=== PATIENT | male | born 1950 | race Caucasian/White ===

== ENCOUNTER 2017-10-17 09:57 | Emergency (ER) | payer MEDICARE ==
[~2017-10-17] VITALS: Ht 188 cm; Wt 98.0 kg
[~2017-10-17 09:57] MED LIST: BENA5TAB6 PO; CLON-514 PO; FLO0.4C PO; PROP10TA10 PO
[2017-10-17 10:34] LABS: BASOPHILS % (AUTO) 0.3 % (0-1); EOSINOPHILS # (AUTO) 0.1 X10'3 (0-0.9); HEMATOCRIT 48.8 % (42.0-52.0); HEMOGLOBIN 16.7 g/dl (14.0-17.9); LYMPHOCYTES % (AUTO) 29.7 % (21-51); MEAN CORPUSCULAR HEMOGLOBIN 28.6 PG (27.0-31.0); MEAN CORPUSCULAR HGB CONC 34.2 % (33.0-36.5); MEAN CORPUSCULAR VOLUME 83.6 FL (78-98); MEAN PLATELET VOLUME 7.5 FL (7.4-10.4); MONOCYTES # (AUTO) 0.7 X10'3 (0-0.9); MONOCYTES % (AUTO) 9.6 % (2-12); NEUTROPHILS % (AUTO) 59.4 % (42-75); PLATELET COUNT 325 X10'3 (140-440); RED BLOOD COUNT 5.83 X10'6 (4.70-6.10); WHITE BLOOD COUNT 6.8 X10'3 (4.5-11.0)
[2017-10-17 10:45] LABS: PARTIAL THROMBOPLASTIN TIME 29 SECONDS (22-32); PROTHROMBIN TIME 10.5 SECONDS (9.0-12.0)
[2017-10-17] MEDS ORDERED: ketorolac trometh inj. 60 MG/2 ML VIAL IM ONE (10:50)
[2017-10-17] MEDS ORDERED: ketorolac tromethamine 15mg/ml inj. IM ONE (10:50)
[2017-10-17 10:51] LABS: ALANINE AMINOTRANSFERASE 38 U/L (12-78); ALBUMIN 3.8 G/DL (3.4-5.0); ALBUMIN/GLOBULIN RATIO 0.9 (1.1-1.5); ALKALINE PHOSPHATASE 103 IU/L (46-116); ANION GAP 6 (8-16); ASPARTATE AMINO TRANSFERASE 19 U/L (10-37); BILIRUBIN,TOTAL 0.5 MG/DL (0.1-1.0); BLOOD UREA NITROGEN 16 MG/DL (7-18); CALCIUM 9.5 MG/DL (8.5-10.1); CHLORIDE 101 MMOL/L (99-107); GLUCOSE 136 MG/DL (70-104); SODIUM 136 MMOL/L (135-145); TOTAL CARBON DIOXIDE 28.6 MMOL/L (24-32); TOTAL PROTEIN 8.1 G/DL (6.4-8.2); eGFR 75 ML/MIN
[2017-10-17 11:09] VITALS: BP 159/98
[2017-10-17] MEDS ORDERED: TRAM50TA2 PO (11:38)
== END 2017-10-17 11:42 | disposition home or self-care (01) ==
LOC: ER 09:57
DX: S29.019A Strain of muscle and tendon of unspecified wall of thorax, initial encounter (principal); G89.29 Other chronic pain; I10 Essential (primary) hypertension; Z98.890 Other specified postprocedural states; Z91.09 Other allergy status, other than to drugs and biological substances; Z79.899 Other long term (current) drug therapy; X58.XXXA Exposure to other specified factors, initial encounter; Y93.89 Activity, other specified; Y92.89 Other specified places as the place of occurrence of the external cause; Y99.8 Other external cause status
CPT/HCPCS: 36415; 71045; 80053; 84484; 85025; 85610; 85730; 93005; 96372; 99285; J1885

== ENCOUNTER 2020-09-14 04:19 | Emergency (ER) | payer MEDICARE, OTHER ==
[~2020-09-14] VITALS: Ht 188 cm; Wt 97.7 kg
[~2020-09-14 04:19] MED LIST changes: -CLON-514 PO; +CLON1TAB96 PO
[2020-09-14] MEDS ORDERED: mag hydrox/Alum hydrox/simeth 30ml oral suspension PO ONE (04:30)
[2020-09-14] MEDS ORDERED: LIDOcaine Viscous 15ml cup MM PRN (04:30)
[2020-09-14] MEDS ORDERED: sucralfate 1gm/10ml UD suspension PO ONE (04:39)
--- NOTE | 2020-09-14 04:52 | NUR ---
pt refusing full cardiac workup and only wants the gi cocktail. edmd flora made aware and gi cocktail ordered
--- NOTE | 2020-09-14 05:13 | NUR ---
pt reports no relief with the GI cocktail. pt continues to refuse the cardiac workup. la hines made aware.
[2020-09-14] MEDS ORDERED: ondansetron 4mg rapidly disintigrating tab PO ONE (05:20)
--- NOTE | 2020-09-14 05:40 | NUR ---
PT IS HOSTILE WITH STAFF, DEMANING [facility] "TO MAKE ME VOMIT." ATTEMPTED TO INFORM PT THAT WE DONT ADMINISTER THAT MEDICATION HERE AND PT REPORTS NO RELIEF OF NAUSEA OR HEARTBURN AND RAISING VOICE AT STAFF. EDMD MILNER MADE AWARE OF PT REQUEST AND THAT PT WAS BECOMING HOSTILE AND IRRITABLE WITH STAFF.
[2020-09-14] MEDS ORDERED: morphine 4 MG/ML inj SYRINge IV ONE (06:40)
[2020-09-14] MEDS ORDERED: metoclopramide 5 mg/ml inj IV ONE (06:40)
[2020-09-14] MEDS ORDERED: diphenhydrAMINE 50 mg/ml inj IV ONE (06:40)
[2020-09-14] MEDS ORDERED: iohexol 300mg/ml 100ml inj. ONE (07:04)
[2020-09-14] MEDS ORDERED: oxyCODONE/APAP 5-325mg tablet PO ONE (07:15)
[2020-09-14 07:46] LABS: BASOPHILS # (AUTO) 0.1 X10'3 (0-0.2); BASOPHILS % (AUTO) 0.4 % (0-1); EOSINOPHILS % (AUTO) 0.1 % (0-6); HEMATOCRIT 48.4 % (42.0-52.0); HEMOGLOBIN 16.6 g/dl (14.0-17.9); LYMPHOCYTES # (AUTO) 0.8 X10'3 (1.1-4.8); LYMPHOCYTES % (AUTO) 6.4 % (21-51); MEAN CORPUSCULAR HEMOGLOBIN 29.3 PG (27.0-31.0); MEAN CORPUSCULAR HGB CONC 34.3 g/dL (33.0-36.5); MEAN CORPUSCULAR VOLUME 85.3 FL (78-98); MEAN PLATELET VOLUME 8.3 FL (7.4-10.4); MONOCYTES % (AUTO) 7.9 % (2-12); NEUTROPHILS # (AUTO) 11.1 X10'3 (1.8-7.7); NEUTROPHILS % (AUTO) 85.2 % (42-75); PLATELET COUNT 317 X10'3 (140-440); RED BLOOD COUNT 5.67 X10'6 (4.70-6.10); RED CELL DISTRIBUTION WIDTH 14.6 % (11.5-14.5); WHITE BLOOD COUNT 13.1 X10'3 (4.5-11.0)
[2020-09-14 07:58] LABS: ALANINE AMINOTRANSFERASE 33 U/L (12-78); ALBUMIN/GLOBULIN RATIO 0.9 (1.1-1.5); ALKALINE PHOSPHATASE 83 IU/L (46-116); ANION GAP 11 (8-16); ASPARTATE AMINO TRANSFERASE 19 U/L (10-37); BILIRUBIN,TOTAL 0.5 MG/DL (0.1-1.0); BLOOD UREA NITROGEN 23 MG/DL (7-18); BUN/CREATININE RATIO 19.8 (5.4-32.0); CALCIUM 9.5 MG/DL (8.5-10.1); CHLORIDE 101 MMOL/L (99-107); CREATININE 1.16 MG/DL (0.60-1.10); GLUCOSE 165 MG/DL (70-104); POTASSIUM 3.6 MMOL/L (3.5-5.1); SODIUM 141 MMOL/L (135-145); TOTAL CARBON DIOXIDE 29.2 MMOL/L (24-32); TOTAL PROTEIN 8.7 G/DL (6.4-8.2); eGFR 62 ML/MIN
[2020-09-14 08:02] LABS: LIPASE 159 U/L (73-393); TROPONIN I < 0.04 NG/ML (0.0-0.05)
--- NOTE | 2020-09-14 08:17 | NUR ---
Reports pain down to 7/10 from /10.
--- NOTE | 2020-09-14 08:20 | NUR ---
patient to ct.
[2020-09-14] MEDS ORDERED: FAMO40TA73 PO ×3 (09:33→10:30)
[2020-09-14] MEDS ORDERED: famotidine/PF 10 mg/ml inj IV ONE (10:05)
[2020-09-14 10:57] VITALS: BP 138/77
== END 2020-09-14 10:58 | disposition home or self-care (01) ==
LOC: ER 04:21
DX: R10.13 Epigastric pain (principal); N28.89 Other specified disorders of kidney and ureter; R11.2 Nausea with vomiting, unspecified; E11.9 Type 2 diabetes mellitus without complications; I10 Essential (primary) hypertension; G89.29 Other chronic pain; J44.9 Chronic obstructive pulmonary disease, unspecified; Z98.890 Other specified postprocedural states; Z90.49 Acquired absence of other specified parts of digestive tract; Z91.048 Other nonmedicinal substance allergy status; Z79.899 Other long term (current) drug therapy
CPT/HCPCS: 36415; 74177; 80053; 83690; 84484; 85025; 93005; 96374; 96375; 99285; J1200; J2765; J3490; Q9967

== ENCOUNTER 2020-10-26 05:45 | Inpatient (IN) | payer OTHER ==
[2020-10-19 16:01] LABS: BASOPHILS % (AUTO) 0.5 % (0-1); EOSINOPHILS % (AUTO) 0.6 % (0-6); LYMPHOCYTES # (AUTO) 1.7 X10'3 (1.1-4.8); LYMPHOCYTES % (AUTO) 32.9 % (21-51); MEAN CORPUSCULAR HEMOGLOBIN 28.5 PG (27.0-31.0); MEAN CORPUSCULAR HGB CONC 34.5 g/dL (33.0-36.5); MEAN CORPUSCULAR VOLUME 82.8 FL (78-98); MEAN PLATELET VOLUME 8.1 FL (7.4-10.4); MONOCYTES # (AUTO) 0.7 X10'3 (0-0.9); MONOCYTES % (AUTO) 13.5 % (2-12); NEUTROPHILS # (AUTO) 2.7 X10'3 (1.8-7.7); NEUTROPHILS % (AUTO) 52.5 % (42-75); PRE OP HEMATOCRIT 50.3 % (42.0-52.0); PRE OP HEMOGLOBIN 17.3 g/dL (14.0-17.9); PRE OP PLATELET COUNT 289 X10'3 (140-440); RED BLOOD COUNT 6.07 X10'6 (4.70-6.10); RED CELL DISTRIBUTION WIDTH 14.3 % (11.5-14.5)
[2020-10-19 16:06] LABS: PRE OP INR 1.1 INR; PRE OP PROTIME 11.1 SECONDS (9.0-12.0)
[2020-10-19 16:09] LABS: ALBUMIN 4.2 G/DL (3.4-5.0); ALBUMIN/GLOBULIN RATIO 0.9 (1.1-1.5); ALKALINE PHOSPHATASE 98 IU/L (46-116); BLOOD UREA NITROGEN 13 MG/DL (7-18); BUN/CREATININE RATIO 12.5 (5.4-32.0); CALCIUM 9.9 MG/DL (8.5-10.1); CHLORIDE 104 MMOL/L (99-107); CREATININE 1.04 MG/DL (0.60-1.10); PRE OP ALT 34 U/L (30-65); PRE OP ANION GAP 7 (8-16); PRE OP AST 22 U/L (10-37); PRE OP BILIRUB, TOTAL 0.5 MG/DL (0.0-1.0); PRE OP GLUCOSE 116 MG/DL (70-104); PRE OP POTASSIUM 4.1 MMOL/L (3.4-5.1); PRE OP SODIUM 142 MMOL/L (135-145); TOTAL PROTEIN 8.9 G/DL (6.4-8.2); eGFR 71 ML/MIN
[2020-10-26] VITALS (28 sets, daily range): BP systolic 107–142; BP diastolic 47–72
[~2020-10-26] VITALS: Ht 185.4 cm; Wt 97.3 kg
[~2020-10-26 05:45] MED LIST changes: +AMLO2.5T5 PO; +BENA20TA10 PO; -BENA5TAB6 PO; +CETI10TA18 PO; +DOCUMENT DATE & TIME OF BETA-BLOCKER PO ONE; +ESOM20CA PO; +METO-384 PO; -PROP10TA10 PO; +cefazolin/dext.iso 2gm/100ml IV ONE; +famotidine 20mg tablet PO ONE; +ringers solution, lacted 1,000 ML IV SCH
[2020-10-26] MEDS ORDERED: BUPIVAcaine 0.5% W/EPI /PF 30ml vial ONE ×2 (07:04→11:40)
[2020-10-26] MEDS ORDERED: sevoflurane 250ml liquid IH ONE (07:22)
[2020-10-26] MEDS ORDERED: rocuronium 10mg/ml inj IV ONE ×3 (07:22→08:14)
[2020-10-26] MEDS ORDERED: naloxone 0.4 mg/ml inj ONE (07:22)
[2020-10-26] MEDS ORDERED: dexamethasone sod phosphate 10mg/ml inj ONE (07:22)
[2020-10-26] MEDS ORDERED: morphine 4 MG/ML inj SYRINge IV PRN (07:25)
[2020-10-26] MEDS ORDERED: ondansetron/PF 4mg/2ml inj IV PRN (07:25)
[2020-10-26] MEDS ORDERED: meperidine/PF 25mg/ml syringe IV PRN ×2 (07:25)
[2020-10-26] MEDS ORDERED: proCHLORperazine 10 MG/2 ml inj IV PRN (07:25)
[2020-10-26] MEDS ORDERED: ringers solution, lacted 1,000 ML IV SCH (07:25)
[2020-10-26] MEDS ORDERED: morphine 2 MG/ML inj. syringe IV PRN (07:25)
[2020-10-26] MEDS ORDERED: midazolam 1 mg/ML 2ml injection ONE (07:27)
[2020-10-26] MEDS ORDERED: fentaNYL /PF 50mcg/ml 5ml ampule ONE ×2 (07:29→08:00)
[2020-10-26] MEDS ORDERED: propofol inj 20 ML IV ONE (07:29)
[2020-10-26] MEDS ORDERED: LIDOcaine 2% (20mg/ml) 5ml vial ONE (07:29)
[2020-10-26] MEDS ORDERED: ondansetron/PF 4mg/2ml inj ONE (08:02)
[2020-10-26] MEDS ORDERED: albumin (Human) 5% 250ml 250 ML IV ONE (09:48)
[2020-10-26] MEDS ORDERED: acetaminophen 1,000mg/100ml IV 100 ML IV ONE (11:35)
--- NOTE | 2020-10-26 11:58 | NUR ---
Received from OR via BED, accompanied by Anesthesiologist DR ZHAO and report given by Anesthesiologist. PT VERY DROWSY, NO S/S OF DISTRESS/DISCOMFORT. ABDOMEN W/2 LAP SITES W/BANDAIDS CDI, VERTICLE LEFT LATERAL INCISION W/ISLAND DRSG COVERING CDI, NOLASCO CATHETER TO GRAVITY DRAINAGE W/YELLOWISH/PINK URINE IN DRAINAGE BAG. TONJA TEMPLE AND SCD'S ON. Addendum: 10/26/20 at 1236 by Kera Clarke RN Amended: Links added.
[2020-10-26] MEDS ORDERED: zolpidem 5mg tablet PO PRN (12:10)
[2020-10-26] MEDS ORDERED: CADD PCA waste documentation MC PRN (12:10)
[2020-10-26] MEDS ORDERED: naloxone 0.4 mg/ml inj IV PRN (12:10)
[2020-10-26] MEDS ORDERED: clonazePAM 1mg tablet PO PRN (12:10)
[2020-10-26] MEDS: meperidine/PF 25mg/ml syringe IV PRN ×2 (12:37→12:46)
[2020-10-26] MEDS: HYDROmorph./NS 0.2 mg/ml CADD 100 ML IV SCH ×6 (13:54→23:00)
--- NOTE | 2020-10-26 14:54 | NUR ---
received report from HARITHA Cote. awaiting patient arrival.
--- NOTE | 2020-10-26 15:08 | NUR ---
Report called to receiving nurse. Transferred via BED, 1 BAG OF Belongings SENT W/PT TO ROOM 360B, BLL, CALL LIGHT GIVEN, SIDE RALILS UP X 2, NRUSES AID AT BEDSIDE TO RECEIVE PT AND WILL NOTIFY RECEIVING RN OF PTS ARRIVAL, PTS PAIN UNDER CONTROL. Special Issues communicated to receiving nurse. YES. Addendum: 10/26/20 at 1525 by Kera Clarke RN Amended: Links added.
--- NOTE | 2020-10-26 15:15 | NUR ---
Patient arrived to floor. VSS.
[2020-10-26] MEDS: potassium cl 20mEq in 1/2 NS 1,000 ML IV SCH ×2 (15:25→18:50)
--- NOTE | 2020-10-26 18:43 | NUR ---
Problems reprioritized. Patient report given, questions answered & plan of care reviewed with Prudence and DarlingT, RNs.
[2020-10-27] VITALS (19 sets, daily range): BP systolic 108–184; BP diastolic 52–101
[2020-10-27] MEDS: HYDROmorph./NS 0.2 mg/ml CADD 100 ML IV SCH ×5 (01:00→09:00)
[2020-10-27] MEDS: potassium cl 20mEq in 1/2 NS 1,000 ML IV SCH ×2 (04:39→14:18)
[2020-10-27 05:58] LABS: BASOPHILS % (AUTO) 0.2 % (0-1); EOSINOPHILS % (AUTO) 0 % (0-6); HEMATOCRIT 41.1 % (42.0-52.0); HEMOGLOBIN 13.9 g/dl (14.0-17.9); LYMPHOCYTES # (AUTO) 1.3 X10'3 (1.1-4.8); LYMPHOCYTES % (AUTO) 9.8 % (21-51); MEAN CORPUSCULAR HEMOGLOBIN 28.8 PG (27.0-31.0); MEAN CORPUSCULAR HGB CONC 33.8 g/dL (33.0-36.5); MEAN CORPUSCULAR VOLUME 85.1 FL (78-98); MEAN PLATELET VOLUME 8.7 FL (7.4-10.4); MONOCYTES # (AUTO) 1.9 X10'3 (0-0.9); MONOCYTES % (AUTO) 13.8 % (2-12); NEUTROPHILS # (AUTO) 10.5 X10'3 (1.8-7.7); NEUTROPHILS % (AUTO) 76.2 % (42-75); PLATELET COUNT 250 X10'3 (140-440); RED BLOOD COUNT 4.83 X10'6 (4.70-6.10); RED CELL DISTRIBUTION WIDTH 14.4 % (11.5-14.5); WHITE BLOOD COUNT 13.7 X10'3 (4.5-11.0)
[2020-10-27 06:25] LABS: ALBUMIN 3.1 G/DL (3.4-5.0); ANION GAP 7 (8-16); BLOOD UREA NITROGEN 19 MG/DL (7-18); BUN/CREATININE RATIO 12.4 (5.4-32.0); CALCIUM 8.5 MG/DL (8.5-10.1); CHLORIDE 104 MMOL/L (99-107); CREATININE 1.53 MG/DL (0.60-1.10); GLUCOSE 139 MG/DL (70-104); POTASSIUM 4.4 MMOL/L (3.5-5.1); SODIUM 140 MMOL/L (135-145); TOTAL CARBON DIOXIDE 29.2 MMOL/L (24-32); eGFR 45 ML/MIN
--- NOTE | 2020-10-27 06:44 | NUR ---
Problems reprioritized. Patient report given, questions answered & plan of care reviewed with Nafisa MG.
--- NOTE | 2020-10-27 06:44 | NUR ---
Problems reprioritized. Patient report given, questions answered & plan of care reviewed with AUSTIN MG.
[2020-10-27] MEDS: lisinopril 20mg tablet PO SCH (09:06)
[2020-10-27] MEDS: tamsulosin 0.4mg capsule PO SCH (09:07)
[2020-10-27] MEDS: pantoprazole 40mg Tablet.DR PO SCH (09:07)
[2020-10-27] MEDS: metoprolol succinate 25mg (24-HOUR) SR. Tablet PO SCH (09:07)
[2020-10-27] MEDS: amLODIPine 2.5mg tablet PO SCH (09:08)
[2020-10-27] MEDS: docusate sod 250mg capsule PO SCH (09:08)
[2020-10-27] MEDS: HYDROmorphone 1 mg/ml syringe IV PRN (12:41)
[2020-10-27 14:56] LABS: BASOPHILS % (AUTO) 0.2 % (0-1); EOSINOPHILS % (AUTO) 0 % (0-6); HEMATOCRIT 43.6 % (42.0-52.0); HEMOGLOBIN 14.8 g/dl (14.0-17.9); LYMPHOCYTES # (AUTO) 1.9 X10'3 (1.1-4.8); LYMPHOCYTES % (AUTO) 16.3 % (21-51); MEAN CORPUSCULAR HEMOGLOBIN 28.7 PG (27.0-31.0); MEAN CORPUSCULAR HGB CONC 33.9 g/dL (33.0-36.5); MEAN CORPUSCULAR VOLUME 84.6 FL (78-98); MEAN PLATELET VOLUME 8.1 FL (7.4-10.4); MONOCYTES # (AUTO) 1.8 X10'3 (0-0.9); MONOCYTES % (AUTO) 16.1 % (2-12); NEUTROPHILS # (AUTO) 7.7 X10'3 (1.8-7.7); NEUTROPHILS % (AUTO) 67.4 % (42-75); PLATELET COUNT 246 X10'3 (140-440); RED BLOOD COUNT 5.15 X10'6 (4.70-6.10); RED CELL DISTRIBUTION WIDTH 14.3 % (11.5-14.5); WHITE BLOOD COUNT 11.4 X10'3 (4.5-11.0)
--- NOTE | 2020-10-27 15:45 | NUR ---
Dr. Lopes called with Lab results. Procalcitonin ordered for AM tomorrow as ordered by Dr. Lopes. Continue Q4H VS even if sleeping. Notify Dr. Lopes if patient starts running a temp greater than 101 F. Continue to monitor.
[2020-10-27] MEDS ORDERED: labetalol 20mg/4ml (5mg/ml) syringe IV PRN (18:25)
[2020-10-27] MEDS ORDERED: morphine 2 MG/ML inj. syringe IV PRN (18:25)
[2020-10-27] MEDS ORDERED: morphine 4 MG/ML inj SYRINge IV PRN (18:25)
[2020-10-27] MEDS ORDERED: hydrALAZINE 20mg/ml inj. IV PRN (18:25)
[2020-10-27] MEDS ORDERED: fentaNYL/PF 50MCG/1 ML 2ML syringe IV PRN ×2 (18:25)
[2020-10-27] MEDS ORDERED: midazolam 1 mg/ML 2ml injection ONE (19:00)
[2020-10-27] MEDS ORDERED: fentaNYL/PF 50MCG/1 ML 2ML syringe ONE ×2 (19:00→19:54)
[2020-10-27] MEDS ORDERED: rocuronium 10mg/ml inj IV ONE (19:01)
[2020-10-27] MEDS ORDERED: sevoflurane 250ml liquid IH ONE (19:08)
[2020-10-27] MEDS ORDERED: LIDOcaine 1% (10mg/ml) 2ml vial ONE (19:09)
[2020-10-27] MEDS ORDERED: albumin (Human) 5% 250ml 250 ML IV ONE ×2 (19:41→19:53)
[2020-10-27] MEDS ORDERED: labetalol 20mg/4ml (5mg/ml) syringe IV ONE (19:57)
[2020-10-27] MEDS ORDERED: BUPIVAcaine 0.5% inj/PF 30 ML ONE (20:06)
[2020-10-27] MEDS ORDERED: ringers solution, lacted 1,000 ML IV SCH (20:10)
[2020-10-27] MEDS ORDERED: ondansetron/PF 4mg/2ml inj IV PRN ×2 (20:10→20:20)
--- NOTE | 2020-10-27 20:30 | NUR ---
received report bedside s/p abd surgery pt ventilated, sedated with fentanyl and versed. VSS, fluids running per md orders. MD plans to extubate in am. PT stable. will continue to monitor.
--- NOTE | 2020-10-27 20:34 | NUR ---
Report given to Rebecca MG, pt moved to ICU Status Post Surgery
--- NOTE | 2020-10-27 20:35 | NUR ---
ADMITTED TO PACU FROM OR ACCOMPANIED BY ANESTHESIA. INTIAL PHYSICAL ASSESSMENT DONE AND RECORDED. REPORT RECEIVED FROM ANESTHESIA. PT RECOVERED IN ICU WILL REMAIN ON VENT OVERNIGHT
[2020-10-27 20:52] LABS: ABG BASE EXCESS -0.4 mmol/L (-2.0-2.0); ABG HCO3 22.4 mmol/L (22.0-26.0); ABG PCO2 (T) 31.6 mmHg (35.0-48.0); ABG PO2 (T) 150.9 mmHg (75.0-100.0); FCOHb 0.6 % (0.0-3.9); FMetHb 0.4 % (0.0-1.5); PEEP 5 cm H2O; RESPIRATORY RATE 14 b/min; TIDAL VOLUME 700 mL; TOTAL HEMOGLOBIN 13.6 G/dl (14.0-18.0)
--- NOTE | 2020-10-27 22:00 | NUR ---
PACU DISCHARGE CRITERIA MET, HAND OVER TO ICU NURSE. REMAINS ON IV SEDATION OF VERSED AND FENTANYL..ON VENTILATOR NEXT LABS AT 0300
[2020-10-27] MEDS ORDERED: acetaminophen 1,000mg/100ml IV 100 ML IV ONE (22:15)
[2020-10-27] MEDS ORDERED: metoprolol tartrate 1mg/ml inj IV ONE (22:15)
[2020-10-27] MEDS: piperacillin/tazo 3.375gm/50ml 50 ML IV SCH (22:57)
[2020-10-27] MEDS: midazolam 100mg in NS 100ml 100 ML IV SCH (23:10)
[2020-10-28] VITALS (24 sets, daily range): BP systolic 82–141; BP diastolic 40–73
[2020-10-28] MEDS: potassium cl 20mEq in 1/2 NS 1,000 ML IV SCH ×3 (00:40→15:29)
[2020-10-28] MEDS ORDERED: ringers solution, lacted 1,000 ML IV ONE ×3 (00:40→16:10)
[2020-10-28 03:41] LABS: ABG BASE EXCESS 0.2 mmol/L (-2.0-2.0); ABG HCO3 23.5 mmol/L (22.0-26.0); ABG OXYGEN SATURATION 97.6 % (94-97); ABG PCO2 (T) 35.8 mmHg (35.0-48.0); ABG PO2 (T) 97.8 mmHg (75.0-100.0); FCOHb 0.3 % (0.0-3.9); FMetHb 0.3 % (0.0-1.5); PATIENT TEMPERATURE 38.1; PEEP 5 cm H2O; RESPIRATORY RATE 14 b/min; TIDAL VOLUME 500 mL; TOTAL HEMOGLOBIN 14.1 G/dl (14.0-18.0)
[2020-10-28 03:43] LABS: BASOPHILS % (AUTO) 0.2 % (0-1); EOSINOPHILS % (AUTO) 0.1 % (0-6); HEMATOCRIT 39.5 % (42.0-52.0); HEMOGLOBIN 13.4 g/dl (14.0-17.9); LYMPHOCYTES # (AUTO) 1.3 X10'3 (1.1-4.8); MEAN CORPUSCULAR HEMOGLOBIN 28.6 PG (27.0-31.0); MEAN CORPUSCULAR VOLUME 84.1 FL (78-98); MEAN PLATELET VOLUME 8.6 FL (7.4-10.4); MONOCYTES # (AUTO) 2.2 X10'3 (0-0.9); MONOCYTES % (AUTO) 17.4 % (2-12); NEUTROPHILS # (AUTO) 9.1 X10'3 (1.8-7.7); NEUTROPHILS % (AUTO) 72.3 % (42-75); PLATELET COUNT 248 X10'3 (140-440); RED CELL DISTRIBUTION WIDTH 14.5 % (11.5-14.5); WHITE BLOOD COUNT 12.5 X10'3 (4.5-11.0)
[2020-10-28] MEDS: piperacillin/tazo 3.375gm/50ml 50 ML IV SCH ×4 (03:59→20:24)
[2020-10-28 04:21] LABS: PLATELET ESTIMATE NORMAL; TOTAL CELLS COUNTED 100
[2020-10-28 04:31] LABS: ALBUMIN 2.8 G/DL (3.4-5.0); ANION GAP 10 (8-16); BLOOD UREA NITROGEN 19 MG/DL (7-18); BUN/CREATININE RATIO 12.4 (5.4-32.0); CALCIUM 7.3 MG/DL (8.5-10.1); CHLORIDE 104 MMOL/L (99-107); CREATININE 1.53 MG/DL (0.60-1.10); GLUCOSE 145 MG/DL (70-104); SODIUM 137 MMOL/L (135-145); eGFR 45 ML/MIN
[2020-10-28 04:34] LABS: POTASSIUM 3.9 MMOL/L (3.5-5.1)
--- NOTE | 2020-10-28 06:40 | NUR ---
Problems reprioritized. Patient report given, questions answered & plan of care reviewed with Gunjan MG.
--- NOTE | 2020-10-28 06:48 | NUR ---
Patient in room ICU 2041. I have received report from HARITHA Fernandez and had the opportunity to ask questions and assume patient care.
[2020-10-28] MEDS: dexmedetomidin/NS 400mcg/100ml 100 ML IV SCH ×2 (07:40→23:29)
[2020-10-28] MEDS: metoprolol succinate 25mg (24-HOUR) SR. Tablet PO SCH (07:42)
[2020-10-28] MEDS: lisinopril 20mg tablet PO SCH (07:42)
[2020-10-28] MEDS: amLODIPine 2.5mg tablet PO SCH (07:43)
[2020-10-28] MEDS ORDERED: docusate sod 250mg capsule PO PRN (08:00)
[2020-10-28] MEDS: tamsulosin 0.4mg capsule PO SCH (08:00)
[2020-10-28] MEDS: docusate sod 250mg capsule PO SCH (08:00)
[2020-10-28] MEDS: pantoprazole 40mg Tablet.DR PO SCH (08:00)
[2020-10-28] MEDS ORDERED: acetaminophen 325mg tablet PO PRN (08:15)
[2020-10-28] MEDS: acetaminophen 325mg tablet PO PRN (08:30)
[2020-10-28] MEDS: FENTANYL-0.9 % NACL/PF 100 ML IV PRN (09:27)
[2020-10-28] MEDS ORDERED: normal saline 500ml IV soln 500 ML IV ONE ×2 (09:55→11:10)
[2020-10-28 10:19] LABS: HEMATOCRIT 37.6 % (42.0-52.0); HEMOGLOBIN 12.6 g/dl (14.0-17.9); MEAN CORPUSCULAR HEMOGLOBIN 28.3 PG (27.0-31.0); MEAN CORPUSCULAR HGB CONC 33.5 g/dL (33.0-36.5); MEAN CORPUSCULAR VOLUME 84.6 FL (78-98); MEAN PLATELET VOLUME 7.9 FL (7.4-10.4); PLATELET COUNT 228 X10'3 (140-440); RED BLOOD COUNT 4.44 X10'6 (4.70-6.10); RED CELL DISTRIBUTION WIDTH 14.2 % (11.5-14.5)
--- NOTE | 2020-10-28 10:51 | NUR ---
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 Pt noted to have complained of abd pain and distention. Pt underwent exploratory laparotomy 10/27 and subsequently intubated. Per RN, pt may be extubated today, however pt remains somewhat hypotensive. Discussed w/ RN the possible need for nutrition support if Pt remains intubated. LBM 10/26. Limited nutrition interventions at this time given pt's status. Will continue to monitor if pt remains intubated or can advance to PO diet. Rec: 1. IF pt extubated, advance diet as tolerated 2. IF pt remains intubated, may recommend Vital HP at 85ml/hr 3. Bowel care per rx 4. Weekly wts Addendum: 10/28/20 at [address] Amended: Links added.
[2020-10-28 12:58] LABS: ABG BASE EXCESS -1.1 mmol/L (-2.0-2.0); ABG HCO3 23.5 mmol/L (22.0-26.0); ABG OXYGEN SATURATION 96.1 % (94-97); ABG PO2 (T) 88.2 mmHg (75.0-100.0); FCOHb 0.4 % (0.0-3.9); FMetHb 0.4 % (0.0-1.5); FO2Hb 95.3 % (94-97); PATIENT TEMPERATURE 38.5; PEEP 5 cm H2O; RESPIRATORY RATE 14 b/min; TIDAL VOLUME 500 mL; TOTAL HEMOGLOBIN 13.7 G/dl (14.0-18.0)
[2020-10-28 13:21] LABS: HEMATOCRIT 38.6 % (42.0-52.0); HEMOGLOBIN 12.9 g/dl (14.0-17.9); MEAN CORPUSCULAR HEMOGLOBIN 28.3 PG (27.0-31.0); MEAN CORPUSCULAR HGB CONC 33.6 g/dL (33.0-36.5); MEAN CORPUSCULAR VOLUME 84.2 FL (78-98); MEAN PLATELET VOLUME 7.8 FL (7.4-10.4); PLATELET COUNT 228 X10'3 (140-440); RED BLOOD COUNT 4.58 X10'6 (4.70-6.10); RED CELL DISTRIBUTION WIDTH 14.7 % (11.5-14.5); WHITE BLOOD COUNT 11.2 X10'3 (4.5-11.0)
[2020-10-28 13:23] LABS: CLARITY,URINE CLOUDY (Clear); COLOR,URINE YELLOW (Yellow); GLUCOSE, URINE NEGATIVE (Neg); KETONES,URINE NEGATIVE (Neg); LEUKOCYTE ESTERASE ,URINE TRACE (Neg); NITRITES, URINE NEGATIVE (Neg); OCCULT BLOOD,URINE LARGE (Neg); PH,URINE 5.5 (4.8-8.0); PROTEIN,URINE 100 mg/dl (Neg)
[2020-10-28 13:26] LABS: UA COLLECTION TYPE FOLEY CATH
[2020-10-28 13:33] LABS: WBC,URINE 0-4 /HPF (0-4)
[2020-10-28 13:34] LABS: RBC,URINE 50-100 /HPF (0-2)
[2020-10-28 13:35] LABS: AMORPHOUS URATES 2+; BACTERIA,URINE NONE SEEN /HPF (Neg)
[2020-10-28 13:36] LABS: CELLULAR CAST 0-4 /LPF (NEGATIVE); SQUAMOUS EPITHELIAL CELL,UR NONE SEEN /LPF (FEW)
[2020-10-28] MEDS ORDERED: vancomycin/NS 1 GM ADD-VANTAGE 250 ML IV SCH (15:00)
[2020-10-28] MEDS: ketorolac tromethamine 15mg/ml inj. IV SCH (15:26)
[2020-10-28] MEDS: vancomycin/NS 1 GM ADD-VANTAGE 250 ML IV SCH (16:38)
[2020-10-28] MEDS: ringers solution, lacted 1,000 ML IV SCH (17:28)
--- NOTE | 2020-10-28 18:11 | NUR ---
Problems reprioritized. Patient report given, questions answered & plan of care reviewed with kathy palmer RN.
[2020-10-28] MEDS: midazolam 100mg in NS 100ml 100 ML IV SCH (19:13)
[2020-10-28] MEDS: lactobacillus rhamnosus 10,000 MMU CELLS/CAPSULE PO SCH (20:25)
--- NOTE | 2020-10-28 22:55 | NUR ---
report given to rec rn plan of care reviewed
--- NOTE | 2020-10-28 23:00 | NUR ---
Patient in room ICU 2041. I have received report from ALLISON RN and had the opportunity to ask questions and assume patient care.
[2020-10-29] VITALS (24 sets, daily range): BP systolic 78–159; BP diastolic 42–103
[2020-10-29] MEDS: ketorolac tromethamine 15mg/ml inj. IV SCH (00:17)
[2020-10-29] MEDS: acetaminophen 325mg tablet PO PRN ×2 (01:01→18:27)
[2020-10-29] MEDS: FENTANYL-0.9 % NACL/PF 100 ML IV PRN (01:02)
[2020-10-29] MEDS: ringers solution, lacted 1,000 ML IV SCH ×4 (01:03→20:20)
[2020-10-29] MEDS: piperacillin/tazo 3.375gm/50ml 50 ML IV SCH ×4 (02:41→20:19)
[2020-10-29 03:16] LABS: ABG BASE EXCESS -0.1 mmol/L (-2.0-2.0); ABG HCO3 23.6 mmol/L (22.0-26.0); ABG OXYGEN SATURATION 97.7 % (94-97); ABG PCO2 (T) 35.5 mmHg (35.0-48.0); ABG PO2 (T) 93.3 mmHg (75.0-100.0); FCOHb 0.2 % (0.0-3.9); FMetHb 0.1 % (0.0-1.5); FO2Hb 97.4 % (94-97); PATIENT TEMPERATURE 37.1; PEEP 5 cm H2O; RESPIRATORY RATE 14 b/min; TIDAL VOLUME 500 mL; TOTAL HEMOGLOBIN 12.7 G/dl (14.0-18.0)
[2020-10-29 03:29] LABS: BASOPHILS % (AUTO) 0.1 % (0-1); EOSINOPHILS # (AUTO) 0.1 X10'3 (0-0.9); EOSINOPHILS % (AUTO) 0.8 % (0-6); HEMATOCRIT 34.2 % (42.0-52.0); HEMOGLOBIN 11.6 g/dl (14.0-17.9); LYMPHOCYTES # (AUTO) 0.9 X10'3 (1.1-4.8); LYMPHOCYTES % (AUTO) 11.6 % (21-51); MEAN CORPUSCULAR HEMOGLOBIN 28.7 PG (27.0-31.0); MEAN CORPUSCULAR HGB CONC 33.8 g/dL (33.0-36.5); MEAN PLATELET VOLUME 8.2 FL (7.4-10.4); MONOCYTES # (AUTO) 1.3 X10'3 (0-0.9); MONOCYTES % (AUTO) 16.5 % (2-12); NEUTROPHILS # (AUTO) 5.8 X10'3 (1.8-7.7); PLATELET COUNT 208 X10'3 (140-440); RED BLOOD COUNT 4.03 X10'6 (4.70-6.10); RED CELL DISTRIBUTION WIDTH 14.6 % (11.5-14.5); WHITE BLOOD COUNT 8.2 X10'3 (4.5-11.0)
[2020-10-29 04:00] LABS: ALBUMIN 1.9 G/DL (3.4-5.0); ANION GAP 8 (8-16); BLOOD UREA NITROGEN 17 MG/DL (7-18); BUN/CREATININE RATIO 11.9 (5.4-32.0); CALCIUM 7.1 MG/DL (8.5-10.1); CHLORIDE 106 MMOL/L (99-107); CREATININE 1.43 MG/DL (0.60-1.10); GLUCOSE 102 MG/DL (70-104); MAGNESIUM 1.3 MG/DL (1.5-2.4); PHOSPHORUS 1.6 MG/DL (2.3-4.5); POTASSIUM 3.5 MMOL/L (3.5-5.1); SODIUM 138 MMOL/L (135-145); eGFR 49 ML/MIN
[2020-10-29] MEDS ORDERED: albumin (Human) 5% 250ml 250 ML IV STA (04:53)
[2020-10-29] MEDS ORDERED: albumin (Human) 5% 250ml 500 ML IV ONE (04:59)
[2020-10-29] MEDS ORDERED: DEXMEDETOMIDINE 400mcg/4ml inj 400 MCG in normal saline 100ml IV soln 96 ML IV SCH (05:00)
[2020-10-29] MEDS ORDERED: albumin (Human) 5% 250ml 250 ML IV ONE ×2 (05:15)
[2020-10-29] MEDS: dexmedetomidin/NS 400mcg/100ml 100 ML IV SCH ×2 (05:17→07:28)
--- NOTE | 2020-10-29 06:06 | NUR ---
Problems reprioritized. Patient report given, questions answered & plan of care reviewed with Pearl MG.
[2020-10-29] MEDS: pantoprazole 40mg Tablet.DR PO SCH (07:22)
[2020-10-29] MEDS: docusate sod 250mg capsule PO SCH (07:22)
[2020-10-29] MEDS: lactobacillus rhamnosus 10,000 MMU CELLS/CAPSULE PO SCH ×2 (07:22→20:19)
[2020-10-29] MEDS: tamsulosin 0.4mg capsule PO SCH (07:22)
[2020-10-29] MEDS: amLODIPine 2.5mg tablet PO SCH (07:23)
[2020-10-29] MEDS: metoprolol succinate 25mg (24-HOUR) SR. Tablet PO SCH (07:23)
[2020-10-29] MEDS ORDERED: docusate sodium 100mg/10ml UD cup PO ONE (07:35)
[2020-10-29] MEDS: dexmedetomidine inj. 400 MCG in normal saline 100ml IV soln 96 ML IV SCH ×2 (10:05→20:19)
[2020-10-29] MEDS: pantoprazole 40 MG vial IV SCH (11:15)
[2020-10-29] MEDS ORDERED: potassium Cl 40MEQ/1/2NS 520ml 520 ML IV PRN (11:20)
[2020-10-29] MEDS ORDERED: magnesium 4gm in 100ml NS 100 ML IV PRN (11:20)
[2020-10-29] MEDS ORDERED: magnesium Cl slow-release 64mg tablet PO PRN (11:20)
[2020-10-29] MEDS ORDERED: sodium phosphate inj. 30 MMOL in dextrose 5%-water 250 ML IV PRN (11:20)
[2020-10-29] MEDS ORDERED: magnesium 2GM in 50ml NS 50 ML IV PRN (11:20)
[2020-10-29] MEDS ORDERED: Neutra Phos packet PO PRN (11:20)
[2020-10-29] MEDS ORDERED: magnesium hydroxide 30ml (MOM) UD suspension PO ONE (11:20)
[2020-10-29] MEDS ORDERED: potassium Cl 20 mEq SR tablet PO PRN ×2 (11:20)
[2020-10-29] MEDS ORDERED: sodium phosphate inj. 15 MMOL in dextrose 5%-water 250 ML IV PRN (11:20)
[2020-10-29] MEDS: vancomycin/NS 1 GM ADD-VANTAGE 250 ML IV SCH (16:56)
--- NOTE | 2020-10-29 18:19 | NUR ---
Problems reprioritized. Patient report given, questions answered & plan of care reviewed with HARITHA Lowery.
--- NOTE | 2020-10-29 18:20 | NUR ---
Patient in room ICU 2041. I have received report from HARITHA Brown and had the opportunity to ask questions and assume patient care. Patient is intubated w/Fentanyl running and Precedex off for possible extubated @[address] Deng.
--- NOTE | 2020-10-29 18:45 | NUR ---
Dr. Deng at bedside, patient if febrile 38.6 (I just gave Tylenol and applied ice packs). Per MD we will not intubate tonight, he will order blood cultures and ok to restart Precedex.
[2020-10-29] MEDS: metoprolol tartrate 25mg tablet PO SCH (20:00)
[2020-10-29] MEDS: K and/or MAG REPLACEMENT MC SCH (20:00)
[2020-10-29] MEDS: docusate sodium 100mg/10ml UD cup PO SCH (20:20)
[2020-10-30] VITALS (24 sets, daily range): BP systolic 108–155; BP diastolic 53–82
[2020-10-30] MEDS: piperacillin/tazo 3.375gm/50ml 50 ML IV SCH ×4 (02:40→20:34)
[2020-10-30 02:57] LABS: BASOPHILS % (AUTO) 0.4 % (0-1); EOSINOPHILS # (AUTO) 0.1 X10'3 (0-0.9); EOSINOPHILS % (AUTO) 1.8 % (0-6); HEMATOCRIT 35.9 % (42.0-52.0); HEMOGLOBIN 12.1 g/dl (14.0-17.9); LYMPHOCYTES % (AUTO) 12.8 % (21-51); MEAN CORPUSCULAR HEMOGLOBIN 28.5 PG (27.0-31.0); MEAN CORPUSCULAR HGB CONC 33.6 g/dL (33.0-36.5); MEAN CORPUSCULAR VOLUME 84.8 FL (78-98); MEAN PLATELET VOLUME 8.5 FL (7.4-10.4); MONOCYTES # (AUTO) 1.1 X10'3 (0-0.9); MONOCYTES % (AUTO) 14.2 % (2-12); NEUTROPHILS # (AUTO) 5.3 X10'3 (1.8-7.7); NEUTROPHILS % (AUTO) 70.8 % (42-75); PLATELET COUNT 228 X10'3 (140-440); RED BLOOD COUNT 4.24 X10'6 (4.70-6.10); RED CELL DISTRIBUTION WIDTH 14.3 % (11.5-14.5); WHITE BLOOD COUNT 7.5 X10'3 (4.5-11.0)
[2020-10-30 03:13] LABS: ALANINE AMINOTRANSFERASE 19 U/L (12-78); ALBUMIN/GLOBULIN RATIO 0.6 (1.1-1.5); ALKALINE PHOSPHATASE 62 IU/L (46-116); ANION GAP 6 (8-16); ASPARTATE AMINO TRANSFERASE 20 U/L (10-37); BLOOD UREA NITROGEN 12 MG/DL (7-18); BUN/CREATININE RATIO 9.2 (5.4-32.0); CALCIUM 7.1 MG/DL (8.5-10.1); CHLORIDE 108 MMOL/L (99-107); CREATININE 1.31 MG/DL (0.60-1.10); GLUCOSE 121 MG/DL (70-104); MAGNESIUM 2.2 MG/DL (1.5-2.4); PHOSPHORUS 1.8 MG/DL (2.3-4.5); POTASSIUM 3.2 MMOL/L (3.5-5.1); SODIUM 140 MMOL/L (135-145); TOTAL CARBON DIOXIDE 25.6 MMOL/L (24-32); TOTAL PROTEIN 5.3 G/DL (6.4-8.2); eGFR 54 ML/MIN
[2020-10-30 03:26] LABS: ABG BASE EXCESS 1.5 mmol/L (-2.0-2.0); ABG HCO3 25.1 mmol/L (22.0-26.0); ABG OXYGEN SATURATION 96.7 % (94-97); ABG PCO2 (T) 34.8 mmHg (35.0-48.0); ABG PO2 (T) 76.3 mmHg (75.0-100.0); ALLEN'S TEST POSITIVE; FCOHb 0.1 % (0.0-3.9); FMetHb 0.1 % (0.0-1.5); FO2Hb 96.5 % (94-97); PEEP 5 cm H2O; RESPIRATORY RATE 14 b/min; TIDAL VOLUME 500 mL; TOTAL HEMOGLOBIN 12.5 G/dl (14.0-18.0)
[2020-10-30] MEDS ORDERED: potassium phosphate inj 30 MMOL in normal saline 500ml IV soln 500 ML IV ONE (05:05)
[2020-10-30] MEDS: tamsulosin 0.4mg capsule PO SCH (08:00)
[2020-10-30] MEDS: amLODIPine 2.5mg tablet PO SCH (08:29)
[2020-10-30] MEDS: metoprolol tartrate 25mg tablet PO SCH (08:29)
[2020-10-30] MEDS: pantoprazole 40 MG vial IV SCH (08:30)
[2020-10-30] MEDS: lactobacillus rhamnosus 10,000 MMU CELLS/CAPSULE PO SCH (08:30)
[2020-10-30] MEDS: docusate sodium 100mg/10ml UD cup PO SCH (08:30)
[2020-10-30] MEDS: heparin, porcine 5000 units/ml vial SQ SCH ×3 (08:31→23:57)
[2020-10-30] MEDS ORDERED: docusate sodium 100mg/10ml UD cup NG PRN (08:55)
[2020-10-30] MEDS ORDERED: potassium Cl 20 mEq SR tablet NG PRN ×2 (08:57→08:58)
[2020-10-30] MEDS ORDERED: Neutra Phos packet NG PRN (08:58)
[2020-10-30] MEDS: FENTANYL-0.9 % NACL/PF 100 ML IV PRN (09:55)
[2020-10-30] MEDS: ringers solution, lacted 1,000 ML IV SCH ×2 (10:00→17:15)
[2020-10-30] MEDS: acetaminophen 325mg/10.15ml oral unit dose solution NG PRN (12:15)
--- NOTE | 2020-10-30 13:52 | NUR ---
TF Consult: Pt remains intubated w/ TF to start today per MD. LBM 10/26 receiving routine colace w/ PRN MoM given once 10/29. TF recs below; will monitor for TF tolerance and adjustment needs this admit. Rec: 1. TF per MD using Vital High Protein at 90ml/hr; to provide 2160ml volume, 2160 kcals, 1814ml free water, and 189g protein 2. additional water flush 150ml Q4H 3. routine bowel care; 4 days constipation 4. Weekly wts Addendum: 10/30/20 at [address] Amended: Links added.
[2020-10-30] MEDS: vancomycin/NS 1 GM ADD-VANTAGE 250 ML IV SCH (16:50)
--- NOTE | 2020-10-30 18:14 | NUR ---
Pt's abdomen firm again, painful. Informed Dr. Deng who came to bedside to asses pt. Received orders to resume sedation to maintain comfort and that he would contact surgery.
--- NOTE | 2020-10-30 18:15 | NUR ---
Problems reprioritized. Patient report given, questions answered & plan of care reviewed with HARITHA Lowery.
[2020-10-30] MEDS: dexmedetomidine inj. 400 MCG in normal saline 100ml IV soln 96 ML IV SCH ×2 (18:27→23:55)
[2020-10-30] MEDS: K and/or MAG REPLACEMENT MC SCH (20:00)
[2020-10-30] MEDS: metoprolol tartrate 25mg tablet NG SCH (20:34)
[2020-10-30] MEDS: docusate sodium 100mg/10ml UD cup NG SCH (20:35)
[2020-10-30] MEDS: lactobacillus rhamnosus 10,000 MMU CELLS/CAPSULE NG SCH (20:35)
[2020-10-31] VITALS (24 sets, daily range): BP systolic 112–176; BP diastolic 53–81
[2020-10-31] MEDS: ringers solution, lacted 1,000 ML IV SCH (01:23)
[2020-10-31] MEDS: piperacillin/tazo 3.375gm/50ml 50 ML IV SCH ×4 (02:09→19:44)
[2020-10-31 03:47] LABS: ABG BASE EXCESS 0.6 mmol/L (-2.0-2.0); ABG HCO3 24.5 mmol/L (22.0-26.0); ABG OXYGEN SATURATION 93.6 % (94-97); ABG PCO2 (T) 35.2 mmHg (35.0-48.0); ABG PO2 (T) 61.5 mmHg (75.0-100.0); ALLEN'S TEST POSITIVE; FMetHb 0.1 % (0.0-1.5); FO2Hb 93.5 % (94-97); PATIENT TEMPERATURE 36.2; PEEP 5 cm H2O; RESPIRATORY RATE 14 b/min; TIDAL VOLUME 500 mL; TOTAL HEMOGLOBIN 12.5 G/dl (14.0-18.0)
[2020-10-31] MEDS: FENTANYL-0.9 % NACL/PF 100 ML IV PRN (03:50)
[2020-10-31] MEDS: dexmedetomidine inj. 400 MCG in normal saline 100ml IV soln 96 ML IV SCH (05:02)
--- NOTE | 2020-10-31 06:10 | NUR ---
Problems reprioritized. Patient report given, questions answered & plan of care reviewed with HARITHA Carpenter.
--- NOTE | 2020-10-31 06:30 | NUR ---
Patient in room ICU 2041. I have received report from Beverley MG and had the opportunity to ask questions and assume patient care.
[2020-10-31] MEDS: K and/or MAG REPLACEMENT MC SCH ×2 (08:00→19:45)
[2020-10-31] MEDS: pantoprazole 40 MG vial IV SCH (08:43)
[2020-10-31] MEDS: heparin, porcine 5000 units/ml vial SQ SCH ×3 (08:43→23:20)
[2020-10-31] MEDS: docusate sodium 100mg/10ml UD cup NG SCH ×2 (08:43→19:44)
[2020-10-31] MEDS: metoprolol tartrate 25mg tablet NG SCH ×2 (08:44→19:45)
[2020-10-31] MEDS: lactobacillus rhamnosus 10,000 MMU CELLS/CAPSULE NG SCH ×2 (08:44→19:44)
[2020-10-31] MEDS: tamsulosin 0.4mg capsule PO SCH (08:44)
[2020-10-31] MEDS: amLODIPine 2.5mg tablet NG SCH (08:44)
[2020-10-31 09:12] LABS: BASOPHILS % (AUTO) 0.2 % (0-1); EOSINOPHILS # (AUTO) 0.2 X10'3 (0-0.9); EOSINOPHILS % (AUTO) 2.1 % (0-6); HEMATOCRIT 35.1 % (42.0-52.0); HEMOGLOBIN 12.1 g/dl (14.0-17.9); LYMPHOCYTES # (AUTO) 0.9 X10'3 (1.1-4.8); LYMPHOCYTES % (AUTO) 12.9 % (21-51); MEAN CORPUSCULAR HEMOGLOBIN 28.8 PG (27.0-31.0); MEAN CORPUSCULAR HGB CONC 34.3 g/dL (33.0-36.5); MEAN PLATELET VOLUME 8.4 FL (7.4-10.4); MONOCYTES # (AUTO) 1.2 X10'3 (0-0.9); MONOCYTES % (AUTO) 16.3 % (2-12); NEUTROPHILS % (AUTO) 68.5 % (42-75); PLATELET COUNT 260 X10'3 (140-440); RED BLOOD COUNT 4.18 X10'6 (4.70-6.10); RED CELL DISTRIBUTION WIDTH 14.3 % (11.5-14.5); WHITE BLOOD COUNT 7.3 X10'3 (4.5-11.0)
[2020-10-31 09:23] LABS: ALANINE AMINOTRANSFERASE 20 U/L (12-78); ALBUMIN/GLOBULIN RATIO 0.6 (1.1-1.5); ALKALINE PHOSPHATASE 74 IU/L (46-116); ANION GAP 10 (8-16); ASPARTATE AMINO TRANSFERASE 19 U/L (10-37); BILIRUBIN,TOTAL 0.9 MG/DL (0.1-1.0); BLOOD UREA NITROGEN 15 MG/DL (7-18); BUN/CREATININE RATIO 11.5 (5.4-32.0); CALCIUM 7.5 MG/DL (8.5-10.1); CHLORIDE 107 MMOL/L (99-107); GLUCOSE 104 MG/DL (70-104); PHOSPHORUS 2.2 MG/DL (2.3-4.5); POTASSIUM 3.6 MMOL/L (3.5-5.1); SODIUM 143 MMOL/L (135-145); TOTAL CARBON DIOXIDE 25.8 MMOL/L (24-32); TOTAL PROTEIN 5.5 G/DL (6.4-8.2); eGFR 55 ML/MIN
[2020-10-31 10:12] LABS: NUCLEATED RED BLOOD CELLS 21 /100WBC (0-0); PLATELET ESTIMATE NORMAL; TOTAL CELLS COUNTED 100
--- NOTE | 2020-10-31 11:59 | NUR ---
F/u 10/31: Pt TF never started since pt developed abdomen distention w/ bilious NG suction per RN. No NG output volume documented in EMR. No BM since admit 5 days likely impacting EN initiation and abdomen distention. TF recs remain below in case to start. Rec: 1. TF per MD using Vital High Protein at 90ml/hr; to provide 2160ml volume, 2160 kcals, 1814ml free water, and 189g protein 2. additional water flush 150ml Q4H 3. routine bowel care; 4 days constipation 4. Weekly wts Addendum: 10/31/20 at [address] Amended: Links added.
[2020-10-31] MEDS: HYDROcodone/acetaminophen 10/325mg tab PO PRN (13:26)
[2020-10-31] MEDS ORDERED: VANCOMYCIN LEVEL IV ONE (15:30)
[2020-10-31] MEDS: vancomycin/NS 1 GM ADD-VANTAGE 250 ML IV SCH (15:53)
--- NOTE | 2020-10-31 17:43 | NUR ---
Patient extubated @ 1225. Tolerated being extubated well without dyspnea. Medicated with [place] for pain relief. Abd firm with hypoactive bowel sounds. NG tube remains in place draining dark green to turquoise colored fluid. UO adequate.
--- NOTE | 2020-10-31 18:20 | NUR ---
Problems reprioritized. Patient report given, questions answered & plan of care reviewed with Devi MG.
--- NOTE | 2020-10-31 19:50 | NUR ---
Pt was able to swallow water by mouth without any difficulty, distress, or coughing. NG tube will still remain in place to suction due to abd distension.
[2020-10-31] MEDS: zolpidem 5mg tablet NG PRN (21:26)
[2020-10-31] MEDS: benzocaine/menthol oral lozeng 1 EACH BOX MM PRN (21:26)
[2020-10-31] MEDS: acetaminophen 325mg/10.15ml oral unit dose solution NG PRN (23:20)
--- NOTE | 2020-10-31 23:28 | NUR ---
Pt pulled out his NG tube. When nurse asked him why, pt responded stating, "I took it out because it only made a 2% difference with my oxygen and to me it wasn't worth it." Pt is observed to be confused. Pt currently denies any N/V. Will continue to monitor.
[2020-11-01] VITALS (20 sets, daily range): BP systolic 138–182; BP diastolic 58–86
[2020-11-01] MEDS: benzocaine/menthol oral lozeng 1 EACH BOX MM PRN (01:00)
[2020-11-01] MEDS: piperacillin/tazo 3.375gm/50ml 50 ML IV SCH ×4 (01:00→19:52)
[2020-11-01] MEDS: vancomycin/NS 1 GM ADD-VANTAGE 250 ML IV SCH ×2 (03:56→16:23)
--- NOTE | 2020-11-01 04:15 | NUR ---
Moderate to large bloody drainage observed at large abd surgical stapled site that was ROLL CARRIER. Pt denied any compliant and was asymptomatic. Gauze and island dressing was applied to absorb continuous drainage. Linen change also completed. Close monitoring continued.
--- NOTE | 2020-11-01 06:30 | NUR ---
Problems reprioritized. Patient report given, questions answered & plan of care reviewed with HARITHA Sandra.
[2020-11-01 06:45] LABS: PHOSPHORUS 2.8 MG/DL (2.3-4.5); POTASSIUM 3.8 MMOL/L (3.5-5.1)
[2020-11-01 07:06] LABS: BASOPHILS % (AUTO) 0.2 % (0-1); EOSINOPHILS % (AUTO) 0.2 % (0-6); HEMATOCRIT 35.3 % (42.0-52.0); LYMPHOCYTES # (AUTO) 0.7 X10'3 (1.1-4.8); LYMPHOCYTES % (AUTO) 7.8 % (21-51); MEAN CORPUSCULAR HEMOGLOBIN 28.6 PG (27.0-31.0); MEAN CORPUSCULAR VOLUME 84.2 FL (78-98); MEAN PLATELET VOLUME 8.3 FL (7.4-10.4); MONOCYTES # (AUTO) 1.2 X10'3 (0-0.9); NEUTROPHILS % (AUTO) 78.8 % (42-75); PLATELET COUNT 337 X10'3 (140-440); RED CELL DISTRIBUTION WIDTH 14.3 % (11.5-14.5); WHITE BLOOD COUNT 8.9 X10'3 (4.5-11.0)
[2020-11-01] MEDS: docusate sodium 100mg/10ml UD cup NG SCH ×2 (07:33→19:54)
[2020-11-01] MEDS: pantoprazole 40 MG vial IV SCH (07:33)
[2020-11-01] MEDS: heparin, porcine 5000 units/ml vial SQ SCH ×3 (07:33→23:03)
[2020-11-01] MEDS: lactobacillus rhamnosus 10,000 MMU CELLS/CAPSULE NG SCH ×2 (07:33→19:54)
[2020-11-01] MEDS: amLODIPine 2.5mg tablet NG SCH (07:34)
[2020-11-01] MEDS: tamsulosin 0.4mg capsule PO SCH (07:35)
[2020-11-01] MEDS: metoprolol tartrate 25mg tablet NG SCH ×2 (07:35→19:54)
[2020-11-01] MEDS: K and/or MAG REPLACEMENT MC SCH ×2 (08:00→20:00)
[2020-11-01] MEDS ORDERED: bisacodyl 10mg suppository rectal RC PRN (08:20)
[2020-11-01 09:17] LABS: ALANINE AMINOTRANSFERASE 32 U/L (12-78); ALBUMIN 2.1 G/DL (3.4-5.0); ALBUMIN/GLOBULIN RATIO 0.5 (1.1-1.5); ALKALINE PHOSPHATASE 95 IU/L (46-116); ANION GAP 12 (8-16); ASPARTATE AMINO TRANSFERASE 35 U/L (10-37); BILIRUBIN,TOTAL 1.3 MG/DL (0.1-1.0); BLOOD UREA NITROGEN 15 MG/DL (7-18); BUN/CREATININE RATIO 10.7 (5.4-32.0); CALCIUM 8.1 MG/DL (8.5-10.1); CHLORIDE 105 MMOL/L (99-107); GLUCOSE 115 MG/DL (70-104); SODIUM 142 MMOL/L (135-145); TOTAL CARBON DIOXIDE 24.9 MMOL/L (24-32); TOTAL PROTEIN 6.1 G/DL (6.4-8.2); eGFR 50 ML/MIN
[2020-11-01] MEDS: lactulose 20gm/30ml cup PO SCH ×2 (16:21→19:54)
[2020-11-01] MEDS: HYDROmorphone 1 mg/ml syringe IV PRN (16:57)
--- NOTE | 2020-11-01 18:30 | NUR ---
Patient in room ICU 2041. I have received report from Boaz MG and had the opportunity to ask questions and assume patient care.
--- NOTE | 2020-11-01 22:00 | NUR ---
Pt pulled out NG tube this shift. NG replaced and connected to KURTZ suction
[2020-11-01] MEDS: dexmedetomidine inj. 400 MCG in normal saline 100ml IV soln 96 ML IV SCH (22:21)
[2020-11-01] MEDS: clonazePAM 1mg tablet NG PRN (23:03)
[2020-11-02] VITALS (18 sets, daily range): BP systolic 140–166; BP diastolic 61–80
--- NOTE | 2020-11-02 00:40 | NUR ---
I was given in report this evening that pt has a blister on his right anterior upper thigh, picture taken and placed in chart. Wound care consult in for wound team to assess.
[2020-11-02] MEDS: piperacillin/tazo 3.375gm/50ml 50 ML IV SCH ×2 (01:43→09:20)
--- NOTE | 2020-11-02 02:00 | NUR ---
pt refused a complete full bed bath this shift. He stated he did not want to roll from side to side, and didn't want his bottom sheet changed. Bed bath completed to the front and sides of pt with linen change minus a draw sheet and bottom sheet. Pt also refused 0200 blood sugar stated if he was asleep he did not want to be woken up that he hasn't slept much in the last three days. Pt has not met for the hypo/hyperglycemia protocol and pt states he is only pre diabetic.
[2020-11-02] MEDS ORDERED: VANCOMYCIN LEVEL IV ONE (03:30)
[2020-11-02 03:42] LABS: BASOPHILS % (AUTO) 0.5 % (0-1); EOSINOPHILS # (AUTO) 0.1 X10'3 (0-0.9); EOSINOPHILS % (AUTO) 0.6 % (0-6); HEMATOCRIT 35.5 % (42.0-52.0); LYMPHOCYTES % (AUTO) 12.7 % (21-51); MEAN CORPUSCULAR HGB CONC 33.7 g/dL (33.0-36.5); MEAN CORPUSCULAR VOLUME 83.1 FL (78-98); MEAN PLATELET VOLUME 7.9 FL (7.4-10.4); MONOCYTES # (AUTO) 1.1 X10'3 (0-0.9); MONOCYTES % (AUTO) 13.6 % (2-12); NEUTROPHILS # (AUTO) 5.8 X10'3 (1.8-7.7); NEUTROPHILS % (AUTO) 72.6 % (42-75); PLATELET COUNT 383 X10'3 (140-440); RED BLOOD COUNT 4.27 X10'6 (4.70-6.10); RED CELL DISTRIBUTION WIDTH 14.8 % (11.5-14.5)
[2020-11-02 03:58] LABS: ALANINE AMINOTRANSFERASE 54 U/L (12-78); ALBUMIN 2.2 G/DL (3.4-5.0); ALBUMIN/GLOBULIN RATIO 0.6 (1.1-1.5); ALKALINE PHOSPHATASE 105 IU/L (46-116); ANION GAP 11 (8-16); ASPARTATE AMINO TRANSFERASE 60 U/L (10-37); BILIRUBIN,TOTAL 1.3 MG/DL (0.1-1.0); BLOOD UREA NITROGEN 15 MG/DL (7-18); BUN/CREATININE RATIO 11.5 (5.4-32.0); CALCIUM 8.3 MG/DL (8.5-10.1); CHLORIDE 105 MMOL/L (99-107); GLUCOSE 115 MG/DL (70-104); PHOSPHORUS 2.4 MG/DL (2.3-4.5); POTASSIUM 3.5 MMOL/L (3.5-5.1); SODIUM 144 MMOL/L (135-145); TOTAL CARBON DIOXIDE 28.1 MMOL/L (24-32); TOTAL PROTEIN 6.1 G/DL (6.4-8.2); VANCOMYCIN,TROUGH 16.2 UG/ML (6.0-14.0); eGFR 55 ML/MIN
--- NOTE | 2020-11-02 05:00 | NUR ---
Unable to administer Vanco Abx at 0400 d/t not compatible with other ABx already running Zosyn. Pt only has one line. Multiple attempts were made to place another IV unsuccessfully. CR in rounds and not able to try at this time. Will try pass onto day RN that a second IV is needed to administer ABX d/t compatibility. Addendum: 11/02/20 at 0607 by Rebecca Melo RN d/t incompatibility
[2020-11-02] MEDS: vancomycin/NS 1 GM ADD-VANTAGE 250 ML IV SCH (07:04)
--- NOTE | 2020-11-02 07:05 | NUR ---
Spoke to pharmacist this am regarding vanco 0400 dose delay and elevated vanco trough of 16.2. Pharm instructed hang 0400 now and they will retime this evening dose
[2020-11-02] MEDS: tamsulosin 0.4mg capsule PO SCH (07:59)
[2020-11-02] MEDS: lactobacillus rhamnosus 10,000 MMU CELLS/CAPSULE NG SCH ×2 (07:59→19:15)
[2020-11-02] MEDS: metoprolol tartrate 25mg tablet NG SCH ×2 (07:59→19:15)
[2020-11-02] MEDS: lactulose 20gm/30ml cup PO SCH ×2 (07:59→19:15)
[2020-11-02] MEDS: pantoprazole 40 MG vial IV SCH (08:00)
[2020-11-02] MEDS ORDERED: calcium carbonate 500mg chew tablet PO PRN (08:00)
[2020-11-02] MEDS: K and/or MAG REPLACEMENT MC SCH ×2 (08:00→20:00)
[2020-11-02] MEDS: amLODIPine 2.5mg tablet NG SCH (08:00)
[2020-11-02] MEDS: docusate sodium 100mg/10ml UD cup NG SCH ×2 (08:00→19:15)
[2020-11-02] MEDS: heparin, porcine 5000 units/ml vial SQ SCH ×2 (08:00→16:05)
--- NOTE | 2020-11-02 09:58 | NUR ---
pt says he has been passing gas since 0800. NGt clamped since 0800 for am meds. Unclamp now. NGT to low intermittent suction. Removed NC when family came at 0900 ( pt asked me to wake him when they arrived.) he is fully awake and no need of 02- sat 95% RA ( noc shift reported some sleep apnea with desat to low 80's).
--- NOTE | 2020-11-02 10:40 | NUR ---
Rounds this am. adressed pt needs. Physical therapy paged regarding activity plan to walk pt today.
[2020-11-02] MEDS: metoclopramide 5 mg/ml inj IV SCH ×2 (11:43→16:04)
--- NOTE | 2020-11-02 11:56 | NUR ---
F/u 11/05: Pt extubated 10/31 AM remained NPO w/ NG in place for meds and suction as needed. Advanced to regular diet yesterday however had episodes of N/V w/ PO intolerance last night per RN. DX SBO vs Ileus per KUB report last night. LBM 10/26 receiving routine colace, lactulose BID started yesterday, and reglan to start today in addition to clear liquids diet since passing gas per spectacle truer. RD d/w MD regarding PPN given no nutrition day 7 and no central access. Pt to remain on clears and assess PO tolerance per MD. PPN recs below in case PO intolerance; IF pt to remain NPO without bowel function return would benefit from TPN to meet nutrition needs post-op. Given 7 days no nutrition in addition to bilateral feet 2+ edema pt meets non-severe malnutrition criteria; MD notified. Will continue to monitor. Rec: 1. continue clear liquids diet per MD 2. advance diet as medically indicated to low-residue 3. Consider PPN given 7 days no nutrition; IF 7-10days NPO/kcal restrictive diet without return of GI function consider TPN to meet nutrition needs post-op 4. IF PPN; 2:1 Clinimix E 4.25/10 at 115ml/hr w/ separate 250ml 20% intralipids to run for 12 hours each day at 20.83ml/hr. In total; would provide 2760ml volume, 117g AA, 276g DEX (1.90mg/kg/min), and 1906 total kcals 5. routine bowel care per MD; 7 days constipation w/ Ileus vs SBO per KUB note; passing gas per MD this AM 6. IF PN; TG/PALB Q /; daily wts 7. Weekly wts Addendum: 11/02/20 at [address] Amended: Links added.
--- NOTE | 2020-11-02 12:00 | NUR ---
Up to chair, NGT clamped, pt had a walk with PT before sitting. doing well, HR strarted 98 and moved up to 120. dropped to 115 at rests. sat 95% RA
[2020-11-02] MEDS: HYDROmorphone 1 mg/ml syringe IV PRN (12:21)
[2020-11-02] MEDS: ondansetron/PF 4mg/2ml inj IV PRN (12:27)
--- NOTE | 2020-11-02 12:35 | NUR ---
c/o pain to abd, treated with dilaudid slow IVP, c/o N and treated with Zofran. 149/71, 98, 95% 16, 37.4
--- NOTE | 2020-11-02 13:30 | NUR ---
Return to bed from chair. Overall feeling "not good" he says, vss, no chills, used IS reaching only 900ml's, c/o N - unclamped G tube and drained bile. He had 325ml total out since clamping ( 400ml-175 ml from intake).
--- NOTE | 2020-11-02 15:55 | NUR ---
updated MD Osullivan of attempt to set up clamp ngt , pt N and poor po intake as well as steadily dropping urine output.BS still hypoactive. pt passing gas. N abated after zofran. Orders for IV bolus of NS
[2020-11-02] MEDS ORDERED: normal saline 1000ml 1,000 ML IV ONE (16:00)
--- NOTE | 2020-11-02 16:28 | NUR ---
MD Alamo rounded on pt just now updated on dressing just changed and wound beneath cdi, well aprox, no redness. well as events of the day so far and outputs, and activity. no new orders at this time
[2020-11-02] MEDS: ringers solution, lacted 1,000 ML IV SCH (17:48)
--- NOTE | 2020-11-02 17:57 | NUR ---
Spoke to Dr Ybarra about improved urine output post NS bolus, orders received.
--- NOTE | 2020-11-02 18:18 | NUR ---
Problems reprioritized. Patient report given, questions answered & plan of care reviewed with Rebecca perkins.
--- NOTE | 2020-11-02 18:30 | NUR ---
Patient in room ICU 2041. I have received report from Steve MG and had the opportunity to ask questions and assume patient care.
[2020-11-02] MEDS: acetaminophen 325mg/10.15ml oral unit dose solution NG PRN (20:50)
[2020-11-03] VITALS (14 sets, daily range): BP systolic 143–184; BP diastolic 63–78
[2020-11-03] MEDS: heparin, porcine 5000 units/ml vial SQ SCH ×4 (00:24→23:48)
[2020-11-03] MEDS: metoclopramide 5 mg/ml inj IV SCH ×4 (00:24→23:48)
[2020-11-03] MEDS: clonazePAM 1mg tablet NG PRN (00:31)
--- NOTE | 2020-11-03 02:27 | NUR ---
pt reused 0200 blood sugar check. He stated to me at 1999 blood sugar check that if he was asleep at 0200 he did not want woke up to check his blood sugar. He has not met for hypo/hyperglycemia protocol. Is pre diabetic. Addendum: 11/03/20 at 0229 by Rebecca Melo RN Amended: Links added.
[2020-11-03 06:20] LABS: BASOPHILS % (AUTO) 0.3 % (0-1); EOSINOPHILS # (AUTO) 0.1 X10'3 (0-0.9); EOSINOPHILS % (AUTO) 0.8 % (0-6); HEMATOCRIT 36.6 % (42.0-52.0); HEMOGLOBIN 12.5 g/dl (14.0-17.9); LYMPHOCYTES # (AUTO) 1.3 X10'3 (1.1-4.8); LYMPHOCYTES % (AUTO) 15.1 % (21-51); MEAN CORPUSCULAR HEMOGLOBIN 28.8 PG (27.0-31.0); MEAN CORPUSCULAR HGB CONC 34.2 g/dL (33.0-36.5); MEAN CORPUSCULAR VOLUME 84.3 FL (78-98); MONOCYTES # (AUTO) 1.4 X10'3 (0-0.9); MONOCYTES % (AUTO) 15.7 % (2-12); NEUTROPHILS # (AUTO) 5.9 X10'3 (1.8-7.7); NEUTROPHILS % (AUTO) 68.1 % (42-75); PLATELET COUNT 418 X10'3 (140-440); RED BLOOD COUNT 4.34 X10'6 (4.70-6.10); RED CELL DISTRIBUTION WIDTH 14.9 % (11.5-14.5); WHITE BLOOD COUNT 8.6 X10'3 (4.5-11.0)
[2020-11-03 06:33] LABS: ALANINE AMINOTRANSFERASE 73 U/L (12-78); ALBUMIN 2.3 G/DL (3.4-5.0); ALKALINE PHOSPHATASE 95 IU/L (46-116); ANION GAP 8 (8-16); ASPARTATE AMINO TRANSFERASE 75 U/L (10-37); BILIRUBIN,TOTAL 1.1 MG/DL (0.1-1.0); BLOOD UREA NITROGEN 14 MG/DL (7-18); BUN/CREATININE RATIO 11.5 (5.4-32.0); CALCIUM 8.4 MG/DL (8.5-10.1); CHLORIDE 106 MMOL/L (99-107); CREATININE 1.22 MG/DL (0.60-1.10); GLUCOSE 101 MG/DL (70-104); PHOSPHORUS 2.4 MG/DL (2.3-4.5); SODIUM 143 MMOL/L (135-145); TOTAL CARBON DIOXIDE 28.9 MMOL/L (24-32); eGFR 59 ML/MIN
--- NOTE | 2020-11-03 06:40 | NUR ---
Problems reprioritized. Patient report given, questions answered & plan of care reviewed with Chinyere Orona RN.
[2020-11-03 06:47] LABS: ALBUMIN/GLOBULIN RATIO 0.6 (1.1-1.5); TOTAL PROTEIN 6.3 G/DL (6.4-8.2)
[2020-11-03 06:48] LABS: POTASSIUM 3.6 MMOL/L (3.5-5.1)
--- NOTE | 2020-11-03 06:48 | NUR ---
Patient in room ICU 2041. I have received report from Rebecca MG and had the opportunity to ask questions and assume patient care.
[2020-11-03] MEDS: K and/or MAG REPLACEMENT MC SCH ×2 (08:00→20:00)
[2020-11-03] MEDS: pantoprazole 40 MG vial IV SCH (08:35)
[2020-11-03] MEDS: lactulose 20gm/30ml cup PO SCH ×2 (08:35→20:00)
[2020-11-03] MEDS: docusate sodium 100mg/10ml UD cup NG SCH ×2 (08:35→22:15)
[2020-11-03] MEDS: lactobacillus rhamnosus 10,000 MMU CELLS/CAPSULE NG SCH ×2 (08:36→22:15)
[2020-11-03] MEDS: tamsulosin 0.4mg capsule PO SCH (08:36)
[2020-11-03] MEDS: amLODIPine 2.5mg tablet NG SCH (08:36)
[2020-11-03] MEDS: metoprolol tartrate 25mg tablet NG SCH ×2 (08:36→22:15)
[2020-11-03] MEDS: ondansetron/PF 4mg/2ml inj IV PRN (09:19)
--- NOTE | 2020-11-03 10:27 | NUR ---
Problems reprioritized. Patient report given, questions answered & plan of care reviewed with Randolph MG in Med surg.
--- NOTE | 2020-11-03 11:00 | NUR ---
Patient OK to transfer to Med surg per MD orders. Report called into NurseRandolph, before move. All residents personal items collected and sent with patient. Pt transfered with 2LNC, and NG to rt tj. Paperwork and binder sent with patient. Patient was transferred onto bed then transfer up to med surg.
--- NOTE | 2020-11-03 15:02 | NUR ---
I didn't insert the NG tube, there was just no order from ICU and they put it in after I called them back and pointed that out. Addendum: 11/03/20 at 1504 by Jose E Brown RN Amended: Links added.
[2020-11-03] MEDS: ringers solution, lacted 1,000 ML IV SCH (15:19)
--- NOTE | 2020-11-03 18:10 | NUR ---
Patient in room [facility] 357. I have received report from Randolph MG and had the opportunity to ask questions and assume patient care.
[2020-11-03] MEDS: zolpidem 5mg tablet NG PRN (22:19)
[2020-11-04] VITALS: BP 150/74
--- NOTE | 2020-11-04 06:50 | NUR ---
Problems reprioritized. Patient report given, questions answered & plan of care reviewed with Will RN.
[2020-11-04 06:58] LABS: BASOPHILS % (AUTO) 0.4 % (0-1); EOSINOPHILS % (AUTO) 0.5 % (0-6); HEMATOCRIT 33.1 % (42.0-52.0); HEMOGLOBIN 11.3 g/dl (14.0-17.9); LYMPHOCYTES # (AUTO) 1.1 X10'3 (1.1-4.8); LYMPHOCYTES % (AUTO) 15.7 % (21-51); MEAN CORPUSCULAR HEMOGLOBIN 28.6 PG (27.0-31.0); MEAN CORPUSCULAR VOLUME 83.9 FL (78-98); MEAN PLATELET VOLUME 7.9 FL (7.4-10.4); MONOCYTES # (AUTO) 0.9 X10'3 (0-0.9); MONOCYTES % (AUTO) 13.1 % (2-12); NEUTROPHILS # (AUTO) 4.9 X10'3 (1.8-7.7); NEUTROPHILS % (AUTO) 70.3 % (42-75); PLATELET COUNT 425 X10'3 (140-440); RED BLOOD COUNT 3.94 X10'6 (4.70-6.10); RED CELL DISTRIBUTION WIDTH 14.2 % (11.5-14.5); WHITE BLOOD COUNT 6.9 X10'3 (4.5-11.0)
[2020-11-04 07:02] LABS: ALANINE AMINOTRANSFERASE 75 U/L (12-78); ALBUMIN 2.2 G/DL (3.4-5.0); ALBUMIN/GLOBULIN RATIO 0.6 (1.1-1.5); ALKALINE PHOSPHATASE 102 IU/L (46-116); ANION GAP 8 (8-16); ASPARTATE AMINO TRANSFERASE 62 U/L (10-37); BILIRUBIN,TOTAL 1.1 MG/DL (0.1-1.0); BLOOD UREA NITROGEN 16 MG/DL (7-18); CALCIUM 8.1 MG/DL (8.5-10.1); CHLORIDE 105 MMOL/L (99-107); CREATININE 1.23 MG/DL (0.60-1.10); GLUCOSE 102 MG/DL (70-104); POTASSIUM 3.1 MMOL/L (3.5-5.1); SODIUM 143 MMOL/L (135-145); TOTAL CARBON DIOXIDE 30.3 MMOL/L (24-32); TOTAL PROTEIN 5.8 G/DL (6.4-8.2); eGFR 58 ML/MIN
--- NOTE | 2020-11-04 07:08 | NUR ---
Patient in room [facility] 357A. I have received report from Amita MG and had the opportunity to ask questions and assume patient care.
[2020-11-04] MEDS: lactulose 20gm/30ml cup PO SCH ×2 (08:00→20:00)
[2020-11-04] MEDS: K and/or MAG REPLACEMENT MC SCH ×3 (08:00→22:20)
[2020-11-04] MEDS: docusate sodium 100mg/10ml UD cup NG SCH (08:00)
[2020-11-04 08:30] VITALS: BP 172/74
[2020-11-04] MEDS: lactobacillus rhamnosus 10,000 MMU CELLS/CAPSULE NG SCH (09:17)
[2020-11-04] MEDS: tamsulosin 0.4mg capsule PO SCH (09:18)
[2020-11-04] MEDS: metoprolol tartrate 25mg tablet NG SCH (09:18)
[2020-11-04] MEDS: amLODIPine 2.5mg tablet NG SCH (09:19)
[2020-11-04] MEDS: pantoprazole 40 MG vial IV SCH (09:20)
[2020-11-04] MEDS: heparin, porcine 5000 units/ml vial SQ SCH ×2 (09:21→16:00)
[2020-11-04] MEDS: metoclopramide 5 mg/ml inj IV SCH ×2 (09:21→17:02)
[2020-11-04 10:08] LABS: TOTAL CELLS COUNTED 100
[2020-11-04 10:10] LABS: PLATELET ESTIMATE NORMAL
[2020-11-04] MEDS ORDERED: magnesium 4gm in 100ml NS 100 ML IV PRN (10:30)
[2020-11-04] MEDS ORDERED: potassium Cl 20 mEq SR tablet PO PRN (10:30)
[2020-11-04] MEDS ORDERED: magnesium Cl slow-release 64mg tablet PO PRN (10:30)
[2020-11-04] MEDS ORDERED: magnesium 2GM in 50ml NS 50 ML IV PRN (10:30)
[2020-11-04] MEDS ORDERED: potassium Cl 40MEQ/1/2NS 520ml 520 ML IV PRN (10:30)
[2020-11-04] MEDS: acetaminophen 325mg/10.15ml oral unit dose solution NG PRN (10:50)
[2020-11-04] MEDS: ringers solution, lacted 1,000 ML IV SCH (10:53)
[2020-11-04 13:11] VITALS: BP 157/74
--- NOTE | 2020-11-04 18:40 | NUR ---
Patient in room [facility] 357. I have received report from Will MG and had the opportunity to ask questions and assume patient care.
[2020-11-04 19:00] VITALS: BP 155/63
[2020-11-04] MEDS ORDERED: acetaminophen 325mg/10.15ml oral unit dose solution PO PRN (20:03)
[2020-11-04] MEDS ORDERED: clonazePAM 1mg tablet PO PRN (20:03)
[2020-11-04] MEDS ORDERED: metoprolol tartrate 25mg tablet PO SCH (20:04)
[2020-11-04] MEDS ORDERED: Neutra Phos packet PO PRN (20:06)
[2020-11-04] MEDS ORDERED: acetaminophen 325mg tablet PO PRN (20:07)
[2020-11-04] MEDS: docusate sod 100mg capsule PO SCH (20:25)
[2020-11-04] MEDS: ondansetron/PF 4mg/2ml inj IV PRN (21:14)
[2020-11-04] MEDS: metoprolol tartrate 25mg tablet PO SCH (21:20)
[2020-11-04] MEDS: potassium Cl 20 mEq SR tablet PO PRN (22:42)
[2020-11-05] VITALS: BP 130/59
[2020-11-05] MEDS: heparin, porcine 5000 units/ml vial SQ SCH ×4 (00:31→23:42)
[2020-11-05] MEDS: metoclopramide 5 mg/ml inj IV SCH ×3 (00:31→17:03)
[2020-11-05] MEDS: ondansetron/PF 4mg/2ml inj IV PRN (02:58)
[2020-11-05] MEDS: ringers solution, lacted 1,000 ML IV SCH ×2 (04:35→23:44)
[2020-11-05] MEDS: HYDROcodone/acetaminophen 10/325mg tab PO PRN ×2 (04:35→21:43)
--- NOTE | 2020-11-05 04:44 | NUR ---
promotional table spacer promotional table spacer Page Sent promotional table spacer PAGER ID: [phone] MESSAGE: Mireya Beti has nausea unresolved by Dalila. Please may I have order for Compazine? Charlie Levi [phone] (102 character message out of a maximum of 240) Close [X] Send Another Page Thank you for visiting [facility] promotional table spacer promotional table spacer
[2020-11-05] MEDS ORDERED: proCHLORperazine 10mg tablet PO ONE (04:45)
[2020-11-05 06:24] LABS: BASOPHILS % (AUTO) 0.3 % (0-1); EOSINOPHILS # (AUTO) 0.1 X10'3 (0-0.9); EOSINOPHILS % (AUTO) 0.8 % (0-6); LYMPHOCYTES # (AUTO) 1.2 X10'3 (1.1-4.8); MEAN CORPUSCULAR HGB CONC 34.3 g/dL (33.0-36.5); MEAN CORPUSCULAR VOLUME 84.5 FL (78-98); MEAN PLATELET VOLUME 7.6 FL (7.4-10.4); MONOCYTES % (AUTO) 14.4 % (2-12); NEUTROPHILS # (AUTO) 4.8 X10'3 (1.8-7.7); NEUTROPHILS % (AUTO) 67.5 % (42-75); PLATELET COUNT 415 X10'3 (140-440); RED BLOOD COUNT 3.78 X10'6 (4.70-6.10); RED CELL DISTRIBUTION WIDTH 14.7 % (11.5-14.5)
[2020-11-05 06:46] LABS: ALANINE AMINOTRANSFERASE 87 U/L (12-78); ALBUMIN 2.1 G/DL (3.4-5.0); ALBUMIN/GLOBULIN RATIO 0.6 (1.1-1.5); ALKALINE PHOSPHATASE 105 IU/L (46-116); ANION GAP 7 (8-16); ASPARTATE AMINO TRANSFERASE 71 U/L (10-37); BLOOD UREA NITROGEN 16 MG/DL (7-18); BUN/CREATININE RATIO 13.8 (5.4-32.0); CALCIUM 7.7 MG/DL (8.5-10.1); CHLORIDE 106 MMOL/L (99-107); CREATININE 1.16 MG/DL (0.60-1.10); GLUCOSE 103 MG/DL (70-104); MAGNESIUM 1.9 MG/DL (1.5-2.4); POTASSIUM 3.4 MMOL/L (3.5-5.1); SODIUM 141 MMOL/L (135-145); TOTAL CARBON DIOXIDE 27.7 MMOL/L (24-32); TOTAL PROTEIN 5.6 G/DL (6.4-8.2); eGFR 62 ML/MIN
--- NOTE | 2020-11-05 06:53 | NUR ---
Patient in room [facility] 357. I have received report from Amita MG and had the opportunity to ask questions and assume patient care.
--- NOTE | 2020-11-05 06:55 | NUR ---
Problems reprioritized. Patient report given, questions answered & plan of care reviewed with Will RN.
[2020-11-05 07:15] LABS: PLATELET ESTIMATE NORMAL; TOTAL CELLS COUNTED 100
[2020-11-05 08:00] VITALS: BP 132/54
[2020-11-05] MEDS: lactulose 20gm/30ml cup PO SCH (08:00)
[2020-11-05] MEDS: K and/or MAG REPLACEMENT MC SCH ×4 (08:00→21:44)
[2020-11-05] MEDS: docusate sod 100mg capsule PO SCH ×2 (09:32→20:00)
[2020-11-05] MEDS: lactobacillus rhamnosus 10,000 MMU CELLS/CAPSULE PO SCH ×2 (09:32→21:34)
[2020-11-05] MEDS: tamsulosin 0.4mg capsule PO SCH (09:32)
[2020-11-05] MEDS: metoprolol tartrate 25mg tablet PO SCH ×2 (09:33→21:35)
[2020-11-05] MEDS: lansoprazole 15mg solutab PO SCH (09:34)
--- NOTE | 2020-11-05 14:22 | NUR ---
F/u 11/05: Pt advanced to Full liquid diet today and was able to consume about 75% of lunch. Pt has had inadequate nutrition for the last ~10days; going between NPO and Clear liquids. NGT was removed 11/04. Pt reports his appetite is low to moderate and he would like to have solid foods. Pt also agrees to trying ONS. Pt states he is nauseated but no vomiting. Discussed w/ RN about advancing to CCHO diet if MD agreeable. LBM 11/04 w/ multiple BM's d/t resolution of constipation. KUB today showed improvement in SBO/Ileus Will continue to monitor PO trends following diet advancement. Rec: 1. Advance to CCHO diet per MD 2. Ensure Enlive TID to provide 1050kcals and 60g protein if consumed 100% 3. Bowel care per rx 4. Weekly wts Addendum: 11/05/20 at [address] Amended: Links added.
[2020-11-05] MEDS: potassium Cl 20 mEq SR tablet PO PRN (17:02)
[2020-11-05] MEDS ORDERED: lactose-reduced food (Ensure Enlive) - 237ml bottle PO SCH (18:00)
--- NOTE | 2020-11-05 18:53 | NUR ---
Problems reprioritized. Patient report given, questions answered & plan of care reviewed with Denzel MG.
[2020-11-05 19:00] VITALS: BP 160/64
[2020-11-06] MEDS: HYDROcodone/acetaminophen 10/325mg tab PO PRN ×3 (02:53→21:44)
--- NOTE | 2020-11-06 06:06 | NUR ---
Problems reprioritized. Patient report given, questions answered & plan of care reviewed with ABHINAV. Addendum: 11/06/20 at 0607 by Tarik Clark RN Amended: Links added.
[2020-11-06 06:22] LABS: BASOPHILS % (AUTO) 0.5 % (0-1); EOSINOPHILS # (AUTO) 0.1 X10'3 (0-0.9); EOSINOPHILS % (AUTO) 1.3 % (0-6); HEMATOCRIT 32.2 % (42.0-52.0); HEMOGLOBIN 11.3 g/dl (14.0-17.9); LYMPHOCYTES # (AUTO) 1.3 X10'3 (1.1-4.8); LYMPHOCYTES % (AUTO) 19.5 % (21-51); MEAN CORPUSCULAR HEMOGLOBIN 29.1 PG (27.0-31.0); MEAN CORPUSCULAR HGB CONC 35.1 g/dL (33.0-36.5); MEAN CORPUSCULAR VOLUME 82.8 FL (78-98); MEAN PLATELET VOLUME 7.9 FL (7.4-10.4); MONOCYTES # (AUTO) 0.9 X10'3 (0-0.9); MONOCYTES % (AUTO) 13.5 % (2-12); NEUTROPHILS # (AUTO) 4.5 X10'3 (1.8-7.7); NEUTROPHILS % (AUTO) 65.2 % (42-75); PLATELET COUNT 430 X10'3 (140-440); RED BLOOD COUNT 3.89 X10'6 (4.70-6.10); RED CELL DISTRIBUTION WIDTH 14.6 % (11.5-14.5); WHITE BLOOD COUNT 6.9 X10'3 (4.5-11.0)
[2020-11-06 06:42] LABS: ALANINE AMINOTRANSFERASE 91 U/L (12-78); ALBUMIN 2.2 G/DL (3.4-5.0); ALBUMIN/GLOBULIN RATIO 0.6 (1.1-1.5); ALKALINE PHOSPHATASE 100 IU/L (46-116); ANION GAP 9 (8-16); ASPARTATE AMINO TRANSFERASE 57 U/L (10-37); BILIRUBIN,TOTAL 0.8 MG/DL (0.1-1.0); BLOOD UREA NITROGEN 14 MG/DL (7-18); BUN/CREATININE RATIO 11.1 (5.4-32.0); CALCIUM 7.6 MG/DL (8.5-10.1); CHLORIDE 106 MMOL/L (99-107); CREATININE 1.26 MG/DL (0.60-1.10); GLUCOSE 117 MG/DL (70-104); MAGNESIUM 1.9 MG/DL (1.5-2.4); POTASSIUM 3.5 MMOL/L (3.5-5.1); SODIUM 143 MMOL/L (135-145); TOTAL CARBON DIOXIDE 28.4 MMOL/L (24-32); TOTAL PROTEIN 5.9 G/DL (6.4-8.2); eGFR 57 ML/MIN
--- NOTE | 2020-11-06 06:49 | NUR ---
Patient in room [facility] 357. I have received report from Denzel MG and had the opportunity to ask questions and assume patient care.
[2020-11-06 07:00] VITALS: BP 161/68
[2020-11-06 07:31] LABS: PLATELET ESTIMATE NORMAL; TOTAL CELLS COUNTED 100
[2020-11-06] MEDS: K and/or MAG REPLACEMENT MC SCH ×2 (08:00→20:00)
[2020-11-06] MEDS: tamsulosin 0.4mg capsule PO SCH (08:51)
[2020-11-06] MEDS: lactobacillus rhamnosus 10,000 MMU CELLS/CAPSULE PO SCH ×2 (08:51→21:36)
[2020-11-06] MEDS: lansoprazole 15mg solutab PO SCH (08:51)
[2020-11-06] MEDS: docusate sod 100mg capsule PO SCH ×2 (08:52→21:35)
[2020-11-06] MEDS: metoprolol tartrate 25mg tablet PO SCH ×2 (08:52→21:36)
[2020-11-06] MEDS: heparin, porcine 5000 units/ml vial SQ SCH ×3 (08:53→23:48)
--- NOTE | 2020-11-06 09:27 | NUR ---
Patient and his family expressed disappointment with PT not seen by patient yesterday. They wanted to talk to the charge nurse. Charge nurse Angella spoke to the son and at bedside. PT was paged by Kayode, Filter Screen Cleaner requesting for PT to see this patient today.
--- NOTE | 2020-11-06 09:41 | NUR ---
Paged PT Surgical Jacob RN RE: Charlie Bang. Can we please see this patient today as he was not seen yesterday. Patient and family already complaining about this and unhappy.
[2020-11-06 11:00] VITALS: BP 130/73
--- NOTE | 2020-11-06 12:10 | NUR ---
Paged Dr. Velázquez PAGER ID: [phone] MESSAGE: Surgical Jacob RN ext [phone]. RE: Charlie Bang. Patient has leg swelling. He said he is feeling "congested" denies short of breath. Do you want us to check his proBNP?
[2020-11-06 18:30] VITALS: BP 164/68
--- NOTE | 2020-11-06 18:53 | NUR ---
Problems reprioritized. Patient report given, questions answered & plan of care reviewed with Horace MG.
[2020-11-07] VITALS: BP 160/68
--- NOTE | 2020-11-07 03:56 | NUR ---
unable to assess Addendum: 11/07/20 at 0356 by Horace Mallory RN Amended: Links added.
[2020-11-07 06:32] LABS: BASOPHILS % (AUTO) 0.4 % (0-1); EOSINOPHILS # (AUTO) 0.1 X10'3 (0-0.9); EOSINOPHILS % (AUTO) 1.6 % (0-6); HEMATOCRIT 35.1 % (42.0-52.0); HEMOGLOBIN 12.3 g/dl (14.0-17.9); LYMPHOCYTES # (AUTO) 1.2 X10'3 (1.1-4.8); LYMPHOCYTES % (AUTO) 19.7 % (21-51); MEAN CORPUSCULAR HGB CONC 34.9 g/dL (33.0-36.5); MEAN CORPUSCULAR VOLUME 83.2 FL (78-98); MEAN PLATELET VOLUME 7.9 FL (7.4-10.4); MONOCYTES # (AUTO) 0.9 X10'3 (0-0.9); MONOCYTES % (AUTO) 14.5 % (2-12); NEUTROPHILS # (AUTO) 3.9 X10'3 (1.8-7.7); NEUTROPHILS % (AUTO) 63.8 % (42-75); PLATELET COUNT 434 X10'3 (140-440); RED BLOOD COUNT 4.23 X10'6 (4.70-6.10); RED CELL DISTRIBUTION WIDTH 14.7 % (11.5-14.5); WHITE BLOOD COUNT 6.1 X10'3 (4.5-11.0)
[2020-11-07 06:45] LABS: ALANINE AMINOTRANSFERASE 77 U/L (12-78); ALBUMIN 2.3 G/DL (3.4-5.0); ALBUMIN/GLOBULIN RATIO 0.6 (1.1-1.5); ALKALINE PHOSPHATASE 110 IU/L (46-116); ANION GAP 6 (8-16); ASPARTATE AMINO TRANSFERASE 40 U/L (10-37); BILIRUBIN,TOTAL 0.8 MG/DL (0.1-1.0); BLOOD UREA NITROGEN 10 MG/DL (7-18); BUN/CREATININE RATIO 8.5 (5.4-32.0); CALCIUM 8.1 MG/DL (8.5-10.1); CHLORIDE 106 MMOL/L (99-107); CREATININE 1.18 MG/DL (0.60-1.10); GLUCOSE 116 MG/DL (70-104); MAGNESIUM 1.6 MG/DL (1.5-2.4); POTASSIUM 3.4 MMOL/L (3.5-5.1); SODIUM 142 MMOL/L (135-145); TOTAL CARBON DIOXIDE 29.7 MMOL/L (24-32); TOTAL PROTEIN 6.2 G/DL (6.4-8.2); eGFR 61 ML/MIN
[2020-11-07 07:00] VITALS: BP 166/72
--- NOTE | 2020-11-07 07:41 | NUR ---
Problems reprioritized. Patient report given, questions answered & plan of care reviewed with Jacob MG.
[2020-11-07] MEDS: K and/or MAG REPLACEMENT MC SCH ×2 (08:00→20:00)
[2020-11-07] MEDS: tamsulosin 0.4mg capsule PO SCH (08:52)
[2020-11-07] MEDS: lactobacillus rhamnosus 10,000 MMU CELLS/CAPSULE PO SCH ×2 (08:52→20:56)
[2020-11-07] MEDS: metoprolol tartrate 25mg tablet PO SCH ×2 (08:52→20:56)
[2020-11-07] MEDS: docusate sod 100mg capsule PO SCH ×2 (08:52→20:56)
[2020-11-07] MEDS: lansoprazole 15mg solutab PO SCH (08:52)
[2020-11-07] MEDS: heparin, porcine 5000 units/ml vial SQ SCH ×2 (08:53→16:38)
[2020-11-07 11:00] VITALS: BP 166/75
--- NOTE | 2020-11-07 11:24 | NUR ---
Patient walked from room to the hallway 300 feet using a rehab walker, gait belt was applied, and a chair followed while he was ambulated. He was assisted by 2 nursing staff
--- NOTE | 2020-11-07 12:58 | NUR ---
Paged Dr. Velázquez PAGER ID: [phone] MESSAGE: Surgical Jacob MG ext [phone]. RE: Charlie Bang. Patient feet and both legs were swollen. Do you ant him to be on Lasix?
--- NOTE | 2020-11-07 18:35 | NUR ---
Patient in room [facility] 357. I have received report from Jacob MG and had the opportunity to ask questions and assume patient care.
--- NOTE | 2020-11-07 18:46 | NUR ---
Problems reprioritized. Patient report given, questions answered & plan of care reviewed with Val MG.
[2020-11-07 19:00] VITALS: BP 170/72
[2020-11-07] MEDS: zolpidem 5mg tablet PO PRN (20:59)
[2020-11-07] MEDS: HYDROcodone/acetaminophen 10/325mg tab PO PRN (21:00)
[2020-11-07 21:05] VITALS: BP 171/77
--- NOTE | 2020-11-08 | NUR ---
Pt stated he didn't "want a shot", he wanted to sleep. Heparin non-administered.
[2020-11-08] MEDS: HYDROcodone/acetaminophen 10/325mg tab PO PRN ×2 (06:09→22:52)
--- NOTE | 2020-11-08 06:56 | NUR ---
Problems reprioritized. Patient report given, questions answered & plan of care reviewed with Norah MG.
[2020-11-08 07:00] VITALS: BP 163/82
--- NOTE | 2020-11-08 07:00 | NUR ---
Patient in room [facility] 357. I have received report from Val MG and had the opportunity to ask questions and assume patient care.
--- NOTE | 2020-11-08 07:00 | NUR ---
Pt refused accucheck, states he doesn't need it. MD aware. Will continue to monitor.
[2020-11-08] MEDS: docusate sod 100mg capsule PO SCH ×2 (08:00→19:25)
[2020-11-08] MEDS: K and/or MAG REPLACEMENT MC SCH ×2 (08:00→19:24)
[2020-11-08 08:07] LABS: BASOPHILS % (AUTO) 0.6 % (0-1); EOSINOPHILS # (AUTO) 0.1 X10'3 (0-0.9); EOSINOPHILS % (AUTO) 1.3 % (0-6); HEMATOCRIT 36.9 % (42.0-52.0); HEMOGLOBIN 12.5 g/dl (14.0-17.9); LYMPHOCYTES # (AUTO) 1.5 X10'3 (1.1-4.8); LYMPHOCYTES % (AUTO) 21.7 % (21-51); MEAN CORPUSCULAR HEMOGLOBIN 28.3 PG (27.0-31.0); MEAN CORPUSCULAR VOLUME 83.4 FL (78-98); MEAN PLATELET VOLUME 7.8 FL (7.4-10.4); MONOCYTES # (AUTO) 1.1 X10'3 (0-0.9); MONOCYTES % (AUTO) 15.4 % (2-12); NEUTROPHILS # (AUTO) 4.2 X10'3 (1.8-7.7); PLATELET COUNT 461 X10'3 (140-440); RED BLOOD COUNT 4.42 X10'6 (4.70-6.10); WHITE BLOOD COUNT 6.8 X10'3 (4.5-11.0)
[2020-11-08 08:22] LABS: ALANINE AMINOTRANSFERASE 72 U/L (12-78); ALBUMIN 2.5 G/DL (3.4-5.0); ALBUMIN/GLOBULIN RATIO 0.6 (1.1-1.5); ALKALINE PHOSPHATASE 115 IU/L (46-116); ANION GAP 8 (8-16); ASPARTATE AMINO TRANSFERASE 45 U/L (10-37); BILIRUBIN,TOTAL 0.9 MG/DL (0.1-1.0); BLOOD UREA NITROGEN 11 MG/DL (7-18); BUN/CREATININE RATIO 9.2 (5.4-32.0); CALCIUM 8.4 MG/DL (8.5-10.1); CHLORIDE 104 MMOL/L (99-107); GLUCOSE 117 MG/DL (70-104); MAGNESIUM 1.8 MG/DL (1.5-2.4); POTASSIUM 3.5 MMOL/L (3.5-5.1); SODIUM 139 MMOL/L (135-145); TOTAL CARBON DIOXIDE 27.2 MMOL/L (24-32); TOTAL PROTEIN 6.7 G/DL (6.4-8.2); eGFR 60 ML/MIN
[2020-11-08] MEDS: heparin, porcine 5000 units/ml vial SQ SCH ×3 (09:10→16:03)
[2020-11-08] MEDS: lactobacillus rhamnosus 10,000 MMU CELLS/CAPSULE PO SCH ×2 (09:11→19:36)
[2020-11-08] MEDS: tamsulosin 0.4mg capsule PO SCH (09:11)
[2020-11-08] MEDS: lansoprazole 15mg solutab PO SCH (09:11)
[2020-11-08] MEDS: metoprolol tartrate 25mg tablet PO SCH ×2 (09:12→19:37)
[2020-11-08 09:14] LABS: PLATELET ESTIMATE INCREASED; TOTAL CELLS COUNTED 100
[2020-11-08] MEDS: furosemide 20 MG/2 ML vial IV SCH (10:56)
[2020-11-08 11:00] VITALS: BP 145/84
--- NOTE | 2020-11-08 13:44 | NUR ---
F/u 11/08: Pt has been eating well, mostly 75% of meals on CCHO diet, though still not meeting needs. ONS unverified in EMR, discussed w/ RN that pt can still benefit from ONS to help meet nutrient needs. Pt noted to refuse accuchek and some meds. No N/V/D noted, LBM 11/07. Will continue to monitor. Rec: 1. Continue CCHO diet as tolerated 2. Ensure Enlive TID to provide 1050kcals and 60g protein if consumed 100% 3. Bowel care per rx 4. Weekly wts Addendum: 11/08/20 at [address] Amended: Links added.
--- NOTE | 2020-11-08 14:26 | NUR ---
PAGER ID: [phone] MESSAGE: re: 357A, Darwinabdias Charlie, room 357A Manager Category Lonny [email or web address] is asking if you would please address the ensure alive recommendations from 11/05 in the orders. thank you, Norah [phone]
[2020-11-08 19:00] VITALS: BP 171/80
--- NOTE | 2020-11-08 19:15 | NUR ---
Problems reprioritized. Patient report given, questions answered & plan of care reviewed with Cheryl MG.
--- NOTE | 2020-11-08 19:25 | NUR ---
Pt refused a.m. and p.m. Colace doses due to several BMs since last Noc. aware. Will continue to monitor.
--- NOTE | 2020-11-08 20:45 | NUR ---
Pt complained of feeling a little SOB, and stating he can smell smoke. VSS RR-20 even and unlabored, HR 80, pulse ox 95-96% on RA, Blood [id number]/83, (very smokey conditions outside and can smell smoke on unit). printing roller polisher notified and in to assess pt. Pt states SOB condition passing. Will continue to monitor.
[2020-11-08] MEDS: zolpidem 5mg tablet PO PRN (22:51)
[2020-11-09] VITALS: BP 157/72
[2020-11-09] MEDS: heparin, porcine 5000 units/ml vial SQ SCH ×4 (01:02→23:19)
--- NOTE | 2020-11-09 06:54 | NUR ---
Patient in room [facility] 357. I have received report from HARITHA Luna and had the opportunity to ask questions and assume patient care.
[2020-11-09 07:19] LABS: BASOPHILS % (AUTO) 0.6 % (0-1); EOSINOPHILS # (AUTO) 0.1 X10'3 (0-0.9); EOSINOPHILS % (AUTO) 1.4 % (0-6); HEMATOCRIT 41.5 % (42.0-52.0); HEMOGLOBIN 14.1 g/dl (14.0-17.9); LYMPHOCYTES # (AUTO) 1.6 X10'3 (1.1-4.8); LYMPHOCYTES % (AUTO) 23.4 % (21-51); MEAN CORPUSCULAR HEMOGLOBIN 28.5 PG (27.0-31.0); MEAN CORPUSCULAR HGB CONC 34.1 g/dL (33.0-36.5); MEAN CORPUSCULAR VOLUME 83.8 FL (78-98); MONOCYTES % (AUTO) 15.3 % (2-12); NEUTROPHILS % (AUTO) 59.3 % (42-75); PLATELET COUNT 448 X10'3 (140-440); RED BLOOD COUNT 4.95 X10'6 (4.70-6.10); RED CELL DISTRIBUTION WIDTH 15.4 % (11.5-14.5); WHITE BLOOD COUNT 6.7 X10'3 (4.5-11.0)
[2020-11-09 07:41] LABS: ALANINE AMINOTRANSFERASE 76 U/L (12-78); ALBUMIN 2.7 G/DL (3.4-5.0); ALBUMIN/GLOBULIN RATIO 0.6 (1.1-1.5); ALKALINE PHOSPHATASE 115 IU/L (46-116); ANION GAP 10 (8-16); ASPARTATE AMINO TRANSFERASE 45 U/L (10-37); BILIRUBIN,TOTAL 0.7 MG/DL (0.1-1.0); BLOOD UREA NITROGEN 16 MG/DL (7-18); BUN/CREATININE RATIO 11.5 (5.4-32.0); CALCIUM 8.7 MG/DL (8.5-10.1); CHLORIDE 103 MMOL/L (99-107); CREATININE 1.39 MG/DL (0.60-1.10); GLUCOSE 127 MG/DL (70-104); MAGNESIUM 1.8 MG/DL (1.5-2.4); POTASSIUM 3.4 MMOL/L (3.5-5.1); SODIUM 141 MMOL/L (135-145); TOTAL CARBON DIOXIDE 28.4 MMOL/L (24-32); TOTAL PROTEIN 7.2 G/DL (6.4-8.2); eGFR 51 ML/MIN
[2020-11-09 08:00] VITALS: BP 157/67
[2020-11-09] MEDS: K and/or MAG REPLACEMENT MC SCH ×2 (08:00→20:00)
[2020-11-09] MEDS: furosemide 20 MG/2 ML vial IV SCH (08:00)
[2020-11-09 08:19] LABS: ANISOCYTOSIS 1+; PLATELET ESTIMATE INCREASED; TOTAL CELLS COUNTED 100
[2020-11-09 08:20] LABS: MICROCYTOSIS 1+
[2020-11-09] MEDS: lactobacillus rhamnosus 10,000 MMU CELLS/CAPSULE PO SCH ×2 (09:24→20:31)
[2020-11-09] MEDS: lansoprazole 15mg solutab PO SCH (09:25)
[2020-11-09] MEDS: metoprolol tartrate 25mg tablet PO SCH ×2 (09:25→20:30)
[2020-11-09] MEDS: docusate sod 100mg capsule PO SCH ×2 (09:25→20:29)
[2020-11-09] MEDS: tamsulosin 0.4mg capsule PO SCH (09:25)
[2020-11-09 11:00] VITALS: BP 145/70
[2020-11-09] MEDS ORDERED: potassium Cl 20 mEq SR tablet PO ONE (12:45)
--- NOTE | 2020-11-09 18:41 | NUR ---
Problems reprioritized. Patient report given, questions answered & plan of care reviewed with YELENA RN.
[2020-11-09 20:00] VITALS: BP 170/75
[2020-11-09] MEDS: HYDROcodone/acetaminophen 10/325mg tab PO PRN (23:06)
[2020-11-09] MEDS: zolpidem 5mg tablet PO PRN (23:42)
[2020-11-10] VITALS: BP 157/71
--- NOTE | 2020-11-10 03:35 | NUR ---
Patient in room [facility] 357. I have received report from Megha MG and had the opportunity to ask questions and assume patient care.
[2020-11-10 06:06] LABS: BASOPHILS # (AUTO) 0.1 X10'3 (0-0.2); BASOPHILS % (AUTO) 1.1 % (0-1); EOSINOPHILS # (AUTO) 0.1 X10'3 (0-0.9); EOSINOPHILS % (AUTO) 1.7 % (0-6); HEMATOCRIT 39.1 % (42.0-52.0); HEMOGLOBIN 13.2 g/dl (14.0-17.9); LYMPHOCYTES # (AUTO) 1.6 X10'3 (1.1-4.8); LYMPHOCYTES % (AUTO) 25.6 % (21-51); MEAN CORPUSCULAR HEMOGLOBIN 28.3 PG (27.0-31.0); MEAN CORPUSCULAR HGB CONC 33.8 g/dL (33.0-36.5); MEAN CORPUSCULAR VOLUME 83.6 FL (78-98); MEAN PLATELET VOLUME 8.4 FL (7.4-10.4); MONOCYTES # (AUTO) 1.3 X10'3 (0-0.9); MONOCYTES % (AUTO) 19.7 % (2-12); NEUTROPHILS # (AUTO) 3.3 X10'3 (1.8-7.7); NEUTROPHILS % (AUTO) 51.9 % (42-75); PLATELET COUNT 485 X10'3 (140-440); RED BLOOD COUNT 4.67 X10'6 (4.70-6.10); RED CELL DISTRIBUTION WIDTH 15.5 % (11.5-14.5); WHITE BLOOD COUNT 6.4 X10'3 (4.5-11.0)
--- NOTE | 2020-11-10 06:08 | NUR ---
Problems reprioritized. Patient report given, questions answered & plan of care reviewed with Megha MG.
[2020-11-10 06:25] LABS: ALANINE AMINOTRANSFERASE 73 U/L (12-78); ALBUMIN 2.9 G/DL (3.4-5.0); ALBUMIN/GLOBULIN RATIO 0.6 (1.1-1.5); ALKALINE PHOSPHATASE 120 IU/L (46-116); ANION GAP 8 (8-16); ASPARTATE AMINO TRANSFERASE 43 U/L (10-37); BILIRUBIN,TOTAL 0.8 MG/DL (0.1-1.0); BLOOD UREA NITROGEN 17 MG/DL (7-18); BUN/CREATININE RATIO 12.7 (5.4-32.0); CALCIUM 8.5 MG/DL (8.5-10.1); CHLORIDE 104 MMOL/L (99-107); CREATININE 1.34 MG/DL (0.60-1.10); GLUCOSE 117 MG/DL (70-104); POTASSIUM 3.5 MMOL/L (3.5-5.1); SODIUM 140 MMOL/L (135-145); TOTAL CARBON DIOXIDE 27.6 MMOL/L (24-32); TOTAL PROTEIN 7.5 G/DL (6.4-8.2); eGFR 53 ML/MIN
--- NOTE | 2020-11-10 06:42 | NUR ---
Problems reprioritized. Patient report given, questions answered & plan of care reviewed with HARITHA Montez. Addendum: 11/10/20 at 0643 by Megha Banks RN Report received from Tc MG, not given.
[2020-11-10 07:00] VITALS: BP_SYST 134; BP_SYST 141; BP_DIAS 60; BP_DIAS 66
[2020-11-10 07:02] LABS: ANISOCYTOSIS 1+; MICROCYTOSIS 1+; PLATELET ESTIMATE INCREASED; TOTAL CELLS COUNTED 100
[2020-11-10] MEDS: K and/or MAG REPLACEMENT MC SCH ×2 (08:00→19:17)
[2020-11-10] MEDS: furosemide 20 MG/2 ML vial IV SCH (08:00)
[2020-11-10] MEDS: lansoprazole 15mg solutab PO SCH (09:08)
[2020-11-10] MEDS: docusate sod 100mg capsule PO SCH ×2 (09:08→19:22)
[2020-11-10] MEDS: tamsulosin 0.4mg capsule PO SCH (09:09)
[2020-11-10] MEDS: metoprolol tartrate 25mg tablet PO SCH ×2 (09:09→19:23)
[2020-11-10] MEDS: heparin, porcine 5000 units/ml vial SQ SCH ×2 (09:10→16:25)
[2020-11-10] MEDS: lactobacillus rhamnosus 10,000 MMU CELLS/CAPSULE PO SCH ×2 (09:10→19:22)
[2020-11-10 11:00] VITALS: BP 154/72
[2020-11-10 18:00] VITALS: BP 150/66
--- NOTE | 2020-11-10 18:19 | NUR ---
Problems reprioritized. Patient report given, questions answered & plan of care reviewed with HARITHA Montez.
[2020-11-10] MEDS: HYDROcodone/acetaminophen 10/325mg tab PO PRN (22:17)
[2020-11-10] MEDS: zolpidem 5mg tablet PO PRN (22:21)
[2020-11-11] VITALS: BP 150/68
[2020-11-11] MEDS: heparin, porcine 5000 units/ml vial SQ SCH ×2 (00:17→07:36)
[2020-11-11] MEDS: HYDROcodone/acetaminophen 10/325mg tab PO PRN (03:47)
[2020-11-11] MEDS: zolpidem 5mg tablet PO PRN (03:47)
[2020-11-11 05:45] LABS: BASOPHILS % (AUTO) 0.8 % (0-1); EOSINOPHILS # (AUTO) 0.1 X10'3 (0-0.9); EOSINOPHILS % (AUTO) 1.8 % (0-6); HEMATOCRIT 38.5 % (42.0-52.0); LYMPHOCYTES # (AUTO) 1.4 X10'3 (1.1-4.8); LYMPHOCYTES % (AUTO) 25.5 % (21-51); MEAN CORPUSCULAR HEMOGLOBIN 28.3 PG (27.0-31.0); MEAN CORPUSCULAR HGB CONC 33.7 g/dL (33.0-36.5); MEAN PLATELET VOLUME 8.2 FL (7.4-10.4); MONOCYTES % (AUTO) 18.1 % (2-12); NEUTROPHILS % (AUTO) 53.8 % (42-75); PLATELET COUNT 489 X10'3 (140-440); RED BLOOD COUNT 4.58 X10'6 (4.70-6.10); RED CELL DISTRIBUTION WIDTH 15.1 % (11.5-14.5); WHITE BLOOD COUNT 5.6 X10'3 (4.5-11.0)
[2020-11-11 06:18] LABS: ALANINE AMINOTRANSFERASE 69 U/L (12-78); ALBUMIN 2.7 G/DL (3.4-5.0); ALBUMIN/GLOBULIN RATIO 0.6 (1.1-1.5); ALKALINE PHOSPHATASE 96 IU/L (46-116); ANION GAP 9 (8-16); ASPARTATE AMINO TRANSFERASE 38 U/L (10-37); BILIRUBIN,TOTAL 0.7 MG/DL (0.1-1.0); BLOOD UREA NITROGEN 16 MG/DL (7-18); BUN/CREATININE RATIO 11.9 (5.4-32.0); CALCIUM 8.7 MG/DL (8.5-10.1); CHLORIDE 103 MMOL/L (99-107); CREATININE 1.35 MG/DL (0.60-1.10); GLUCOSE 128 MG/DL (70-104); POTASSIUM 3.6 MMOL/L (3.5-5.1); SODIUM 140 MMOL/L (135-145); TOTAL CARBON DIOXIDE 28.1 MMOL/L (24-32); TOTAL PROTEIN 7.1 G/DL (6.4-8.2); eGFR 52 ML/MIN
--- NOTE | 2020-11-11 06:35 | NUR ---
Problems reprioritized. Patient report given, questions answered & plan of care reviewed with Isabel MG.
[2020-11-11 07:00] VITALS: BP 142/71
[2020-11-11] MEDS: furosemide 20 MG/2 ML vial IV SCH (07:27)
[2020-11-11] MEDS: lansoprazole 15mg solutab PO SCH (07:31)
[2020-11-11] MEDS: tamsulosin 0.4mg capsule PO SCH (07:31)
[2020-11-11] MEDS: lactobacillus rhamnosus 10,000 MMU CELLS/CAPSULE PO SCH (07:31)
[2020-11-11] MEDS: docusate sod 100mg capsule PO SCH (07:31)
[2020-11-11] MEDS: metoprolol tartrate 25mg tablet PO SCH (07:34)
[2020-11-11 07:40] LABS: TOTAL CELLS COUNTED 100
[2020-11-11 07:41] LABS: PLATELET ESTIMATE INCREASED
[2020-11-11] MEDS: K and/or MAG REPLACEMENT MC SCH (08:00)
[2020-11-11] MEDS ORDERED: HYDR-3972 PO (10:02)
[2020-11-11] MEDS ORDERED: FURO20TA4 PO (10:02)
[2020-11-11 11:00] VITALS: BP 134/67
--- NOTE | 2020-11-11 12:36 | NUR ---
PT evaluated pt for step safety, Dr Lopes came in to see Pt preferring to keep andrea in at this time. dressed inc with 4x4 gauze and silk tape. Dressing materials provided to pt for DC. Pt requested a [employer] ride home at his expense as is unsafe to assist him on the steps leading into home. [employer] aware of pt need and can assist him to amb with his FWW into the home. Pt will be followed by HH/PT and follow up with Dr Lopes. Pt scheduled tile picker at 1400.
== END 2020-11-11 14:10 | disposition home or self-care (01) | DRG 656 ==
LOC: PAS IN 05:45 → SUR 3N 12:15 → ICU 2S 10-27 20:28 → SUR 3N 11-03 11:09
PROVIDERS: ADMIT Urology; ATTEND Urology
PROC: 0TT14ZZ Resection of Left Kidney, Percutaneous Endoscopic Approach (ICD-10-PCS; principal; 2020-10-26 07:22)
PROC: 0WJG0ZZ Inspection of Peritoneal Cavity, Open Approach (ICD-10-PCS; 2020-10-27)
PROC: 03HY32Z Insertion of Monitoring Device into Upper Artery, Percutaneous Approach (ICD-10-PCS; 2020-10-27)
PROC: 5A1945Z Respiratory Ventilation, 24-96 Consecutive Hours (ICD-10-PCS; 2020-10-27)
PROC: 0BH17EZ Insertion of Endotracheal Airway into Trachea, Via Natural or Artificial Opening (ICD-10-PCS; 2020-10-27)
PROC: 0D9670Z Drainage of Stomach with Drainage Device, Via Natural or Artificial Opening (ICD-10-PCS; 2020-11-03)
DX: C64.2 Malignant neoplasm of left kidney, except renal pelvis (principal); E43 Unspecified severe protein-calorie malnutrition; K65.9 Peritonitis, unspecified; J96.00 Acute respiratory failure, unspecified whether with hypoxia or hypercapnia; J98.11 Atelectasis; I50.30 Unspecified diastolic (congestive) heart failure; K56.7 Ileus, unspecified; K59.00 Constipation, unspecified; I95.9 Hypotension, unspecified; Z20.822 Contact with and (suspected) exposure to COVID-19; R00.0 Tachycardia, unspecified; R39.15 Urgency of urination; N40.1 Benign prostatic hyperplasia with lower urinary tract symptoms; E11.9 Type 2 diabetes mellitus without complications; I11.0 Hypertensive heart disease with heart failure; K21.9 Gastro-esophageal reflux disease without esophagitis; Z68.28 Body mass index [BMI] 28.0-28.9, adult; Z88.8 Allergy status to other drugs, medicaments and biological substances; Z79.899 Other long term (current) drug therapy; R50.82 Postprocedural fever
CPT/HCPCS: 36415; 36600; 71045; 71046; 74018; 80048; 80053; 80202; 81001; 82803; 82948; 83036; 83605; 83735; 83880; 84100; 84134; 84145; 84484; 85007; 85018; 85025; 85027; 85610; 85730; 86885; 86900; 86901; 87040; 87070; 87081; 87635; 93005; 93306; 94002; 94003; 94760; 97110; 97116; 97161; 97530; A4215; A4618; A6258; A7000; C1758; C9113; G0378; J0131; J0360; J1100; J1170; J1644; J1885; J1940; J2001; J2175; J2250; J2310; J2405; J2543; J2704; J2765; J3010; J3370; J3475; J3480; J3490; J7030; J7040; J7060; J7120; P9045; Q0164

== ENCOUNTER 2023-06-25 10:35 | Emergency (ER) | payer MEDICARE ==
[~2023-06-25] VITALS: Ht 188 cm; Wt 100.0 kg
[~2023-06-25 10:35] MED LIST changes: -AMLO2.5T5 PO; -BENA20TA10 PO; -CETI10TA18 PO; -CLON1TAB96 PO; +DEXA6TAB PO; +DOCU-368 PO; -DOCUMENT DATE & TIME OF BETA-BLOCKER PO ONE; -ESOM20CA PO; +METF-438 PO; +ROSU20TA73 PO; -cefazolin/dext.iso 2gm/100ml IV ONE; -famotidine 20mg tablet PO ONE; -ringers solution, lacted 1,000 ML IV SCH
[2023-06-25] MEDS: ondansetron 4mg rapidly disintigrating tab PO ONE (11:20)
[2023-06-25] MEDS: HYDROcodone/acetaminophen 5mg/325mg tablet PO ONE (11:21)
[2023-06-25 12:30] VITALS: BP 111/65; PULSE 85; O2SAT 95
[2023-06-25] MEDS: bacitracin ointment unit dose packet TP SCH (14:55)
[2023-06-25 15:14] VITALS: RESP 16
[2023-06-25] MEDS: oxyCODONE IR 5mg (immed. release) tablet PO ONE (15:14)
[2023-06-25] MEDS: TETanus/Pertussis (Acell)/Diphther VAC/PF (Tdap-Adult) 0.5ml syringe IMVAC ONE (15:15)
[2023-06-25 15:33] VITALS: TEMP 97.5
== END 2023-06-25 15:36 | disposition home or self-care (01) ==
LOC: ER 10:36
DX: S70.211A Abrasion, right hip, initial encounter (principal); S89.92XA Unspecified injury of left lower leg, initial encounter; Z88.8 Allergy status to other drugs, medicaments and biological substances; Z91.018 Allergy to other foods; I10 Essential (primary) hypertension; J44.9 Chronic obstructive pulmonary disease, unspecified; N40.0 Benign prostatic hyperplasia without lower urinary tract symptoms; E11.9 Type 2 diabetes mellitus without complications; G89.29 Other chronic pain; M54.9 Dorsalgia, unspecified; Z90.49 Acquired absence of other specified parts of digestive tract; Z85.9 Personal history of malignant neoplasm, unspecified; W01.0XXA Fall on same level from slipping, tripping and stumbling without subsequent striking against object, initial encounter; Y93.89 Activity, other specified; Y92.89 Other specified places as the place of occurrence of the external cause; Y99.8 Other external cause status
CPT/HCPCS: 72192; 73502; 73564; 90471; 90715; 99285

== ENCOUNTER 2024-11-07 08:22 | Inpatient (IN) | payer MEDICARE ==
[~2024-11-07] VITALS: Ht 188 cm; Wt 99.0 kg
[~2024-11-07 08:22] MED LIST changes: -ROSU20TA73 PO; +ROSU20TA98 PO
--- NOTE | 2024-11-07 08:29 | Physician Documentation ---
History of Present Illness ~ Stated Complaint: WEAKNESS Time Seen by MD: 08:24 OK to notify your PCP?: Yes Source: patient, EMS, EMS notes reviewed Mode of Arrival: EMS HPI Chief Complaint: Generalized weakness Caveat: None Independent Historians: Paramedics History of Present Illness: Patient is a 74-year-old man with multiple medical problems who his brought in by paramedics from home. Patient has developed increasing weakness since yesterday. This morning at 2:00 a.m. his was unable to get him up out of his recliner. Patient has had increasing weakness and was unable to walk. Patient tried to use his walker but was too weak. Medics found the patient to be awake alert and tachycardic with a heart rate in the 130s and hypertensive with the blood pressure in the 150s to 160s. Patient was not hypoxic. Patient has an ongoing infection around the perineum and groin for which she is taking Bactroban. Patient denies any chest pain or shortness for breath. Patient denies any fevers. Review of systems: All systems were reviewed and are negative except for what is indicated in the history of present illness. Past Medical History: HTN, HLD, type 2 diabetes, Keturah Rebollar Past Surgical History: Cholecystectomy, left nephrectomy for presumed renal cell carcinoma Social History: , no tobacco use, no alcohol use Medications: Reviewed as documented Nursing Notes Allergies: Reviewed as documented in Nursing Notes Medication Reconciliation Allergies: Coded Allergies: fentanyl (Verified Allergy, Unknown, HALLUCINATIONS, 06/25/23) pollen extracts (Unverified Allergy, Unknown, RUNNY NOSE, 06/25/23) adhesive (Verified Adverse Reaction, Unknown, 06/25/23) cefdinir (Unverified Adverse Reaction, Unknown, DIARRHEA, 06/25/23) Scheduled Glimepiride* (Amaryl*), 1 TAB PO BID, (Reported) Metformin HCl (Metformin HCl), 1 TAB PO BIDWM, (Reported) Metoprolol Succinate (Metoprolol Succinate), 1 TAB PO DAILY, (Reported) Rosuvastatin Calcium (Rosuvastatin Calcium), 1 TAB PO HS, (Reported) Tamsulosin Hcl (Flomax), 1 CAP PO DAILY@0830, (Reported) Discontinued Medications Dexamethasone (Dexamethasone), 1 TAB PO DAILY Discontinued Reason: patient no longer taking Docusate Sodium (Docusate Sodium), 1 CAP PO DAILY, (Reported) Discontinued Reason: patient no longer taking Past Medical History Past Medical History: Hypertension, COPD, BPH, Renal Disease, Diabetes, Chronic Back Pain, *CANCER* Past Surgical History: abdominal surgery, appendectomy, orthopedic surgeries Patient History: Patient reports no known family medical history. Alcohol Use: None Drug Use: none Lives with: Family Lives In: Home Review of Systems All Other Systems at this time: Reviewed and Negative ROS Patient denies any other acute symptoms other than above. All other systems are negative Physical Exam Vital Signs: RN Vital Signs have been reviewed: Yes Pulse Oximetry Reflects: adequate oxygenation Physical Exam General Appearance: No distress, chronically ill-appearing HEENT: Normal OP, moist oral mucosa, PERRL, EOMI Neck: supple, normal ROM, trachea midline Pulmonary: No respiratory distress, CTA, BS equal Cardiac: Tachycardic, regular rhythm, no murmur, rub or gallop, GI: nondistended, soft, nontender, normal bowel sounds, no guarding, no rebound : SKIN BREAKDOWN IN THE PERINEUM AND AROUND THE ANUS AND GLUTEAL CLEFT. NO ERYTHEMA. CIRCUMCISED. Extremities: normal ROM, no swelling, non-tender Skin: SEE ABOVE, dry, warm, no rashes, SEE EXAM ABOVE Neuro: AAOx3, speech is clear, no focal motor weakness Psych: normal affect, good eye contact, no apparent hallucination, normal speech Progress Results/Orders Results/Orders Orders - CAITLIN MILNER MD Culture Blood (11/07/24 08:24) Chest,Single View (11/07/24 08:24) Straight Cath For Urine Sample (11/07/24 08:24) Page Hospitalist (11/07/24 10:19) Fill Out Med Reconciliation (11/07/24 10:19) Completed Orders - CAITLIN MILNER MD Electrocardiogram (11/07/24 08:24) Cbc/Diff (11/07/24 08:24) MG (11/07/24 08:24) Chest,Single View (11/07/24 08:24) Procalcitonin (11/07/24 08:24) Lacticsepsis (11/07/24 08:24) Ringers Solution, Lacted (Lactated Ringe (11/07/24 08:25) Man Diff (11/07/24 08:33) Ringers Solution, Lacted (Lactated Ringe (11/07/24 10:20) Lactic,2hr (11/07/24 10:23) Ua W/Microscopic, Cult If Ind (11/07/24 10:16) CMP (11/07/24 08:33) Ethanol (11/07/24 08:33) Lipid Panel (11/07/24 08:33) Medications Received in ER Medications (Trade) Dose Ordered Sig/Karan Route PRN Reason Start Time Stop Time Status Last Admin Dose Admin (lactated ringers solution) 1,000 ml ONCE ONCE IV 11/07/24 08:25 11/07/24 08:26 DC 11/07/24 08:55 1,000 ML (lactated ringers solution) 1,000 ml ONCE ONCE IV 11/07/24 10:20 11/07/24 10:22 DC 11/07/24 10:24 1,000 ML ([place] 10/325mg tab) 1 tab Q4H PRN PO SEVERE PAIN 7-10 11/07/24 11:20 11/07/24 12:09 1 TAB Vital Signs 11/07/24 11/07/24 11/07/24 11/07/24 08:23 08:31 08:32 10:21 Pulse 105 105 90 Resp 20 20 20 20 B/P (MAP) 148/68 148/68 (94) 153/70 (97) Pulse Ox 94 95 99 O2 Flow Rate 0 0 Laboratory Tests Test 11/07/24 08:33 11/07/24 10:16 11/07/24 11:07 White Blood Count 4.4 L Red Blood Count 4.38 L Hemoglobin 12.8 L Hematocrit 37.8 L Mean Corpuscular Volume 86.5 Mean Corpuscular Hemoglobin 29.3 Mean Corpuscular Hemoglobin Concent 33.9 Red Cell Distribution Width 16.0 H Platelet Count 258 Mean Platelet Volume 8.0 Neutrophils (%) (Auto) 69.8 Lymphocytes (%) (Auto) 14.1 L Monocytes (%) (Auto) 15.4 H Eosinophils (%) (Auto) 0.1 Basophils (%) (Auto) 0.6 Neutrophils # (Auto) 3.1 Lymphocytes # (Auto) 0.6 L Monocytes # (Auto) 0.7 Eosinophils # (Auto) 0.0 Basophils # (Auto) 0.0 CBC Comment Differential Total Cells Counted 100 Neutrophils % (Manual) 68.0 Band Neutrophils % 1.0 Lymphocytes % (Manual) 11.0 L Monocytes % (Manual) 18.0 H Metamyelocytes % 2.0 H Platelet Estimate Normal Red Blood Cell Morphology Normal Basophilic Stippling Sodium Level 136 Potassium Level 3.9 Chloride Level 100 Carbon Dioxide Level 21.2 L Anion Gap 15 Blood Urea Nitrogen 23 H Creatinine 1.45 H Estimated GFR/1.73 m2 48 BUN/Creatinine Ratio 15.9 Glucose Level 325 H Lactic Acid Level 5.1 *H 4.5 *H Calcium Level 8.9 Magnesium Level 1.6 Total Bilirubin 0.4 Aspartate Amino Transf (AST/SGOT) 21 Alanine Aminotransferase (ALT/SGPT) 43 Alkaline Phosphatase 82 Total Protein 8.0 Albumin 3.6 Globulin 4.4 H Albumin/Globulin Ratio 0.8 L Triglycerides Level 115 Cholesterol Level 99 LDL Cholesterol 28 L HDL Cholesterol 56 Cholesterol/HDL Ratio 1.8 Procalcitonin < 0.05 Chemistry Comments Ethyl Alcohol Level < 10 Urine Specimen Description Voided Urine Color Yellow Urine Clarity Clear Urine pH 5.5 Urine Specific [place] 1.025 Urine Protein Negative Urine Glucose (UA) >=1000 H Urine Ketones Trace H Urine Occult Blood Small Urine Nitrite Negative Urine Bilirubin Negative Urine Urobilinogen 0.2 Urine Leukocyte Esterase Negative Urine RBC None seen Urine WBC 0-4 Urine Squamous Epithelial Cells Few Urine Bacteria None seen Urine Fine Granular Casts 0-3 Urine Culture Indicated Not ind Volume Urine Centrifuged 10 ml Urine Comment Microbiology Date/Time Source Procedure Growth Status 11/07/24 08:33 Blood Arm Right Blood Culture - Preliminary NEGATIVE (LESS THAN 24 HOURS) Resulted Medical Decision Making Findings Differential diagnosis includes but is not limited to: Sepsis, pneumonia, urinary tract infection, cellulitis, electrolyte abnormalities, dehydration, acute kidney injury EKG independent interpretation: Performed at 8:26 a.m.. Sinus tachycardia, heart rate 103, normal axis, Q-waves in V1 and V3, nonspecific ST segment Chest x-ray, single view, indication: Weakness Independent interpretation: Lungs are clear, normal mediastinum, normal cardiac silhouette. No acute cardiopulmonary process Laboratory data independent interpretation: CBC: Mild leukopenia with a white blood cell count of 4.4, mild anemia with a hemoglobin of 12.8 CMP: Elevated BUN and creatinine of 23 and 1.45. Serum glucose elevated 325. Patient's creatinine is at baseline. Lactic acid: 5.1 Urinalysis: Procalcitonin: <0.05 Emergency department course/medical decision-making: Patient presents with generalized weakness. Patient has an elevated lactic acid however no infection has been identified. A rash around his perineum does not appear to be secondarily infected. Patient's abdominal exam is unremarkable. Patient was given 1 L of IV LR. A 2 L of LR was given based on the patient's elevated lactic acid. Patient is thought to be dehydrated. However the cause with a lactic acid elevation is unknown. No infection has been identified. Patient's procalcitonin is less than 0.05. Recommend admission for continued hydration. Patient is also hyperglycemic. Consultation/communications: 11:20 a.m.: Case discussed with our nurse practitioner hospitalist Kim. Ramon crabtree consultation for possible admission. Departure Time of Disposition: 11:30 Impression: Primary Impression: Dehydration Additional Impressions: Generalized weakness Unable to ambulate Perineal rash and skin breakdown Lactic acidemia Education Educated: Patient, Family Educated regarding: diagnosis, treatment Signature Scribe Signature: No scribe Attestation: No scribe CAITLIN MILNER MD Nov 07, 2024 08:28
--- NOTE | 2024-11-07 08:32 | ELECTROCARDIOGRAPH REPORT ---
[facility] Test Date: 2024-11-07 Test Time: 08:26:16 Pat Name: ARNAUD BUTLER Department: EMERGENCY ROOM Room: Gender: M [employer] Helper: KEVIN : 1950 Requested By: CAITLIN MILNER Order Number: [id number] Reading MD: Measurements Intervals Ailey Rate: 103 P: 47 ND: 176 QRS: 24 QRSD: 76 T: 12 QT: 321 QTc: 420 Interpretive Statements Sinus tachycardia Borderline T abnormalities, lateral leads Please click the below link to view image of tracing.
[2024-11-07 08:48] LABS: MEAN PLATELET VOLUME 8.0 FL (7.4-10.4); RED CELL DISTRIBUTION WIDTH 16.0 % (11.5-14.5)
--- NOTE | 2024-11-07 08:51 | RADIOLOGY REPORT ---
CHEST RADIOGRAPH Indication: SEPSIS Technique: Single frontal view of the chest was obtained COMPARISON: None FINDINGS: Lines and Tubes: None Lungs: Clear Pleura: No effusion. No pneumothorax. Cardiomediastinal contours: Unremarkable Bones: Unremarkable IMPRESSION: No acute disease.
[2024-11-07] MEDS: ringers solution, lactated 1000ml IV soln IV ONE ×2 (08:55→10:24)
[2024-11-07 09:13] LABS: CREATININE 1.45 MG/DL (0.60-1.10); TOTAL CARBON DIOXIDE 21.2 MMOL/L (24-32); eCRCL 52 ML/MIN; eGFR 48 ML/MIN
[2024-11-07 10:00] LABS: BANDS% (MANUAL) 1.0 % (0-10); LYMPHOCYTES % (MANUAL) 11.0 % (21-51); METAMYLEOCYTES% (MANUAL) 2.0 % (0-0); MONOCYTES % (MANUAL) 18.0 % (2-12); NEUTROPHILS % (MANUAL) 68.0 % (42-75)
[2024-11-07 10:01] LABS: PLATELET ESTIMATE NORMAL
[2024-11-07 10:29] LABS: LEUKOCYTE ESTERASE ,URINE NEGATIVE (Neg); NITRITES, URINE NEGATIVE (Neg); OCCULT BLOOD,URINE SMALL (Neg)
[2024-11-07 10:34] LABS: UA COLLECTION TYPE VOIDED
[2024-11-07 10:35] LABS: FINE GRANULAR CAST 0-3 /LPF (NEGATIVE)
[2024-11-07 10:36] LABS: SQUAMOUS EPITHELIAL CELL,UR FEW /LPF (FEW)
[2024-11-07] MEDS ORDERED: GLIM1TAB57 PO (10:44)
[2024-11-07] MEDS ORDERED: HYDROcodone/acetaminophen 5mg/325mg tablet PO PRN (11:20)
[2024-11-07] MEDS ORDERED: ondansetron/PF 4mg/2ml inj IV PRN (11:20)
[2024-11-07] MEDS ORDERED: magnesium sulf-water 2g/50mL 50 ML IV PRN (11:20)
[2024-11-07] MEDS ORDERED: potassium Cl 40MEQ/1/2NS 520ml 520 ML IV PRN (11:20)
[2024-11-07] MEDS ORDERED: potassium Cl 20 mEq SR tablet PO PRN ×2 (11:20)
[2024-11-07] MEDS ORDERED: magnesium sulf-water 4G/100mL 100 ML IV PRN (11:20)
[2024-11-07] MEDS ORDERED: magnesium hydroxide 30ml (MOM) UD suspension PO PRN (11:20)
[2024-11-07] MEDS ORDERED: DEXTROSE 15 GM of carb/4 tabs (each vial/BOTTLE has 4 tablets) PO PRN ×2 (11:35)
[2024-11-07] MEDS ORDERED: dextrose 50%-water 50ml dispensing syringe IV PRN ×2 (11:35)
[2024-11-07] MEDS ORDERED: glucagon, human recombinant 1mg kit SUBCUT PRN (11:35)
[2024-11-07] MEDS ORDERED: hydrALAZINE 20mg/ml inj. IV PRN (11:40)
[2024-11-07] MEDS: ringers solution, lacted 1,000 ML IV ONE (11:48)
[2024-11-07] MEDS: HYDROcodone/acetaminophen 10/325mg tab PO PRN (12:09)
[2024-11-07] MEDS: PERFLUTREN PROTEIN-A MICROSPHR (Optison) 0.22 MG/ML 3ML VIAL IV ONE (12:20)
[2024-11-07 12:22] LABS: CHOL/HDL RATIO 1.8 (0.00-4.99); ETHANOL < 10 MG/DL (<10); LDL CHOLESTEROL 28 MG/DL (50-100)
[2024-11-07] MEDS: INSULIN LISPRO 100 UNIT/ML INSULN.PEN MULTI-DOSE SQ SCH (12:30)
[2024-11-07] MEDS: levoFLOXACIN-Levaquin 750MG/D5 150 ML IV STA (12:34)
[2024-11-07] MEDS: ringers solution, lacted 1,000 ML IV SCH (12:35)
--- NOTE | 2024-11-07 12:40 | HISTORY AND PHYSICAL ---
History & Physical Providers to CC ~ History of Present Illness Reason for Admit\Complaint: sepsis, cellulitis, JONY, acidosis History of Present Illness Charlie Bang is a 74-year-old male with a past medical history of left RCC s/p left nephrectomy, NIDDM, HLD, HTN, CHF who was brought to the ED via EMS due to acute onset generalized weakness x 2 days. Patient also reports 30 years of chronic b/l groin and perineum rash that he has been getting treated for with his PCP. Patient denies prior RI/CAD, CVA, cardiac arrhythmia, DVT/PE, or GIB. Patient denies chest pain, palpitations, shortness of breath, abdominal pain, n/v/d, fever, chills, dysuria. Initial diagnostic findings were notable for sinus tachycardia in 100s, elevated lactic acid at 5.1mmol/L, bicarb 21.2mmol/L, anion gap>12, clinical signs of dehydration. Pertinent negative findings are procal negative, CXR negative, UA negative UTI. Patient is to be admitted for further workups and treatment. Allergies: Coded Allergies: fentanyl (Verified Allergy, Unknown, HALLUCINATIONS, 06/25/23) pollen extracts (Unverified Allergy, Unknown, RUNNY NOSE, 06/25/23) adhesive (Verified Adverse Reaction, Unknown, 06/25/23) cefdinir (Unverified Adverse Reaction, Unknown, DIARRHEA, 06/25/23) Home Medications Home Medications Active Reported Amaryl* (Glimepiride) 1 Mg Tablet 1 Tab PO BID 30 Days Metoprolol Succinate 50 Mg Tab.sr.24h 1 Tab PO DAILY Metformin HCl 1,000 Mg Tablet 1 Tab PO BIDWM Rosuvastatin Calcium 20 Mg Tablet 1 Tab PO HS Flomax (Tamsulosin HCl) 0.4 Mg Cap.sr.24h 1 Cap PO DAILY@0830 Past Medical History Past Medical History NIDDM Hypertension CHF HLD Hyperlipidemia Left RCC Past Surgical History Surgical History Comment Cystectomy Left nephrectomy Family History Family History: Patient reports no known family medical history. Past Social History Social History Comment Alcohol: Denies Tobacco: Denies Illicit drug use: Denies Living situation: Lives at home with spouse ROS ROS Other than positives in HPI, all 14 review of systems are negative Exam Vitals: Vital Signs Date Time Temp Pulse Resp B/P (MAP) Pulse Ox O2 Delivery O2 Flow Rate FiO2 8/25/25 12:09 17 11/07/24 11:47 85 146/76 (99) 98 11/07/24 10:21 0 General: Generalized weakness, A&Ox 3, NAD HEENT: Normocephalic, PERRLA Neck: Supple, trachea midline, no JVD Chest: Clear to auscultation bilaterally Cardiovascular: RRR, S1&S2 Abdomen: Soft and nontender Extremities: No cyanosis/clubbing/or edema Central Nervous System: CN II-XII intact, no focal deficits Musculoskeletal: No paraspinal muscle tenderness, no muscle spasm Skin: Erythema, ulcerations with purulent drainage b/l groins Diagnostic Data Last Recorded Lab Results: 11/07/24 0833 11/07/24 0833 Additional Plan 74-year-old male with a past medical history of left RCC s/p left nephrectomy, NIDDM, HLD, HTN, CHF who was brought to the ED via EMS due to acute onset generalized weakness x 2 days. Patient also reports 30 years of chronic b/l groin and perineum rash that he has been getting treated for with his PCP. Assessment & Plan Sepsis 2/2 cellulitis, b/l groins Cellulitis Lactic acidosis Metabolic acidosis Dehydration Prerenal JONY 2/2 dehydration/vasomotor nephropathy -lactic acid 5.1, bicarb 21, anion gap>12; procal negative, CXR negative, UA negative UTI. -fluid resuscitation, continuous LR, vanco/cefepime/Flagyl wound care, follow CT Chronic diastolic heart failure NIDDM Hyperglycemia HTN HLD Left RCC s/p left nephrectomy BPHKk4 -CXR negative, no clinical signs of fluid overload, A1c8.6, start hyper/hypoglycemic protocol, continue home statin, Flomax, metoprolol -optimize GDMT as tolerated, follow lipid panel DVT/VTE prophylaxis: heparin Code status: Full code I spent a total of 35 minutes discussing Advanced Care Planning measures with the patient. Advance care planning: Discussed with patient the importance of advance care planning in case of emergent situation. We discussed various resuscitative measures/ ACP with the patient at the time of admission. Patient voiced understanding and patient has decided on a full code status. Date of Service: Nov 07, 2024 Billing Provider: DERIK العلي RING MAKER Common Visit Codes: [id number] INP/OBS CARE (HIGH) Secondary Visit Codes: [id number] CARE PLAN 30 MINUTES DERIK العلي RING MAKER Nov 07, 2024 12:40
[2024-11-07 13:36] VITALS: BP 139/66; PULSE 92; RESP 14; TEMP 98.7; O2SAT 96
[2024-11-07 13:42] LABS: CREATININE 1.07 MG/DL (0.60-1.10); TOTAL CARBON DIOXIDE 24.7 MMOL/L (24-32); eCRCL 70 ML/MIN; eGFR 68 ML/MIN
[2024-11-07] MEDS: VANCOMYCIN 2GM/400ML H20 (PEG) 400 ML IV ONE (14:44)
[2024-11-07] MEDS: metoprolol succinate 25mg (24-HOUR) SR. Tablet PO ONE (15:16)
[2024-11-07] MEDS: metroNIDAZOLE-Flagyl 500mg/NS 100 ML IV SCH (16:31)
--- NOTE | 2024-11-07 16:37 | RADIOLOGY REPORT ---
EXAM: CT CT PELVIS INDICATION: groin, perineum cellulitis, JONY TECHNIQUE: Axial images of pelvis without contrast have been obtained along with coronal and sagittal reformatted images. All CT scans at this facility use dose modulation, iterative reconstruction, and /or weight based dosing when appropriate to reduce radiation dose to as low as reasonably achievable. COMPARISON: CT CT PELVIS on DOS: 06/25/23 FINDINGS: BONES: No CT evidence of an acute fracture or aggressive osseous lesion. MUSCLES: No abnormal attenuation. JOINT SPACES: No joint effusion. TENDONS/LIGAMENTS: Intact. OTHER: Fat containing bilateral inguinal hernias. [id number] stool burden. Multiple bowel loops adhere to the lower left anterior abdominal wall. Postsurgical changes possibly related to prior omar gical intervention along the left anterior abdominal wall. No abnormal abscess/drainable fluid collec tion. Possible scrotal wall thickening. No soft tissue emphysema along the perineum. IMPRESSION: 1. No abnormal abscess/drainable fluid collection. Possible scrotal wall thickening. No soft tissue emphysema along the perineum.
[2024-11-07 18:00] VITALS: BP_SYST 117; BP_SYST 129; BP_DIAS 47; BP_DIAS 67; PULSE 84; PULSE 90; RESP 19; RESP 24; TEMP 97.2; TEMP 98; O2SAT 96
--- NOTE | 2024-11-07 18:30 | CARDIOLOGY REPORT ---
APPROVED REPORT EXAM: Comprehensive 2D, Doppler, and color-flow Echocardiogram. Patient Location: [address] Heart Rate: 80's bpm Rhythm: SINUS Indications CONGESTIVE HEART FAILURE WEAKNESS HYPERTENSION Undercoater: Madisyn GAONA MD Previous echo: [facility] 10-26-22 EF 75-8%, trMR, trTR, modLVH 2D Dimensions IVSd 1.3 (0.7-1.1cm) LVDd 4.9 cm PWd 1.3 (0.7-1.1cm) IVSs 1.8 (0.8-1.2cm) LVDs 2.3 (2.5-4.0cm) PWs 1.8 (0.8-1.2cm) LVOT Diameter 2.13 (1.8-2.4cm) LVEF(%) 84.8 (>50%) FS (%) 54.1 % SV 97.7 ml CO 7.9 L/min M-Mode Dimensions Aortic Root 3.22 (2.2-3.7cm) Aortic Valve AoV Peak Sachin. 183.5 cm/s AoV VTI 25.2 cm AO Peak GR. 13.5 mmHg AO Mean GR. 9 mmHg LVOT VTI 26.53 cm LVOT Peak Sachin. 134.5 cm/s CHELI(VTI)/BSA 3.75 cm2/m2 CHELI (VTI) 3.75 cm2 Mitral Valve MV E Velocity 84.6 cm/s MV Peak Gr. 5 mmHg MV DECEL TIME 280 ms MV A Velocity 114.2 cm/s MV PHT 64 ms E/A Ratio 0.7 MVA (PHT) 3.44 cm2 MV EQii926.9 cm/s LEFT VENTRICLE Normal LV size and function. Mild concentric hypertrophy. Increased LV velocity of 180 cm/s. Peak LV gradients of 13 mmHg at rest. Gradient increases to 21.47 mmHg with Valsalva maneuver. Velocity incre ase throughout is due to hyperdynamic LV function. LVEF is 80%. RIGHT VENTRICLE RV appears normal in size and function. ATRIA The left atrium size appears normal. AORTIC VALVE Trileaflet AV appears mildly sclerotic without stenosis. No insufficiency. MITRAL VALVE Mild MV annular calcification without stenosis. Trace regurgitation. TRICUSPID VALVE TV appears structurally normal with trace regurgitation. PULMONIC VALVE Normal PV without stenosis, physiologic insufficiency. GREAT VESSELS The aortic root is normal in size. PERICARDIUM Trivial pericardial effusion without hemodynamic compromise. Other Information Study Quality: Technically Difficult due to poor imaging windows and patient positioning Conclusion Normal LV size and function. Mild concentric hypertrophy. Increased LV velocity of 180 cm/s. Peak L V gradients of 13 mmHg at rest. Gradient increases to 21.47 mmHg with Valsalva maneuver. Velocity in crease throughout is due to hyperdynamic LV function. LVEF is 80%. RV appears normal in size and function. The left atrium size appears normal. Trileaflet AV appears mildly sclerotic without stenosis. No insufficiency. Mild MV annular calcification without stenosis. Trace regurgitation. TV appears structurally normal with trace regurgitation. Trivial pericardial effusion without hemodynamic compromise.
[2024-11-07] MEDS: K and/or MAG REPLACEMENT MC SCH (20:00)
[2024-11-07] MEDS ORDERED: heparin, porcine 5000 units/ml vial SQ SCH (20:00)
[2024-11-07] MEDS: heparin, porcine 5000 units/ml vial SQ SCH (20:10)
[2024-11-07] MEDS: LidoCAINE 2% Topical Jelly 11mL syringe (UROJET) TOP ONE (20:10)
[2024-11-07] MEDS: cefepime 1GM in D5W 50mL 50 ML IV SCH (20:10)
[2024-11-07] MEDS: docusate sod 100mg capsule PO SCH (20:10)
[2024-11-07 22:00] VITALS: BP 129/47; PULSE 90; RESP 19; TEMP 98; O2SAT 96
[2024-11-08] MEDS: vancomycin/NS 1 GM ADD-VANTAGE 250 ML IV SCH (01:57)
[2024-11-08 05:36] LABS: MEAN PLATELET VOLUME 8.1 FL (7.4-10.4); RED CELL DISTRIBUTION WIDTH 15.9 % (11.5-14.5)
[2024-11-08 05:58] LABS: CREATININE 1.13 MG/DL (0.60-1.10); TOTAL CARBON DIOXIDE 25.3 MMOL/L (24-32); eCRCL 67 ML/MIN; eGFR 63 ML/MIN
[2024-11-08 06:00] VITALS: BP 129/33; PULSE 84; RESP 20; TEMP 98.4; O2SAT 96
[2024-11-08 07:23] LABS: NEUTROPHILS % (MANUAL) 54.0 % (42-75)
[2024-11-08 07:24] LABS: LYMPHOCYTES % (MANUAL) 25.0 % (21-51); MONOCYTES % (MANUAL) 21.0 % (2-12)
[2024-11-08 07:26] LABS: PLATELET ESTIMATE NORMAL
[2024-11-08] MEDS: metoprolol succinate 25mg (24-HOUR) SR. Tablet PO SCH (07:45)
[2024-11-08] MEDS: EMPAGLIFLOZIN 10 MG TABLET PO SCH (07:45)
[2024-11-08] MEDS ORDERED: levoFLOXACIN-Levaquin 750MG/D5 150 ML IV SCH (08:00)
[2024-11-08] MEDS: mag hydrox/Alum hydrox/simeth 30ml oral suspension PO PRN (08:45)
[2024-11-08 10:00] VITALS: BP 140/57; PULSE 85; RESP 16; TEMP 97.6; O2SAT 94
[2024-11-08] MEDS ORDERED: lactose-reduced food (Ensure High Protein) 237ml bottle PO SCH (13:00)
[2024-11-08] MEDS: magnesium Cl slow-release 64mg tablet PO PRN (13:26)
[2024-11-08 18:00] VITALS: BP 145/60; PULSE 76; RESP 18; TEMP 97.3; O2SAT 93
[2024-11-08] MEDS: lactose-reduced food (Ensure High Protein) 237ml bottle PO SCH (18:00)
--- NOTE | 2024-11-08 18:27 | PROGRESS NOTE ---
Daily Progress Note Providers to CC ~ Antibiotic Timeout Antibiotic Ordered?: Yes Subjective Patient is seen and examined in presence of nursing staff and patient's . All labs, diagnostic workup and discharge plan discussed with patient and family members in detail before her discharge. All questions and queries answered to the best of my professional medical knowledge. I heard patient's concerns and address appropriately. feels that patient needs COVID testing also and she wants to make sure that patient's all medical conditions are in the chart particularly History of Shanta-Shanta disease, History of prostate cancer on Lupron hormonal therapy currentlyHistory of COPD Objective Vital Signs Date Time Temp Pulse Resp B/P (MAP) Pulse Ox O2 Delivery O2 Flow Rate FiO2 11/08/24 10:00 97.6 85 16 140/57 (84) 94 Room Air 11/08/24 08:00 0.0 Result Diagram: 11/08/2443211/08/24432 General-patient not in any acute distress, alert awake oriented, chronically ill-appearing HEENT-atraumatic normocephalic, neck supple without elevated JVD, no thyromegaly or carotid bruit. No lymphadenopathy bilaterally. Eyes-no icterus or pallor seen in eyes Chest-clear to auscultation bilaterally, breathing nonlabored no tachypnea, no wheezing, no crepitation, no crackles. Heart-S1-S2 normal, regular heart rate no murmur Abdomen bowel sounds positive on auscultation, soft nondistended nontender no guarding, no rigidity Skin - patient has bilateral groin rash in sacral decubitus. Neurology-grossly intact, nonfocal alert awake oriented Extremity- no pedal edema able to move all 4 extremities Psychiatry - patient is not confused or agitated cooperated during physical examination Problem\Assessment\Plan Additional Plan 74-year-old male with a past medical history of left RCC s/p left nephrectomy, NIDDM, HLD, HTN, CHF who was brought to the ED via EMS due to acute onset generalized weakness x 2 days. Patient also reports 30 years of chronic b/l groin and perineum rash that he has been getting treated for with his PCP. On October 30, 2022 discharge history-This is a 72-year-old history of left nephrectomy secondary to renal cell carcinoma, prostate cancer, hyperlipidemia, hypertension, diabetes mellitus Shanta-Shanta disease who presents to [facility] for confusion/weakness. Patient was found to be COVID-19 positive Assessment & Plan Sepsis 2/2 cellulitis, b/l groins Cellulitis Lactic acidosis Metabolic acidosis Dehydration Prerenal JONY 2/2 dehydration/vasomotor nephropathy -lactic acid 5.1, bicarb 21, anion gap>12; procal negative, CXR negative, UA negative UTI. -fluid resuscitation, continuous LR, vanco/cefepime/Flagyl wound care, follow CT Patient's diabetes is poorly controlled hemoglobin A1c 8.6 which can increase patient's risk for decline in the renal function and increase risk for infection . We will continue wound care for groin rash and sacral erythema . Chronic diastolic heart failure Hyperglycemia HTN HLD Left RCC s/p left nephrectomy BPHKk4 -CXR negative, no clinical signs of fluid overload, A1c8.6, start hyper/hypoglycemic protocol, continue home statin, Flomax, metoprolol -optimize GDMT as tolerated, follow lipid panel DVT/VTE prophylaxis: heparin Code status: Full code Patient is seen and examined in presence of nursing staff and patient's . All labs, diagnostic workup and discharge plan discussed with patient and . All questions and queries answered to the best of my professional medical knowledge. I heard patient's concerns and address appropriately. Patient's current condition is guarded we will continue to follow patient in a.m. Date of Service: Nov 08, 2024 Billing Provider: ELSA JOSEPH MD Common Visit Codes: [id number] INP/OBS CARE(HIGH) ELSA JOSEPH MD Nov 08, 2024 18:27
[2024-11-08 18:30] VITALS: BP 145/60; PULSE 76; RESP 18; TEMP 97.3; O2SAT 93
[2024-11-08 22:00] VITALS: BP 144/64; PULSE 92; RESP 18; TEMP 97.5; O2SAT 94
[2024-11-09] MEDS: VANCOMYCIN LEVEL IV ONE (01:30)
[2024-11-09 05:01] LABS: MEAN PLATELET VOLUME 8.3 FL (7.4-10.4); RED CELL DISTRIBUTION WIDTH 15.6 % (11.5-14.5)
[2024-11-09 05:55] LABS: CREATININE 1.08 MG/DL (0.60-1.10); TOTAL CARBON DIOXIDE 25.3 MMOL/L (24-32); eCRCL 70 ML/MIN; eGFR 67 ML/MIN
[2024-11-09 06:00] VITALS: BP_SYST 125; BP_SYST 149; BP_DIAS 63; BP_DIAS 67; PULSE 72; PULSE 94; RESP 15; RESP 19; TEMP 97.7; O2SAT 94; O2SAT 97
[2024-11-09 10:00] VITALS: BP 132/71; PULSE 92; RESP 18; TEMP 98.2; O2SAT 93
[2024-11-09] MEDS: fluconazole-Diflucan 200mg/NS 100 ML IV ONE (12:29)
[2024-11-09 18:00] VITALS: BP 129/56; PULSE 71; RESP 16; O2SAT 94
[2024-11-09] MEDS: HYDROmorphone inj. 0.5 MG/0.5 ML DISP.SYRIN IV PRN (18:36)
[2024-11-09 18:42] VITALS: RESP 16; O2SAT 98
--- NOTE | 2024-11-09 20:14 | PROGRESS NOTE ---
Daily Progress Note Providers to CC ~ Antibiotic Timeout Antibiotic Ordered?: Yes Subjective The patient is has a fair amount of erythema in his perineum with a large blistering consistent with his bolus pemphigoid- the is wondering why the patient's blood sugars prior to lunch was 215 why that has so high but now further reviewing the chart the patient's hemoglobin A1c is 8.6 that is the sugars on average are has been in the 200s Objective Vital Signs Date Time Temp Pulse Resp B/P (MAP) Pulse Ox O2 Delivery O2 Flow Rate FiO2 11/09/24 18:42 16 98 Room Air 0.0 11/09/24 18:00 71 129/56 (80) 11/09/24 10:00 98.2 Result Diagram: 11/09/24 0436 11/09/24 0436 Gen. No acute distress alert and oriented 4 Lungs clear to ascultation bilaterally, no wheezes rales or rhonchi appreciated Heart normal sinus rhythm no murmurs rubs or clicks noted Abdomen soft nontender bowel sounds are normoactive Lower extremities no clubbing cyanosis, nor edema appreciated bilaterally Skin moderate erythema of the perineum and scrotal sac as well as large multiple blisters in the perineum as well Problem\Assessment\Plan Additional Plan 74-year-old male with a past medical history of left RCC s/p left nephrectomy, NIDDM, HLD, HTN, CHF who was brought to the ED via EMS due to acute onset generalized weakness x 2 days. Patient also reports 30 years of chronic b/l groin and perineum rash that he has been getting treated for with his PCP. On October 30, 2022 discharge history-This is a 72-year-old history of left nephrectomy secondary to renal cell carcinoma, prostate cancer, hyperlipidemia, hypertension, diabetes mellitus Shanta-Shanta disease who presents to [facility] for confusion/weakness. Patient was found to be COVID-19 positive Assessment & Plan Sepsis 2/2 cellulitis, b/l groins Cellulitis Bullous pemphigoid Lactic acidosis Metabolic acidosis Dehydration Prerenal JONY 2/2 dehydration/possible vasomotor nephropathy -lactic acid 5.1, bicarb 21, anion gap>12; procal negative, CXR negative, UA negative UTI. -fluid resuscitation, continuous LR, vanco/cefepime/Flagyl wound care, no abscess was seen on CT scan Chronic diastolic heart failure Tob-xybginc-krpbyowmx diabetes mellitus HTN HLD Left RCC s/p left nephrectomy BPH -CXR negative, no clinical signs of fluid overload, A1c8.6, start hyper/hypoglycemic protocol, continue home statin, Flomax, metoprolol -optimize GDMT as tolerated, follow lipid panel And a hyper and hypoglycemic protocol added Lantus and postprandial insulin as well DVT/VTE prophylaxis: heparin Code status: Full code Patient is seen and examined in presence of nursing staff and patient's . All labs, diagnostic workup and discharge plan discussed with patient and . All questions and queries answered to the best of my professional medical knowledge. I heard patient's concerns and address appropriately. Patient's current condition is guarded we will continue to follow patient in a.m. Date of Service: Nov 09, 2024 Billing Provider: JAIME HOLDER DO Common Visit Codes: [id number] INP/OBS CARE(HIGH) JAIME HOLDER DO Nov 09, 2024 20:14
[2024-11-09] MEDS: insulin glargine (Lantus) pen - multi-dose SQ SCH (21:45)
[2024-11-09 22:00] VITALS: BP 146/58; PULSE 78; RESP 16; TEMP 97.7; O2SAT 96
[2024-11-10 06:00] VITALS: BP 117/54; PULSE 59; RESP 16; TEMP 97.5; O2SAT 96
[2024-11-10 06:24] LABS: MEAN PLATELET VOLUME 8.3 FL (7.4-10.4); RED CELL DISTRIBUTION WIDTH 15.8 % (11.5-14.5)
[2024-11-10 06:35] LABS: CREATININE 0.92 MG/DL (0.60-1.10); TOTAL CARBON DIOXIDE 27.8 MMOL/L (24-32); eCRCL 82 ML/MIN; eGFR 80 ML/MIN
[2024-11-10] MEDS: fluconazole-Diflucan 200mg/NS 100 ML IV SCH (08:31)
[2024-11-10] MEDS: INSULIN LISPRO 100 UNIT/ML INSULN.PEN MULTI-DOSE SQ SCH (09:00)
[2024-11-10] MEDS ORDERED: HYDROmorphone inj. 0.5 MG/0.5 ML DISP.SYRIN IV PRN (09:45)
[2024-11-10 10:00] VITALS: BP 162/66; PULSE 89; RESP 18; TEMP 97.5; O2SAT 94
[2024-11-10 18:30] VITALS: BP 137/61; PULSE 71; RESP 15; TEMP 97.7; O2SAT 93
--- NOTE | 2024-11-10 19:29 | PROGRESS NOTE ---
Daily Progress Note Providers to CC ~ Antibiotic Timeout Antibiotic Ordered?: Yes Subjective The patient remains in significant pain to the point where I changed his [place] to Percocet and increased his IV Dilaudid dosage- the patient's blood sugars are under better control Objective Vital Signs Date Time Temp Pulse Resp B/P (MAP) Pulse Ox O2 Delivery O2 Flow Rate FiO2 11/10/24 18:30 97.7 71 15 137/61 (86) 93 Room Air 11/10/24 08:00 0.0 Result Diagram: 11/10/24 0503 11/10/24 0503 Gen. No acute distress alert and oriented 4 Lungs clear to ascultation bilaterally, no wheezes rales or rhonchi appreciated Heart normal sinus rhythm no murmurs rubs or clicks noted Abdomen soft nontender bowel sounds are normoactive Lower extremities no clubbing cyanosis, nor edema appreciated bilaterally Skin moderate erythema of the perineum and scrotal sac as well as large multiple blisters in the perineum as well Problem\Assessment\Plan Additional Plan 74-year-old male with a past medical history of left RCC s/p left nephrectomy, NIDDM, HLD, HTN, CHF who was brought to the ED via EMS due to acute onset generalized weakness x 2 days. Patient also reports 30 years of chronic b/l groin and perineum rash that he has been getting treated for with his PCP. On October 30, 2022 discharge history-This is a 72-year-old history of left nephrectomy secondary to renal cell carcinoma, prostate cancer, hyperlipidemia, hypertension, diabetes mellitus Shanta-Shanta disease who [facility]ness. Patient was found to be COVID-19 positive Assessment & Plan Sepsis 2/2 cellulitis, b/l groins Cellulitis Bullous pemphigoid Lactic acidosis Metabolic acidosis Dehydration Prerenal JONY 2/2 dehydration/possible vasomotor nephropathy -lactic acid 5.1, bicarb 21, anion gap>12; procal negative, CXR negative, UA negative UTI. -fluid resuscitation, continuous LR, vanco/cefepime/Flagyl wound care, no abscess was seen on CT scan 11/10 improving Chronic diastolic heart failure Ysa-lkksvgg-mbjtuvfgu diabetes mellitus HTN HLD Left RCC s/p left nephrectomy BPH -CXR negative, no clinical signs of fluid overload, A1c8.6, start hyper/hypoglycemic protocol, continue home statin, Flomax, metoprolol -optimize GDMT as tolerated, follow lipid panel And a hyper and hypoglycemic protocol added Lantus and postprandial insulin as well 11/10 blood sugar control was significantly improved today DVT/VTE prophylaxis: heparin Code status: Full code Disposition: Patient remains significantly weak and is requiring significant assitance with ambulation. Case management is working on rehab placement Date of Service: Nov 10, 2024 Billing Provider: JAIME HOLDER DO Common Visit Codes: [id number] INP/OBS CARE(HIGH) JAIME HOLDER DO Nov 10, 2024 19:29
[2024-11-10 22:00] VITALS: BP 164/57; PULSE 90; RESP 17; TEMP 97.8; O2SAT 92
[2024-11-11 01:24] VITALS: BP 142/87; PULSE 93; RESP 15; TEMP 98.2; O2SAT 95
[2024-11-11 05:00] VITALS: BP 167/75; PULSE 98; RESP 16; TEMP 98.2; O2SAT 94
[2024-11-11 05:33] LABS: MEAN PLATELET VOLUME 8.3 FL (7.4-10.4); RED CELL DISTRIBUTION WIDTH 15.6 % (11.5-14.5)
[2024-11-11 06:07] LABS: CREATININE 1.12 MG/DL (0.60-1.10); TOTAL CARBON DIOXIDE 26.8 MMOL/L (24-32); eCRCL 67 ML/MIN; eGFR 64 ML/MIN
[2024-11-11 06:38] LABS: BANDS% (MANUAL) 1.0 % (0-10); LYMPHOCYTES % (MANUAL) 32.0 % (21-51); METAMYLEOCYTES% (MANUAL) 1.0 % (0-0); MONOCYTES % (MANUAL) 7.0 % (2-12); NEUTROPHILS % (MANUAL) 58.0 % (42-75); REACTIVE LYMPHOCYTES % 1.0 % (0-0)
[2024-11-11 06:39] LABS: GIANT PLATELET FEW; LARGE PLATELETS FEW; PLATELET ESTIMATE NORMAL
[2024-11-11 10:00] VITALS: BP 136/64; PULSE 102; RESP 18; TEMP 97.7; O2SAT 95
[2024-11-11 18:00] VITALS: BP 148/61; PULSE 91; RESP 16; TEMP 98.9; O2SAT 90
--- NOTE | 2024-11-11 20:14 | PROGRESS NOTE ---
Daily Progress Note Providers to CC ~ Antibiotic Timeout Antibiotic Ordered?: Yes Subjective The patient is scrotal erythema has improved significantly today, the patient is requiring rehab however initially he was having loose stools however this has resolved and we were considering placing a rectal tube however the patient did not require a rectal tube as his diarrhea had resolved prior to who being placed. Objective Vital Signs Date Time Temp Pulse Resp B/P (MAP) Pulse Ox O2 Delivery O2 Flow Rate FiO2 11/11/24 18:00 98.9 91 16 148/61 (90) 90 Room Air 11/11/24 08:00 0.0 Result Diagram: 11/11/2444811/11/24448 Gen. No acute distress alert and oriented 4 Lungs clear to ascultation bilaterally, no wheezes rales or rhonchi appreciated Heart normal sinus rhythm no murmurs rubs or clicks noted Abdomen soft nontender bowel sounds are normoactive Lower extremities no clubbing cyanosis, nor edema appreciated bilaterally Skin mild erythema of the perineum and scrotal sac as well as large multiple blisters in the perineum as well Problem\Assessment\Plan Additional Plan 74-year-old male with a past medical history of left RCC s/p left nephrectomy, NIDDM, HLD, HTN, CHF who was brought to the ED via EMS due to acute onset generalized weakness x 2 days. Patient also reports 30 years of chronic b/l groin and perineum rash that he has been getting treated for with his PCP. On October 30, 2022 discharge history-This is a 72-year-old history of left nephrectomy secondary to renal cell carcinoma, prostate cancer, hyperlipidemia, hypertension, diabetes mellitus Shanta-Shanta disease who presents to [facility] for confusion/weakness. Patient was found to be COVID-19 positive Assessment & Plan Sepsis 2/2 cellulitis, b/l groins Cellulitis Bullous pemphigoid Lactic acidosis Metabolic acidosis Dehydration Prerenal JONY 2/2 dehydration/possible vasomotor nephropathy -lactic acid 5.1, bicarb 21, anion gap>12; procal negative, CXR negative, UA negative UTI. -fluid resuscitation, continuous LR, vanco/cefepime/Flagyl wound care, no abscess was seen on CT scan 11/10 improving 11/11 cellulitis is significantly improved today, renal function slightly worse but significantly improved from that of admission status Chronic diastolic heart failure Mfm-mdcqcoi-frkqlxezm diabetes mellitus HTN HLD Left RCC s/p left nephrectomy BPH -CXR negative, no clinical signs of fluid overload, A1c8.6, start hyper/hypoglycemic protocol, continue home statin, Flomax, metoprolol -optimize GDMT as tolerated, follow lipid panel And a hyper and hypoglycemic protocol added Lantus and postprandial insulin as well 11/10 blood sugar control was significantly improved today 11/11 blood sugars are elevated postprandial increased postprandial insulin from 4-7 units DVT/VTE prophylaxis: heparin Code status: Full code Disposition: Patient remains significantly weak and is requiring significant assitance with ambulation. Case management is working on rehab placement Date of Service: Nov 11, 2024 Billing Provider: JAIME HOLDER DO Common Visit Codes: [id number] INP/OBS CARE(HIGH) JAIME HOLDER DO Nov 11, 2024 20:14
[2024-11-11 22:00] VITALS: BP 156/65; PULSE 91; RESP 16; TEMP 97.7; O2SAT 93
[2024-11-12] VITALS (7 sets, daily range): BP systolic 145–168; BP diastolic 56–72; PULSE 78–96; RESP 14–20; TEMP 97.1–99.6; O2SAT 93–98
[2024-11-12 05:58] LABS: MEAN PLATELET VOLUME 8.2 FL (7.4-10.4); RED CELL DISTRIBUTION WIDTH 15.7 % (11.5-14.5)
[2024-11-12 06:12] LABS: CREATININE 0.98 MG/DL (0.60-1.10); TOTAL CARBON DIOXIDE 27.3 MMOL/L (24-32); eCRCL 77 ML/MIN; eGFR 75 ML/MIN
[2024-11-12] MEDS: INSULIN LISPRO 100 UNIT/ML INSULN.PEN MULTI-DOSE SQ SCH ×3 (07:50→13:09)
--- NOTE | 2024-11-12 17:38 | PROGRESS NOTE ---
Daily Progress Note Providers to CC ~ Antibiotic Timeout Antibiotic Ordered?: Yes Subjective The patient's blood sugars up trended today the patient's informs me that he received both pitting and I screen on his tray aneurysm receiving potatoes and other high carb items. I have modified his insulin regimen and increased his PC insulin from 7-12 units and Lantus from 5 to 8 units Objective Vital Signs Date Time Temp Pulse Resp B/P (MAP) Pulse Ox O2 Delivery O2 Flow Rate FiO2 11/12/24 11:59 97.1 89 16 157/69 (98) 93 Room Air 11/12/24 08:00 0.0 Result Diagram: 11/12/2445211/12/24452 Gen. No acute distress alert and oriented 4 Lungs clear to ascultation bilaterally, no wheezes rales or rhonchi appreciated Heart normal sinus rhythm no murmurs rubs or clicks noted Abdomen soft nontender bowel sounds are normoactive Lower extremities no clubbing cyanosis, nor edema appreciated bilaterally Skin mild erythema of the perineum and scrotal sac as well as large multiple blisters in the perineum as well Problem\Assessment\Plan Additional Plan 74-year-old male with a past medical history of left RCC s/p left nephrectomy, NIDDM, HLD, HTN, CHF who was brought to the ED via EMS due to acute onset generalized weakness x 2 days. Patient also reports 30 years of chronic b/l groin and perineum rash that he has been getting treated for with his PCP. On October 30, 2022 discharge history-This is a 72-year-old history of left nephrectomy secondary to renal cell carcinoma, prostate cancer, hyperlipidemia, hypertension, diabetes mellitus Shanta-Shanta disease who presents to [facility] for confusion/weakness. Patient was found to be COVID-19 positive Assessment & Plan Sepsis 2/2 cellulitis, b/l groins Cellulitis Bullous pemphigoid Lactic acidosis Metabolic acidosis Dehydration Prerenal JONY 2/2 dehydration/possible vasomotor nephropathy -lactic acid 5.1, bicarb 21, anion gap>12; procal negative, CXR negative, UA negative UTI. -fluid resuscitation, continuous LR, vanco/cefepime/Flagyl wound care, no abscess was seen on CT scan 11/10 improving 11/11 cellulitis is significantly improved today, renal function slightly worse but significantly improved from that of admission status 11/12 renal function is improving, cellulitis is stable Chronic diastolic heart failure Jhe-lzehbpc-aysdgcbrm diabetes mellitus HTN HLD Left RCC s/p left nephrectomy BPH -CXR negative, no clinical signs of fluid overload, A1c8.6, start hyper/hypoglycemic protocol, continue home statin, Flomax, metoprolol -optimize GDMT as tolerated, follow lipid panel And a hyper and hypoglycemic protocol added Lantus and postprandial insulin as well 11/10 blood sugar control was significantly improved today 11/11 blood sugars are elevated postprandial increased postprandial insulin from 4-7 units 11/12 blood sugars are up trending I increased Lantus to 8 units and PC insulin to 12 units the informs me the patient is receiving multiple high carb items on his tray including putting an ice cream on one tray and a another tray he received potatoes. DVT/VTE prophylaxis: heparin Code status: Full code Disposition: Patient remains significantly weak and is requiring significant assitance with ambulation. Case management is working on rehab placement Date of Service: Nov 12, 2024 Billing Provider: JAIME HOLDER DO Common Visit Codes: [id number] INP/OBS CARE(HIGH) JAIME HOLDER DO Nov 12, 2024 17:38
[2024-11-12] MEDS: insulin glargine (Lantus) pen - multi-dose SQ SCH (21:11)
[2024-11-13 05:00] VITALS: BP 136/70; PULSE 82; RESP 20; TEMP 97.5; O2SAT 96
[2024-11-13 08:20] VITALS: BP 148/78; PULSE 91
[2024-11-13 09:32] LABS: MEAN PLATELET VOLUME 8.2 FL (7.4-10.4); RED CELL DISTRIBUTION WIDTH 15.9 % (11.5-14.5)
[2024-11-13 09:39] VITALS: RESP 20; O2SAT 95
[2024-11-13 09:45] LABS: CREATININE 0.91 MG/DL (0.60-1.10); TOTAL CARBON DIOXIDE 26.8 MMOL/L (24-32); eCRCL 83 ML/MIN; eGFR 81 ML/MIN
[2024-11-13 11:00] VITALS: BP 122/59; PULSE 78; RESP 18; TEMP 97; O2SAT 93
[2024-11-13 18:00] VITALS: BP 158/60; PULSE 77; RESP 16; TEMP 97.1; O2SAT 96
--- NOTE | 2024-11-13 18:30 | PROGRESS NOTE ---
Daily Progress Note Providers to CC ~ Antibiotic Timeout Antibiotic Ordered?: Yes Subjective Patient continues to have erythema in the inguinal region- the patient was started on Jardiance on admission which will be discontinued. The patient's blood sugars are slightly improved however remained uncontrolled I am increasing postprandial insulin from 12 units to 15 units Objective Vital Signs Date Time Temp Pulse Resp B/P (MAP) Pulse Ox O2 Delivery O2 Flow Rate FiO2 11/13/24 11:00 97.0 78 18 122/59 (80) 93 Room Air 11/13/24 08:00 0.0 Result Diagram: 11/13/24 0842 11/13/24 08 Gen. No acute distress alert and oriented 4 Lungs clear to ascultation bilaterally, no wheezes rales or rhonchi appreciated Heart normal sinus rhythm no murmurs rubs or clicks noted Abdomen soft nontender bowel sounds are normoactive Lower extremities no clubbing cyanosis, nor edema appreciated bilaterally Skin mild erythema of the perineum and scrotal sac as well as large multiple blisters in the perineum as well Problem\Assessment\Plan Additional Plan 74-year-old male with a past medical history of left RCC s/p left nephrectomy, NIDDM, HLD, HTN, CHF who was brought to the ED via EMS due to acute onset generalized weakness x 2 days. Patient also reports 30 years of chronic b/l groin and perineum rash that he has been getting treated for with his PCP. On October 30, 2022 discharge history-This is a 72-year-old history of left nephrectomy secondary to renal cell carcinoma, prostate cancer, hyperlipidemia, hypertension, diabetes mellitus Shanta-Shanta disease who presents to [facility] for confusion/weakness. Patient was found to be COVID-19 positive Assessment & Plan Sepsis 2/2 cellulitis, b/l groins Cellulitis Bullous pemphigoid Lactic acidosis Metabolic acidosis Dehydration Prerenal JONY 2/2 dehydration/possible vasomotor nephropathy -lactic acid 5.1, bicarb 21, anion gap>12; procal negative, CXR negative, UA negative UTI. -fluid resuscitation, continuous LR, vanco/cefepime/Flagyl wound care, no abscess was seen on CT scan 11/10 improving 11/11 cellulitis is significantly improved today, renal function slightly worse but significantly improved from that of admission status 11/12 renal function is improving, cellulitis is stable 11/13 DC Jardiance as this does place the patient on greater risk of fungal infection and worsening of the fungal infection of his perineum Chronic diastolic heart failure Dkk-dkcdwaq-tiynkxgrr diabetes mellitus HTN HLD Left RCC s/p left nephrectomy BPH -CXR negative, no clinical signs of fluid overload, A1c8.6, start hyper/hypoglycemic protocol, continue home statin, Flomax, metoprolol -optimize GDMT as tolerated, follow lipid panel And a hyper and hypoglycemic protocol added Lantus and postprandial insulin as well 11/10 blood sugar control was significantly improved today 11/11 blood sugars are elevated postprandial increased postprandial insulin from 4-7 units 11/12 blood sugars are up trending I increased Lantus to 8 units and PC insulin to 12 units the informs me the patient is receiving multiple high carb items on his tray including putting an ice cream on one tray and a another tray he received potatoes. 11/13 increased PC insulin from 12 to15 units DVT/VTE prophylaxis: heparin Code status: Full code Disposition: Patient remains significantly weak and is requiring significant assitance with ambulation. Case management is working on rehab placement Date of Service: Nov 13, 2024 Billing Provider: JAIME HOLDER DO Common Visit Codes: [id number] INP/OBS CARE(HIGH) JAIME HOLDER DO Nov 13, 2024 18:30
[2024-11-13] MEDS: INSULIN LISPRO 100 UNIT/ML INSULN.PEN MULTI-DOSE SQ SCH (18:56)
[2024-11-13] MEDS: oxyCODONE/APAP 5-325mg tablet PO PRN (20:49)
[2024-11-13 22:00] VITALS: BP 157/64; PULSE 85; RESP 20; TEMP 96.8; O2SAT 93
[2024-11-14 01:33] LABS: MEAN PLATELET VOLUME 7.8 FL (7.4-10.4); RED CELL DISTRIBUTION WIDTH 15.8 % (11.5-14.5)
[2024-11-14 01:55] LABS: CREATININE 1.13 MG/DL (0.60-1.10); TOTAL CARBON DIOXIDE 28.1 MMOL/L (24-32); eCRCL 67 ML/MIN; eGFR 63 ML/MIN
[2024-11-14] MEDS: VANCOMYCIN LEVEL IV ONE (02:16)
[2024-11-14 03:15] LABS: BANDS% (MANUAL) 1.0 % (0-10); EOSINOPHILS % (MANUAL) 2.0 % (0-6); LYMPHOCYTES % (MANUAL) 34.0 % (21-51); METAMYLEOCYTES% (MANUAL) 1.0 % (0-0); MONOCYTES % (MANUAL) 13.0 % (2-12); NEUTROPHILS % (MANUAL) 49.0 % (42-75); PLATELET ESTIMATE NORMAL
[2024-11-14 06:10] VITALS: BP 156/75; PULSE 92; RESP 16; TEMP 96.9; O2SAT 96
[2024-11-14] MEDS ORDERED: INSULIN LISPRO 100 UNIT/ML INSULN.PEN MULTI-DOSE SQ SCH (09:00)
[2024-11-14 10:30] VITALS: BP 147/60; PULSE 85; RESP 18; TEMP 96.1; O2SAT 93
[2024-11-14] MEDS: vancomycin inj. 750 MG in normal saline 250ml IV soln 250 ML IV SCH (13:55)
--- NOTE | 2024-11-14 15:32 | PROGRESS NOTE ---
Daily Progress Note Providers to CC ~ Antibiotic Timeout Antibiotic Ordered?: Yes Subjective The patient has perineal region still appears raw- his scrotal cellulitis has resolved. The is at bedside and has no acute requests. Objective Vital Signs Date Time Temp Pulse Resp B/P (MAP) Pulse Ox O2 Delivery O2 Flow Rate FiO2 11/14/24 10:30 96.1 85 18 147/60 (89) 93 Room Air 11/14/24 08:00 0.0 Result Diagram: 11/14/24 0122 11/14/24 0122 Gen. No acute distress alert and oriented 4 Lungs clear to ascultation bilaterally, no wheezes rales or rhonchi appreciated Heart normal sinus rhythm no murmurs rubs or clicks noted Abdomen soft nontender bowel sounds are normoactive Lower extremities no clubbing cyanosis, nor edema appreciated bilaterally Skin mild erythema of the perineum and scrotal sac - excoriated skin of the perineum bilaterally Problem\Assessment\Plan Additional Plan 74-year-old male with a past medical history of left RCC s/p left nephrectomy, NIDDM, HLD, HTN, CHF who was brought to the ED via EMS due to acute onset generalized weakness x 2 days. 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 On October 30, 2022 discharge history-This is a 72-year-old history of left nephrectomy secondary to renal cell carcinoma, prostate cancer, hyperlipidemia, hypertension, diabetes mellitus Shanta-Shanta disease who presents to [facility] for confusion/weakness. Patient was found to be COVID-19 positive The patient has been accepted to [facility] rehab however awaiting insurance authorization Assessment & Plan Sepsis 2/2 cellulitis, b/l groins Cellulitis Bullous pemphigoid Lactic acidosis Metabolic acidosis Dehydration Prerenal JONY 2/2 dehydration/possible vasomotor nephropathy -lactic acid 5.1, bicarb 21, anion gap>12; procal negative, CXR negative, UA negative UTI. -fluid resuscitation, continuous LR, vanco/cefepime/Flagyl wound care, no abscess was seen on CT scan 11/10 improving 11/11 cellulitis is significantly improved today, renal function slightly worse but significantly improved from that of admission status 11/12 renal function is improving, cellulitis is stable 11/13 DC Jardiance as this does place the patient on greater risk of fungal infection and worsening of the fungal infection of his perineum 11/14 the skin of the perineum remains excoriated dry wound care sheets are being applied Chronic diastolic heart failure Rhn-xagvtnt-oeangxrix diabetes mellitus HTN HLD Left RCC s/p left nephrectomy BPH -CXR negative, no clinical signs of fluid overload, A1c8.6, start hyper/hypoglycemic protocol, continue home statin, Flomax, metoprolol -optimize GDMT as tolerated, follow lipid panel And a hyper and hypoglycemic protocol added Lantus and postprandial insulin as well 11/10 blood sugar control was significantly improved today 11/11 blood sugars are elevated postprandial increased postprandial insulin from 4-7 units 11/12 blood sugars are up trending I increased Lantus to 8 units and PC insulin to 12 units the informs me the patient is receiving multiple high carb items on his tray including putting an ice cream on one tray and a another tray he received potatoes. 11/13 increased PC insulin from 12 to15 units 11/14 postprandial blood glucose readings are significantly improved DVT/VTE prophylaxis: heparin Code status: Full code Disposition: Patient remains significantly weak and is requiring significant assitance with ambulation. Case management is working on rehab placement- the patient has been accepted to [facility] post acute rehab however awaiting insurance authorization. Date of Service: Nov 14, 2024 Billing Provider: JAIME HOLDER DO Common Visit Codes: [id number] INP/OBS CARE(HIGH) JAIME HOLDER DO Nov 14, 2024 15:32
[2024-11-14 18:00] VITALS: BP 128/96; PULSE 90; RESP 16; TEMP 97.8; O2SAT 96
[2024-11-14 20:00] VITALS: RESP 16; O2SAT 94
[2024-11-14 22:00] VITALS: BP 137/66; PULSE 92; RESP 16; TEMP 97.8; O2SAT 94
[2024-11-15 05:32] LABS: MEAN PLATELET VOLUME 8.1 FL (7.4-10.4); RED CELL DISTRIBUTION WIDTH 16.6 % (11.5-14.5)
[2024-11-15 06:11] LABS: CREATININE 1.00 MG/DL (0.60-1.10); TOTAL CARBON DIOXIDE 26.6 MMOL/L (24-32); eCRCL 75 ML/MIN; eGFR 73 ML/MIN
[2024-11-15 06:39] VITALS: BP 165/73; PULSE 86; RESP 18; TEMP 97.4; O2SAT 95
[2024-11-15 06:56] LABS: LARGE PLATELETS FEW; PLATELET ESTIMATE NORMAL
--- NOTE | 2024-11-15 11:27 | PROGRESS NOTE ---
Daily Progress Note Providers to CC ~ Nunez-Non Protocol Nunez Indications Met/Not Met: F/C Indications Met Antibiotic Timeout Antibiotic Ordered?: Yes Subjective No acute events overnight. Patient examined at bedside. No new complaints. Patient denies chest pain, sob, palpitations, abdominal pain, n/v/d. Vss, labs unremarkable. Pending rehab. 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 On October 30, 2022 discharge history-This is a 72-year-old history of left nephrectomy secondary to renal cell carcinoma, prostate cancer, hyperlipidemia, hypertension, diabetes mellitus Shanta-Shanta disease who presents to [facility] for confusion/weakness. Patient was found to be COVID-19 positive The patient has been accepted to [facility] rehab however awaiting insurance authorization Assessment & Plan Sepsis 2/2 cellulitis, b/l groins Cellulitis Bullous pemphigoid Lactic acidosis Metabolic acidosis Dehydration Prerenal JONY 2/2 dehydration/possible vasomotor nephropathy -lactic acid 5.1, bicarb 21, anion gap>12; procal negative, CXR negative, UA negative UTI. -fluid resuscitation, continuous LR, vanco/cefepime/Flagyl wound care, no abscess was seen on CT scan 11/10 improving 11/11 cellulitis is significantly improved today, renal function slightly worse but significantly improved from that of admission status 11/12 renal function is improving, cellulitis is stable 11/13 DC Jardiance as this does place the patient on greater risk of fungal infection and worsening of the fungal infection of his perineum 11/14 the skin of the perineum remains excoriated dry wound care sheets are being applied 11/15 pending rehab Chronic diastolic heart failure Rer-[id number]-[id number] diabetes mellitus HTN HLD Left RCC s/p left nephrectomy BPH -CXR negative, no clinical signs of fluid overload, A1c8.6, start hyper/hypoglycemic protocol, continue home statin, Flomax, metoprolol -optimize GDMT as tolerated, follow lipid panel And a hyper and hypoglycemic protocol added Lantus and postprandial insulin as well 11/10 blood sugar control was significantly improved today 11/11 blood sugars are elevated postprandial increased postprandial insulin from 4-7 units 11/12 blood sugars are up trending I increased Lantus to 8 units and PC insulin to 12 units the informs me the patient is receiving multiple high carb items on his tray including putting an ice cream on one tray and a another tray he received potatoes. 11/13 increased PC insulin from 12 to15 units 11/14 postprandial blood glucose readings are significantly improved 11/15: Lantus dose adjusted DVT/VTE prophylaxis: heparin Code status: Full code Disposition: Patient remains significantly weak and is requiring significant assitance with ambulation. Case management is working on rehab placement- the patient has been accepted to [facility] post acute rehab however awaiting insurance authorization. Date of Service: Nov 15, 2024 Billing Provider: DERIK العلي Common Visit Codes: [id number] INP/OBS CARE(MOD) DERIK العلي Nov 15, 2024 11:27
[2024-11-15 11:34] VITALS: BP 175/70; PULSE 88; RESP 17; TEMP 98.4; O2SAT 95
[2024-11-15 18:00] VITALS: BP_SYST 156; BP_SYST 159; BP_DIAS 73; BP_DIAS 74; PULSE 81; PULSE 97; RESP 16; RESP 19; TEMP 97.4; TEMP 98.4; O2SAT 95; O2SAT 97
[2024-11-15 20:00] VITALS: RESP 16; O2SAT 97
[2024-11-15 22:00] VITALS: BP 156/73; PULSE 97; RESP 19; TEMP 97.4; O2SAT 95
[2024-11-15] MEDS: insulin glargine (Lantus) pen - multi-dose SQ SCH (22:51)
[2024-11-16] MEDS: VANCOMYCIN LEVEL IV ONE (01:45)
[2024-11-16 01:50] LABS: MEAN PLATELET VOLUME 7.8 FL (7.4-10.4); RED CELL DISTRIBUTION WIDTH 16.4 % (11.5-14.5)
[2024-11-16 02:07] LABS: CREATININE 0.74 MG/DL (0.60-1.10); TOTAL CARBON DIOXIDE 27.5 MMOL/L (24-32); eCRCL 102 ML/MIN; eGFR > 90 ML/MIN
[2024-11-16 02:25] LABS: BANDS% (MANUAL) 12 % (0-10); LYMPHOCYTES % (MANUAL) 39 % (21-51); METAMYLEOCYTES% (MANUAL) 2 % (0-0); MONOCYTES % (MANUAL) 12 % (2-12); MYELOCYTES % (MANUAL) 2 % (0-0); NEUTROPHILS % (MANUAL) 33 % (42-75); PLATELET ESTIMATE NORMAL
[2024-11-16 02:58] VITALS: O2SAT 97
[2024-11-16 06:00] VITALS: BP 155/71; PULSE 99; RESP 19; TEMP 97.9; O2SAT 95
[2024-11-16 10:00] VITALS: BP 150/68; PULSE 98; RESP 17; TEMP 98; O2SAT 93
--- NOTE | 2024-11-16 12:36 | DISCHARGE SUMMARY ---
Discharge Summary Providers to CC ~ Discharge Summary Admission Diagnosis: metabolic acidosis, JONY, sepsis Hospital Course DATE OF ADMISSION: 11/07/24 DATE OF DISCHARGE: 11/16/24 Discharge Diagnosis\Comment: Sepsis 2/2 cellulitis, b/l groins Cellulitis Bullous pemphigoid Lactic acidosis Metabolic acidosis Dehydration Prerenal JONY 2/2 dehydration/possible vasomotor nephropathy Chronic diastolic heart failure [id number] diabetes mellitus HTN HLD Left RCC s/p left nephrectomy BPH Generalized weakness Operations\Procedures: None Consultants: None Complications: None Condition on DC: Stable for transfer Discharge Summary: History of Present Illness Charlie Bang is a 74-year-old male with a past medical history of left RCC s/p left nephrectomy, NIDDM, HLD, HTN, CHF who was brought to the ED via EMS due to acute onset generalized weakness x 2 days. Patient also reports 30 years of chronic b/l groin and perineum rash that he has been getting treated for with his PCP. Patient denies prior [place]/CAD, CVA, cardiac arrhythmia, DVT/PE, or GIB. Patient denies chest pain, palpitations, shortness of breath, abdominal pain, n/v/d, fever, chills, dysuria. Initial diagnostic findings were notable for sinus tachycardia in 100s, elevated lactic acid at 5.1mmol/L, bicarb 21.2mmol/L, anion gap>12, clinical signs of dehydration. Pertinent negative findings are procal negative, CXR negative, UA negative UTI. Patient is to be admitted for further workups and treatment. Hospital Course Further diagnostic workups including CT revealed cellulitis but negative for abscess. Patient was treated with intravenous fluids and empirical antibiotics. Patient's elevated lactic acid, acidosis, and acute kidney injury resolved with the start of treatment. Cellulitis in the areas of concern improved. Patient did not experience further complications throughout the entire hospital stay and made a good recovery. Patient was seen and examined on the day of discharge. On day of discharge, vss and labs unremarkable. All labs, diagnostic workups, discharge plan discussed with patient in details during visit before discharge. All questions and concerns answered to the best of my professional knowledge. The patient is to be discharged to rehab for continued management. 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
[2024-11-16] MEDS ORDERED: insulin glargine (Lantus) pen - multi-dose SQ SCH (21:00)
[2024-11-21] MEDS ORDERED: VANCOMYCIN LEVEL IV ONE (01:30)
== END 2024-11-16 15:16 | DRG 871 ==
LOC: ER 08:22 → ED HOLD 11:30 → ORTHO 4S 13:25 → SUR 3N 11-12 11:15
PROVIDERS: ADMIT Nurse Practitioner Family; ATTEND Nurse Practitioner Family
DX: A41.9 Sepsis, unspecified organism (principal); N17.0 Acute kidney failure with tubular necrosis; L03.314 Cellulitis of groin; I50.32 Chronic diastolic (congestive) heart failure; L12.0 Bullous pemphigoid; E87.20 Acidosis, unspecified; Z20.822 Contact with and (suspected) exposure to COVID-19; E86.0 Dehydration; E11.65 Type 2 diabetes mellitus with hyperglycemia; J44.9 Chronic obstructive pulmonary disease, unspecified; E78.5 Hyperlipidemia, unspecified; I11.0 Hypertensive heart disease with heart failure; N40.0 Benign prostatic hyperplasia without lower urinary tract symptoms; Z90.49 Acquired absence of other specified parts of digestive tract; Z85.528 Personal history of other malignant neoplasm of kidney; Z90.5 Acquired absence of kidney; Z88.8 Allergy status to other drugs, medicaments and biological substances; Z91.09 Other allergy status, other than to drugs and biological substances; Z79.84 Long term (current) use of oral hypoglycemic drugs; Z79.899 Other long term (current) drug therapy; Z85.46 Personal history of malignant neoplasm of prostate
CPT/HCPCS: 36415; 71045; 72192; 80048; 80053; 80061; 80202; 80320; 81001; 82948; 83036; 83605; 83735; 84145; 85007; 85008; 85025; 87040; 87077; 87081; 87186; 87811; 93005; 93306; 96365; 96367; 96375; 97110; 97116; 97161; 97530; 99285; A4314; A6154; A6213; A6224; A6250; A6253; A6449; A6590; G0378; J0692; J1171; J1450; J1644; J1815; J1956; J3373; J3375; J3490; J7040; J7050; J7120

== ENCOUNTER 2024-11-28 07:07 | Emergency (ER) | payer MEDICARE ==
[~2024-11-28] VITALS: Ht 185.4 cm; Wt 96.7 kg
[~2024-11-28 07:07] MED LIST changes: -DEXA6TAB PO; -DOCU-368 PO; +GLIM1TAB57 PO
--- NOTE | 2024-11-28 07:41 | Physician Documentation ---
History of Present Illness ~ Chief Complaint: Catheter Problem Stated Complaint: BLOOD IN CATHETER Time Seen by MD: 07:41 Mode of Arrival: EMS HPI 74-year-old male, with an indwelling Nunez catheter, who is sent in with blood in the urine Reportedly the patient had blood in his urine in the catheter bag, as well as some leaking around the catheter. He also complained of some lower abdominal pain. The catheter was replaced. There continues to be blood in the catheter. The patient denies any other symptoms. He states he is hungry. No fevers, chills, nausea, vomiting, upper abdominal pain, diarrhea No other acute complaints Medication Reconciliation Allergies: Coded Allergies: fentanyl (Verified Allergy, Unknown, HALLUCINATIONS, 06/25/23) pollen extracts (Unverified Allergy, Unknown, RUNNY NOSE, 06/25/23) adhesive (Verified Adverse Reaction, Unknown, 06/25/23) cefdinir (Unverified Adverse Reaction, Unknown, DIARRHEA, 06/25/23) Scheduled Glimepiride* (Amaryl*), 1 TAB PO BID, (Reported) Metformin HCl (Metformin HCl), 1 TAB PO BIDWM, (Reported) Metoprolol Succinate (Metoprolol Succinate), 1 TAB PO DAILY, (Reported) Rosuvastatin Calcium (Rosuvastatin Calcium), 1 TAB PO HS, (Reported) Tamsulosin Hcl (Flomax), 1 CAP PO DAILY@0830, (Reported) Past Medical History Past Medical History: Hypertension, COPD, BPH, Renal Disease, Diabetes, Chronic Back Pain, *CANCER* Past Surgical History: abdominal surgery, appendectomy, orthopedic surgeries Patient History: Patient reports no known family medical history. Alcohol Use: None Drug Use: none Lives with: Family Lives In: Home Review of Systems Constitutional: Denies: fever Gastrointestinal: Reports: abdominal pain Genitourinary: Reports: hematuria Physical Exam Vital Signs: Temperature: 97.8, Heart Rate: 90, Respiratory Rate: 12, BP: 127/80, Pulse Oximetry: 96, Weight: 96.700 Oxygen Flow Rate: 0 Physical Exam General: This is a frail appearing older man lying quietly in bed, at bedside HEENT: Atraumatic, oropharynx appears dry Heart: Regular rate, normal-appearing peripheral perfusion Lungs: normal work of breathing, normal oxygen saturation on room air Abdomen: Soft, nondistended, no significant tenderness to palpation in the suprapubic region, no rebound or guarding : The patient has a catheter in place, there was some blood-tinged urine in the bag, it appears to be draining well Neuro: Alert and oriented Psychiatric: Calm and cooperative with exam Progress Results/Orders Results/Orders Orders - ANJELICA GIPSON MD Cult Urine + [address] (11/28/24 09:27) Completed Orders - ANJELICA GIPSON MD Ua W/Microscopic, Cult If Ind (11/28/24 07:30) Vital Signs 11/28/24 11/28/24 11/28/24 11/28/24 07:14 07:22 08:31 09:31 Temp 97.8 97.8 97.8 Pulse 90 99 97 Resp 12 12 16 19 B/P (MAP) 127/80 136/80 (98) 135/71 (92) Pulse Ox 96 99 99 O2 Flow Rate 0 0 0 11/28/24 10:45 Pulse 102 Resp 16 B/P (MAP) 148/74 Pulse Ox 95 Laboratory Tests Test 11/28/24 07:30 Urine Specimen Description Nunez cath Urine Color [place] Urine Clarity Cloudy Urine pH 5.5 Urine Specific [place] 1.015 Urine Protein 100 H Urine Glucose (UA) Negative Urine Ketones Negative Urine Occult Blood Large H Urine Nitrite Negative Urine Bilirubin Negative Urine Urobilinogen 0.2 Urine Leukocyte Esterase Negative Urine RBC Tntc Urine WBC 10-20 H Urine Squamous Epithelial Cells Few Urine Amorphous Urates 2+ Urine Bacteria None seen Urine Culture Indicated Indicated Volume Urine Centrifuged 10 ml Urine Comment Microbiology Date/Time Source Procedure Growth Status 11/28/24 09:27 Urine Nunez Cath Urine Culture - Preliminary Culture received. Resulted Medical Decision Making Additional Comment Differential includes UTI, kidney stone, hematuria, catheter malfunction Assessment Here in the ED, the patient presents with blood in his Nunez catheter bag. He has some lower abdominal tenderness but no other symptoms including he is afebrile. The catheter already was replaced this morning successfully and appears to be draining. Urinalysis does not appear consistent with a UTI. Urine culture is pending. Given his otherwise well appearance, lack of fever or other symptoms he seems safe for discharge home with strict return precautions. He will be contacted if the urine cultures positive for infection and he needs antibiotics. Departure Time of Disposition: 09:48 Disposition: 01 HOME / SELF CARE / HOMELESS Impression: Primary Impression: Hematuria Discharge Instructions: Hematuria, Adult, Indwelling Urinary Catheter Care, Adult Referrals: NO PRIMARY CARE PROVIDER (PCP) Education Educated: Patient, Family Educated regarding: diagnosis, need for follow up Signature Scribe Signature: na Attestation: ANJELICA Judd MD Nov 28, 2024 07:41
[2024-11-28 08:56] LABS: LEUKOCYTE ESTERASE ,URINE NEGATIVE (Neg); NITRITES, URINE NEGATIVE (Neg); OCCULT BLOOD,URINE LARGE (Neg)
[2024-11-28 09:24] LABS: SQUAMOUS EPITHELIAL CELL,UR FEW /LPF (FEW); UA COLLECTION TYPE FOLEY CATH
[2024-11-28 09:27] LABS: AMORPHOUS URATES 2+
[2024-11-28 09:31] VITALS: TEMP 97.8
[2024-11-28 10:45] VITALS: BP 148/74; PULSE 102; RESP 16; O2SAT 95
== END 2024-11-28 11:20 | disposition home or self-care (01) ==
LOC: ER 07:08
DX: R31.9 Hematuria, unspecified (principal); T83.038A Leakage of other urinary catheter, initial encounter; R10.30 Lower abdominal pain, unspecified; E11.9 Type 2 diabetes mellitus without complications; G89.29 Other chronic pain; I10 Essential (primary) hypertension; J44.9 Chronic obstructive pulmonary disease, unspecified; Z88.1 Allergy status to other antibiotic agents; Z88.5 Allergy status to narcotic agent; Z90.49 Acquired absence of other specified parts of digestive tract
CPT/HCPCS: 51702; 51798; 81001; 87088; 99284

== ENCOUNTER 2024-12-13 12:27 | Inpatient (IN) | payer MEDICARE ==
[~2024-12-13] VITALS: Ht 188 cm; Wt 100.0 kg
[2024-12-13 13:19] LABS: MEAN PLATELET VOLUME 8.4 FL (7.4-10.4); RED CELL DISTRIBUTION WIDTH 16.6 % (11.5-14.5)
[2024-12-13 13:21] LABS: CREATININE 1.25 MG/DL (0.60-1.10); TOTAL CARBON DIOXIDE 28.2 MMOL/L (24-32); eCRCL 60 ML/MIN; eGFR 56 ML/MIN
--- NOTE | 2024-12-13 15:12 | RADIOLOGY REPORT ---
EXAM: CT CT ABDOMEN PELVIS HISTORY: constipation TECHNIQUE: Volumetric multidetector CT images of the abdomen and pelvis were obtained after the administration of intravenous contrast. All CT scans at this facility use dose modulation, iterative reconstruction, and/or weight based dosing when appropriate to reduce radiation dose to as low as reasonably achievable. COMPARISON: CT CT PELVIS on DOS: 11/07/24 FINDINGS: [LOWER CHEST]: Inconspicuous interstitial thickening in bilateral lung bases with small amount of atelectasis and/or scarring most conspicuous in the lateral basilar segment, left lower lobe. [LIVER]: Normal hepatic size without suspicious focal lesion. [GALLBLADDER AND BILIARY TREE]: Surgically absent. [SPLEEN]: Unremarkable. [PANCREAS]: Unremarkable. [ADRENAL GLANDS]: Unremarkable [KIDNEYS]: No hydronephrosis. No nephroureterolithiasis. prior left nephrectomy [BLADDER]: Circumferential bladder wall thickening, which may be seen in the setting of acute versus chronic cystitis and correlate with urinalysis. Nunez catheter in place. [REPRODUCTIVE ORGANS]: Unremarkable. [BOWEL/MESENTERY]: Stomach is normal. No CT evidence of bowel obstruction. Mild stool burden. Loops of bowel adhered to the anterior abdominal wall deep to the area of colostomy reversal. [ASCITES]: Absent [LYMPHADENOPATHY]: No pathologically enlarged lymph nodes by CT size criteria [VASCULATURE]: No aneurysmal dilatation. [ABDOMINAL WALL]: Small fat containing bilateral inguinal hernias. Postsurgical changes related to left hemiabdomen colostomy reversal. Injection related granulomas along the anterior abdominal wall. [MUSCULOSKELETAL]: No acute fracture or aggressive focal osseous lesion. Multifocal degenerative change of the visualized spine. Superior endplate height loss, likely chronic L2 measuring 10-20 percent. No retropulsion. IMPRESSION: 1. No CT evidence of an acute abdominal/pelvic process. 2. Circumferential bladder wall thickening, which may be seen in the setting of acute versus chronic cystitis and correlate with urinalysis. 3. Mild stool burden.
[2024-12-13 16:02] LABS: MEAN PLATELET VOLUME 7.9 FL (7.4-10.4); RED CELL DISTRIBUTION WIDTH 16.4 % (11.5-14.5)
[2024-12-13 16:16] LABS: CREATININE 1.27 MG/DL (0.60-1.10); TOTAL CARBON DIOXIDE 28.9 MMOL/L (24-32); eCRCL 59 ML/MIN; eGFR 55 ML/MIN
[2024-12-13] MEDS ORDERED: magnesium sulf-water 4G/100mL 100 ML IV PRN (16:35)
[2024-12-13] MEDS ORDERED: ondansetron/PF 4mg/2ml inj IV PRN (16:35)
[2024-12-13] MEDS ORDERED: magnesium sulf-water 2g/50mL 50 ML IV PRN (16:35)
[2024-12-13] MEDS ORDERED: potassium Cl 20 mEq SR tablet PO PRN ×2 (16:35)
[2024-12-13] MEDS ORDERED: mag hydrox/Alum hydrox/simeth 30ml oral suspension PO PRN (16:35)
[2024-12-13] MEDS ORDERED: potassium Cl 40MEQ/1/2NS 520ml 520 ML IV PRN (16:35)
--- NOTE | 2024-12-13 16:43 | HISTORY AND PHYSICAL ---
History & Physical Providers to CC ~ History of Present Illness Reason for Admit\Complaint: JONY History of Present Illness Charlie Bang is a 74-year-old female with a past medical history of diastolic heart failure, chronic indwelling catheter status, chronic b/l groin cellulitis, IDDM who was brought to the ED from [facility] due to concerns for low H/H. Patient denies prior [place]/CAD, CVA, cardiac arrhythmia, DVT/PE, or GIB. Patient denies chest pain, palpitations, shortness of breath, abdominal pain, n/v/d, melena, hematochezia, hematemesis, fatigue, dizziness, loss of consciousness. Initial diagnostic findings are notable for findings of acute kidney injury. Patient is to be admitted for further workups and treatment. Allergies: Coded Allergies: fentanyl (Verified Allergy, Unknown, HALLUCINATIONS, 06/25/23) pollen extracts (Unverified Allergy, Unknown, RUNNY NOSE, 06/25/23) adhesive (Verified Adverse Reaction, Unknown, 06/25/23) cefdinir (Unverified Adverse Reaction, Unknown, DIARRHEA, 06/25/23) Home Medications Home Medications Active Reported Amaryl* (Glimepiride) 1 Mg Tablet 1 Tab PO BID 30 Days Metoprolol Succinate 50 Mg Tab.sr.24h 1 Tab PO DAILY Metformin HCl 1,000 Mg Tablet 1 Tab PO BIDWM Rosuvastatin Calcium 20 Mg Tablet 1 Tab PO HS Flomax (Tamsulosin HCl) 0.4 Mg Cap.sr.24h 1 Cap PO DAILY@0830 Past Medical History Past Medical History IDDM Hypertension CHF HLD Hyperlipidemia Left RCC Past Surgical History Surgical History Comment Cystectomy Left nephrectomy Family History Family History: Patient reports no known family medical history. Past Social History Social History Comment Alcohol: Denies Tobacco: Denies Illicit drug use: Denies Living situation: From [facility], Lives at home with spouse ROS ROS Other than positives in HPI, all 14 review of systems are negative Exam Vitals: Vital Signs Date Time Temp Pulse Resp B/P (MAP) Pulse Ox O2 Delivery O2 Flow Rate FiO2 12/13/24 15:32 98.0 12/13/24 15:05 12/13/24 15:02 103 16 95 0 General: Generalized weakness, A&Ox 3, NAD HEENT: Normocephalic, PERRLA Neck: Supple, trachea midline, no JVD Chest: Clear to auscultation bilaterally Cardiovascular: RRR, S1&S2 Abdomen: Soft and nontender Extremities: No cyanosis/clubbing/or edema Central Nervous System: CN II-XII intact, no focal deficits Musculoskeletal: No paraspinal muscle tenderness, no muscle spasm Skin: Mildly erythematous b/l groins Diagnostic Data Last Recorded Lab Results: 12/13/24 1550 12/13/24 1550 Additional Plan Assessment & Plan Prerenal JONY 2/2 dehydration/vasomotor nephropathy Cystitis Dehydration Anemia, normocytic Anemia of chronic disease Malnutrition, moderate Chronic urinary indwelling catheter status UTI -CT abd/pelvis shows cystitis, no acute abdominal/pelvic abnormality, no hydronephrosis -BUN Cr 31.2, Cr 1.25, GFR 56, Hgb/Hct 11.9/34.4 no significant changes from 1 month ago -IVF, abx, follow strict I&Os IDDM Hyperglycemia Hypertension Chronic diastolic heart failure HLD Hyperlipidemia Left RCC s/p left nephrectomy Chronic b/l groin cellulitis -A1c 8.6%, Lantus, hyper/hypoglycemic protocol, healing wound, wound care consult, pending med rec DVT/VTE Prophylaxis: heparin Code Status: Full Code I spent a total of 35 minutes discussing Advanced Care Planning measures with the patient. Advance care planning: Discussed with patient the importance of advance care planning in case of emergent situation. We discussed various resuscitative measures/ ACP with the patient at the time of admission. Patient voiced understanding and patient has decided on a full code status. Date of Service: Dec 13, 2024 Billing Provider: DERIK العلي Common Visit Codes: [id number] INP/OBS CARE (HIGH) Secondary Visit Codes: [id number] CARE PLAN 30 MINUTES DERIK العلي Dec 13, 2024 16:43
[2024-12-13 16:44] LABS: LEUKOCYTE ESTERASE ,URINE MODERATE (Neg); NITRITES, URINE NEGATIVE (Neg); OCCULT BLOOD,URINE SMALL (Neg)
[2024-12-13 16:47] LABS: UA COLLECTION TYPE FOLEY CATH
[2024-12-13] MEDS: normal saline 1000ml 1,000 ML IV SCH (16:48)
[2024-12-13] MEDS ORDERED: glucagon, human recombinant 1mg kit SUBCUT PRN (16:50)
[2024-12-13] MEDS ORDERED: DEXTROSE 15 GM of carb/4 tabs (each vial/BOTTLE has 4 tablets) PO PRN ×2 (16:50)
[2024-12-13] MEDS ORDERED: hydrALAZINE 20mg/ml inj. IV PRN (16:50)
[2024-12-13] MEDS ORDERED: dextrose 50%-water 50ml dispensing syringe IV PRN ×2 (16:50)
[2024-12-13 16:51] LABS: SQUAMOUS EPITHELIAL CELL,UR NONE SEEN /LPF (FEW); TRIPLE PHOSPHATE CRYST 1+ /HPF (NEGATIVE)
[2024-12-13] MEDS: INSULIN LISPRO 100 UNIT/ML INSULN.PEN MULTI-DOSE SQ SCH (17:47)
[2024-12-13] MEDS: CefTRIAXone/D5W-Rocephin 1gm 50 ML IV ONE (18:22)
[2024-12-13] MEDS: K and/or MAG REPLACEMENT MC SCH (20:00)
[2024-12-13] MEDS: docusate sod 100mg capsule PO SCH (20:03)
[2024-12-13] MEDS: heparin, porcine 5000 units/ml vial SQ SCH (20:03)
[2024-12-13 22:00] VITALS: BP 114/50; PULSE 81; RESP 15; TEMP 97; O2SAT 94
[2024-12-13] MEDS: insulin glargine (Lantus) pen - multi-dose SQ SCH (23:23)
[2024-12-13] MEDS: INSULIN LISPRO 100 UNIT/ML INSULN.PEN MULTI-DOSE SQ ONE (23:26)
[2024-12-13] MEDS: insulin glargine (Lantus) pen - multi-dose SQ ONE (23:27)
[2024-12-14 05:31] LABS: MEAN PLATELET VOLUME 8.2 FL (7.4-10.4); RED CELL DISTRIBUTION WIDTH 16.5 % (11.5-14.5)
[2024-12-14 05:43] LABS: % IRON SATURATION 24 % (11-46)
[2024-12-14 06:00] VITALS: BP 146/64; PULSE 77; RESP 15; TEMP 96.1; O2SAT 96
[2024-12-14 06:05] LABS: CREATININE 0.85 MG/DL (0.60-1.10); TOTAL CARBON DIOXIDE 31.7 MMOL/L (24-32); eCRCL 89 ML/MIN; eGFR 88 ML/MIN
[2024-12-14] MEDS: CefTRIAXone/D5W-Rocephin 1gm 50 ML IV SCH (08:45)
--- NOTE | 2024-12-14 09:37 | PROGRESS NOTE ---
Daily Progress Note Providers to CC ~ Antibiotic Timeout Antibiotic Ordered?: Yes Subjective No acute events overnight. Patient examined at bedside. No new complaints, not in acute distress. Patient denies chest pain, sob, palpitations, abdominal pain, n/v/d. Vss, Cr downtrending on IVF, H/H slightly dropped likely hemodilusional. Objective Vital Signs Date Time Temp Pulse Resp B/P (MAP) Pulse Ox O2 Delivery O2 Flow Rate FiO2 12/13/24 22:00 97.0 81 15 114/50 (71) 94 Room Air 12/13/24 16:59 0 Result Diagram: 12/14/2445312/14/24453 Physical Exam General: Generalized weakness, A&Ox 3, NAD HEENT: Normocephalic, PERRLA Neck: Supple, trachea midline, no JVD Chest: Clear to auscultation bilaterally Cardiovascular: RRR, S1&S2 Abdomen: Soft and nontender Extremities: No cyanosis/clubbing/or edema Central Nervous System: CN II-XII intact, no focal deficits Musculoskeletal: No paraspinal muscle tenderness, no muscle spasm Skin: Mildly erythematous b/l groins, stage II pressure ulcer in lower back Problem\Assessment\Plan Assessment & Plan Prerenal JONY 2/2 dehydration/vasomotor nephropathy Cystitis Dehydration Anemia, normocytic Anemia of chronic disease Malnutrition, moderate Chronic urinary indwelling catheter status UTI Stage II pressure ulcer- POA -CT abd/pelvis shows cystitis, no acute abdominal/pelvic abnormality, no hydronephrosis -BUN Cr 31.2, Cr 1.25, GFR 56, Hgb/Hct 11.9/34.4 no significant changes from 1 month ago -IVF, abx, follow strict I&Os 12/14: Cr downtrending on IVF, H/H slightly dropped likely hemodilutional IDDM Hyperglycemia Hypertension Chronic diastolic heart failure HLD Hyperlipidemia Left RCC s/p left nephrectomy Chronic b/l groin cellulitis -A1c 8.6%, Lantus, hyper/hypoglycemic protocol, healing wound, wound care consult, continue home statin, bbx DVT/VTE Prophylaxis: heparin Code Status: Full Code Date of Service: Dec 14, 2024 Billing Provider: DERIK العلي Common Visit Codes: [id number] INP/OBS CARE(HIGH) DERIK العلي Dec 14, 2024 09:37
[2024-12-14 10:00] VITALS: BP 135/56; PULSE 89; RESP 16; TEMP 97.4; O2SAT 94
[2024-12-14] MEDS: metoprolol succinate 25mg (24-HOUR) SR. Tablet PO ONE (16:20)
[2024-12-14 18:00] VITALS: BP 139/61; PULSE 85; RESP 16; TEMP 97.9; O2SAT 97
[2024-12-14] MEDS: insulin glargine (Lantus) pen - multi-dose SQ SCH (21:26)
[2024-12-14 22:00] VITALS: BP 143/65; PULSE 91; RESP 18; TEMP 96.3; O2SAT 95
[2024-12-15 05:44] LABS: MEAN PLATELET VOLUME 8.2 FL (7.4-10.4); RED CELL DISTRIBUTION WIDTH 16.0 % (11.5-14.5)
[2024-12-15 05:55] LABS: CREATININE 0.93 MG/DL (0.60-1.10); TOTAL CARBON DIOXIDE 29.4 MMOL/L (24-32); eCRCL 81 ML/MIN; eGFR 79 ML/MIN
[2024-12-15 06:36] LABS: EOSINOPHILS % (MANUAL) 5.0 % (0-6); LYMPHOCYTES % (MANUAL) 48.0 % (21-51); METAMYLEOCYTES% (MANUAL) 1.0 % (0-0); MONOCYTES % (MANUAL) 18.0 % (2-12); NEUTROPHILS % (MANUAL) 28.0 % (42-75); PLATELET ESTIMATE NORMAL
[2024-12-15] MEDS: metoprolol succinate 25mg (24-HOUR) SR. Tablet PO SCH (09:57)
--- NOTE | 2024-12-15 13:35 | PROGRESS NOTE ---
Daily Progress Note Providers to CC ~ Antibiotic Timeout Antibiotic Ordered?: Yes If Yes, Indications: UTI Subjective No acute events overnight. Patient examined at bedside. No new complaints, not in acute distress. Patient denies chest pain, sob, palpitations, abdominal pain, n/v/d. Vss, H/H stable. Preliminary urine cx gram neg john, continued on ceftriaxone. Objective Vital Signs Date Time Temp Pulse Resp B/P (MAP) Pulse Ox O2 Delivery O2 Flow Rate FiO2 12/14/24 22:00 96.3 91 18 143/65 (91) 95 Room Air 12/13/24 16:59 0 Result Diagram: 12/15/2445812/15/24458 Physical Exam General: Generalized weakness, A&Ox 3, NAD HEENT: Normocephalic, PERRLA Neck: Supple, trachea midline, no JVD Chest: Clear to auscultation bilaterally Cardiovascular: RRR, S1&S2 Abdomen: Soft and nontender Extremities: No cyanosis/clubbing/or edema Central Nervous System: CN II-XII intact, no focal deficits Musculoskeletal: No paraspinal muscle tenderness, no muscle spasm Skin: Mildly erythematous b/l groins, stage II pressure ulcer in lower back Problem\Assessment\Plan Assessment & Plan Prerenal JONY 2/2 dehydration/vasomotor nephropathy Cystitis Dehydration Anemia, normocytic Anemia of chronic disease Malnutrition, moderate Chronic urinary indwelling catheter status UTI Stage II pressure ulcer- POA -CT abd/pelvis shows cystitis, no acute abdominal/pelvic abnormality, no hydronephrosis -BUN Cr 31.2, Cr 1.25, GFR 56, Hgb/Hct 11.9/34.4 no significant changes from 1 month ago -IVF, abx, follow strict I&Os 12/14: Cr downtrending on IVF, H/H slightly dropped likely hemodilutional 12/15: prelim urine cx gram neg john continued on ceftriaxone IDDM Hyperglycemia Hypertension Chronic diastolic heart failure HLD Hyperlipidemia Left RCC s/p left nephrectomy Chronic b/l groin cellulitis -A1c 8.6%, Lantus, hyper/hypoglycemic protocol, healing wound, wound care consult, continue home statin, bbx DVT/VTE Prophylaxis: heparin Code Status: Full Code Date of Service: Dec 15, 2024 Billing Provider: DERIK العلي MARKETING INFORMATION ANALYST Common Visit Codes: [id number] INP/OBS CARE(HIGH) DERIK العلي MARKETING INFORMATION ANALYST Dec 15, 2024 13:35
[2024-12-15] MEDS: JUVEN Smoothie Arginine/Glut./Ca2+Bmb (Juven 19.3pkt) 240ml cup PO SCH (17:30)
[2024-12-15 18:00] VITALS: BP 140/72; PULSE 72; RESP 15; TEMP 97.4; O2SAT 98
[2024-12-15 22:00] VITALS: BP 155/57; PULSE 67; RESP 17; TEMP 97.9; O2SAT 96
[2024-12-15] MEDS: insulin glargine (Lantus) pen - multi-dose SQ SCH (22:12)
[2024-12-16 05:11] LABS: MEAN PLATELET VOLUME 8.3 FL (7.4-10.4); RED CELL DISTRIBUTION WIDTH 16.3 % (11.5-14.5)
[2024-12-16 05:20] LABS: CREATININE 1.02 MG/DL (0.60-1.10); TOTAL CARBON DIOXIDE 30.4 MMOL/L (24-32); eCRCL 74 ML/MIN; eGFR 71 ML/MIN
[2024-12-16 07:02] VITALS: BP 134/54; PULSE 72; RESP 18; TEMP 98.7; O2SAT 97
[2024-12-16 07:38] LABS: BANDS% (MANUAL) 5.0 % (0-10); EOSINOPHILS % (MANUAL) 1.0 % (0-6); LYMPHOCYTES % (MANUAL) 59.0 % (21-51); MONOCYTES % (MANUAL) 7.0 % (2-12); NEUTROPHILS % (MANUAL) 28.0 % (42-75)
[2024-12-16 07:40] LABS: PLATELET ESTIMATE NORMAL
[2024-12-16] MEDS: piperacillin/tazo 3.375gm/50ml 50 ML IV SCH (08:35)
[2024-12-16 10:00] VITALS: BP 150/67; PULSE 75; RESP 16; TEMP 97.3; O2SAT 96
[2024-12-16] MEDS: lactose-reduced food (Ensure High Protein) 237ml bottle PO SCH (12:30)
[2024-12-16] MEDS: LidoCAINE 2% Topical Jelly 11mL syringe (UROJET) TOP ONE (13:25)
--- NOTE | 2024-12-16 14:56 | PROGRESS NOTE ---
Daily Progress Note Providers to CC ~ Nunez-Non Protocol Nunez Indications Met/Not Met: F/C Indications Met Antibiotic Timeout Antibiotic Ordered?: Yes Subjective No acute events overnight. Patient examined at bedside. No new complaints, not in acute distress. Patient denies chest pain, sob, palpitations, abdominal pain, n/v/d. Vss, H/H stable. Pending rehab. Objective Vital Signs Date Time Temp Pulse Resp B/P (MAP) Pulse Ox O2 Delivery O2 Flow Rate FiO2 12/16/24 08:49 72 12/16/24 07:02 98.7 18 134/54 (80) 97 Room Air 12/13/24 16:59 0 Result Diagram: 12/16/2443612/16/24436 Physical Exam General: Generalized weakness, A&Ox 3, NAD HEENT: Normocephalic, PERRLA Neck: Supple, trachea midline, no JVD Chest: Clear to auscultation bilaterally Cardiovascular: RRR, S1&S2 Abdomen: Soft and nontender Extremities: No cyanosis/clubbing/or edema Central Nervous System: CN II-XII intact, no focal deficits Musculoskeletal: No paraspinal muscle tenderness, no muscle spasm Skin: Mildly erythematous b/l groins, stage II pressure ulcer in lower back Problem\Assessment\Plan Assessment & Plan Prerenal JONY 2/2 dehydration/vasomotor nephropathy Cystitis Dehydration Anemia, normocytic Anemia of chronic disease Malnutrition, moderate Chronic urinary indwelling catheter status UTI Stage II pressure ulcer- POA -CT abd/pelvis shows cystitis, no acute abdominal/pelvic abnormality, no hydronephrosis -BUN Cr 31.2, Cr 1.25, GFR 56, Hgb/Hct 11.9/34.4 no significant changes from 1 month ago -IVF, abx, follow strict I&Os 12/14: Cr downtrending on IVF, H/H slightly dropped likely hemodilutional 12/15: prelim urine cx gram neg john continued on ceftriaxone 12/16: urine cx Proteus mirabilis MDRO, discussed with ID Dr. Jeong, as patient is asymptomatic and chronic Nunez user ok to stop abx but to change Nunez; pending rehab IDDM Hyperglycemia Hypertension Chronic diastolic heart failure HLD Hyperlipidemia Left RCC s/p left nephrectomy Chronic b/l groin cellulitis -A1c 8.6%, Lantus, hyper/hypoglycemic protocol, healing wound, wound care consult, continue home statin, bbx DVT/VTE Prophylaxis: heparin Code Status: Full Code Date of Service: Dec 16, 2024 Billing Provider: DERIK العلي Common Visit Codes: [id number] INP/OBS CARE(MOD) DERIK العلي Dec 16, 2024 14:56
[2024-12-16] MEDS: morphine 4 MG/ML inj SYRINge IV ONE (15:09)
[2024-12-16 18:00] VITALS: BP 139/61; PULSE 71; RESP 17; TEMP 97.6; O2SAT 97
[2024-12-16 20:00] VITALS: RESP 16; O2SAT 95
[2024-12-16] MEDS: insulin glargine (Lantus) pen - multi-dose SQ SCH (20:17)
[2024-12-16 21:59] VITALS: BP 147/61; PULSE 68; RESP 18; TEMP 97.9; O2SAT 97
[2024-12-17 06:00] VITALS: BP 155/65; PULSE 80; RESP 19; TEMP 98; O2SAT 95
[2024-12-17 06:19] LABS: MEAN PLATELET VOLUME 8.2 FL (7.4-10.4); RED CELL DISTRIBUTION WIDTH 16.0 % (11.5-14.5)
[2024-12-17 08:59] LABS: CREATININE 0.96 MG/DL (0.60-1.10); TOTAL CARBON DIOXIDE 28.4 MMOL/L (24-32); eCRCL 78 ML/MIN; eGFR 77 ML/MIN
--- NOTE | 2024-12-17 11:00 | PROGRESS NOTE ---
Daily Progress Note Providers to CC ~ Antibiotic Timeout Antibiotic Ordered?: No Subjective No acute events overnight. Patient examined at bedside. No new complaints, not in acute distress. Patient denies chest pain, sob, palpitations, abdominal pain, n/v/d. Vss, H/H stable. Pending rehab. Objective Vital Signs Date Time Temp Pulse Resp B/P (MAP) Pulse Ox O2 Delivery O2 Flow Rate FiO2 12/17/24 07:45 71 12/17/24 06:00 98.0 19 155/65 (95) 95 Room Air 12/16/24 20:00 0.0 Result Diagram: 12/17/2444212/17/[id number] Physical Exam General: Generalized weakness, A&Ox 3, NAD HEENT: Normocephalic, PERRLA Neck: Supple, trachea midline, no JVD Chest: Clear to auscultation bilaterally Cardiovascular: RRR, S1&S2 Abdomen: Soft and nontender Extremities: No cyanosis/clubbing/or edema Central Nervous System: CN II-XII intact, no focal deficits Musculoskeletal: No paraspinal muscle tenderness, no muscle spasm Skin: Mildly erythematous b/l groins, stage II pressure ulcer in lower back Problem\Assessment\Plan Assessment & Plan Prerenal JONY 2/2 dehydration/vasomotor nephropathy Cystitis Dehydration Anemia, normocytic Anemia of chronic disease Malnutrition, moderate Chronic urinary indwelling catheter status UTI Stage II pressure ulcer- POA -CT abd/pelvis shows cystitis, no acute abdominal/pelvic abnormality, no hydronephrosis -BUN Cr 31.2, Cr 1.25, GFR 56, Hgb/Hct 11.9/34.4 no significant changes from 1 month ago -IVF, abx, follow strict I&Os 12/14: Cr downtrending on IVF, H/H slightly dropped likely hemodilutional 12/15: prelim urine cx gram neg john continued on ceftriaxone 12/16: urine cx Proteus mirabilis MDRO, discussed with ID Dr. Jeong, as patient is asymptomatic and chronic Nunez user ok to stop abx but to change Nunez; pending rehab IDDM Hyperglycemia Hypertension Chronic diastolic heart failure HLD Hyperlipidemia Left RCC s/p left nephrectomy Chronic b/l groin cellulitis -A1c 8.6%, Lantus, hyper/hypoglycemic protocol, healing wound, wound care consult, continue home statin, bbx DVT/VTE Prophylaxis: heparin Code Status: Full Code Date of Service: Dec 17, 2024 Billing Provider: DERIK العلي Common Visit Codes: [id number] INP/OBS CARE(MOD) DERIK العلي Dec 17, 2024 11:00
[2024-12-17 17:00] VITALS: BP 158/68; PULSE 72; RESP 16; TEMP 97.9; O2SAT 94
[2024-12-17 19:06] VITALS: RESP 16; O2SAT 95
[2024-12-17 22:00] VITALS: BP 139/62; PULSE 66; RESP 16; TEMP 97.5; O2SAT 95
[2024-12-18 06:00] VITALS: BP 146/68; PULSE 77; RESP 16; TEMP 98.3; O2SAT 96
[2024-12-18 06:13] LABS: MEAN PLATELET VOLUME 8.1 FL (7.4-10.4); RED CELL DISTRIBUTION WIDTH 16.2 % (11.5-14.5)
[2024-12-18 06:17] LABS: CREATININE 0.97 MG/DL (0.60-1.10); TOTAL CARBON DIOXIDE 29.5 MMOL/L (24-32); eCRCL 78 ML/MIN; eGFR 76 ML/MIN
[2024-12-18 07:37] LABS: EOSINOPHILS % (MANUAL) 1.0 % (0-6); LYMPHOCYTES % (MANUAL) 39.0 % (21-51); MONOCYTES % (MANUAL) 12.0 % (2-12); NEUTROPHILS % (MANUAL) 48.0 % (42-75); PLATELET ESTIMATE NORMAL
[2024-12-18 08:00] VITALS: RESP 14; O2SAT 94
--- NOTE | 2024-12-18 10:33 | PROGRESS NOTE ---
Daily Progress Note Providers to CC ~ Nunez-Non Protocol Nunez Indications Met/Not Met: F/C Indications Met Antibiotic Timeout Antibiotic Ordered?: No Subjective No acute events overnight. Patient examined at bedside. No new complaints, not in acute distress. Patient denies chest pain, sob, palpitations, abdominal pain, n/v/d. Vss, H/H stable. Pending rehab. Objective Vital Signs Date Time Temp Pulse Resp B/P (MAP) Pulse Ox O2 Delivery O2 Flow Rate FiO2 12/18/24 07:53 77 12/18/24 06:00 98.3 16 146/68 (94) 96 Room Air 12/17/24 19:06 0.0 Result Diagram: 12/18/2444112/18/24441 Physical Exam General: Generalized weakness, A&Ox 3, NAD HEENT: Normocephalic, PERRLA Neck: Supple, trachea midline, no JVD Chest: Clear to auscultation bilaterally Cardiovascular: RRR, S1&S2 Abdomen: Soft and nontender Extremities: No cyanosis/clubbing/or edema Central Nervous System: CN II-XII intact, no focal deficits Musculoskeletal: No paraspinal muscle tenderness, no muscle spasm Skin: Mildly erythematous b/l groins, stage II pressure ulcer in lower back Problem\Assessment\Plan Assessment & Plan Prerenal JONY 2/2 dehydration/vasomotor nephropathy Cystitis Dehydration Anemia, normocytic Anemia of chronic disease Malnutrition, moderate Chronic urinary indwelling catheter status UTI Stage II pressure ulcer- POA -CT abd/pelvis shows cystitis, no acute abdominal/pelvic abnormality, no hydronephrosis -BUN Cr 31.2, Cr 1.25, GFR 56, Hgb/Hct 11.9/34.4 no significant changes from 1 month ago -IVF, abx, follow strict I&Os 12/14: Cr downtrending on IVF, H/H slightly dropped likely hemodilutional 12/15: prelim urine cx gram neg john continued on ceftriaxone 12/16: urine cx Proteus mirabilis MDRO, discussed with ID Dr. Jeong, as patient is asymptomatic and chronic Nunez user ok to stop abx but to change Nunez; pending rehab IDDM Hyperglycemia Hypertension Chronic diastolic heart failure HLD Hyperlipidemia Left RCC s/p left nephrectomy Chronic b/l groin cellulitis -A1c 8.6%, Lantus, hyper/hypoglycemic protocol, healing wound, wound care consult, continue home statin, bbx DVT/VTE Prophylaxis: heparin Code Status: Full Code Date of Service: Dec 18, 2024 Billing Provider: DERIK العلي Common Visit Codes: [id number] INP/OBS CARE(MOD) DERIK العلي Dec 18, 2024 10:33
[2024-12-18] MEDS ORDERED: metoclopramide 5 mg/ml inj IV PRN (12:00)
[2024-12-18] MEDS ORDERED: diatr meglu/diatrizoate 30ml oral sol.-(3 dose) bottle PO SCH (12:00)
[2024-12-18 18:00] VITALS: BP 136/72; PULSE 78; RESP 16; TEMP 98; O2SAT 96
[2024-12-18 20:00] VITALS: RESP 16; O2SAT 96
[2024-12-18] MEDS: insulin glargine (Lantus) pen - multi-dose SQ SCH (21:08)
[2024-12-18 22:00] VITALS: BP 114/64; PULSE 73; RESP 16; TEMP 97.7; O2SAT 96
[2024-12-19] VITALS (7 sets, daily range): BP systolic 138–175; BP diastolic 65–78; PULSE 76–89; RESP 16–18; TEMP 98.1–98.7; O2SAT 94–98
--- NOTE | 2024-12-19 11:20 | PROGRESS NOTE ---
Daily Progress Note Providers to CC ~ Nunez-Non Protocol Nunez Indications Met/Not Met: F/C Indications Met Antibiotic Timeout Antibiotic Ordered?: No Subjective No acute events overnight. Patient examined at bedside. No new complaints, not in acute distress. Patient denies chest pain, sob, palpitations, abdominal pain, n/v/d. Vss, pending rehab. Objective Vital Signs Date Time Temp Pulse Resp B/P (MAP) Pulse Ox O2 Delivery O2 Flow Rate FiO2 12/19/24 09:15 98.6 76 16 175/78 (110) 98 Room Air 12/18/24 08:00 0.0 Result Diagram: 12/18/2444112/18/24441 Physical Exam General: Generalized weakness, A&Ox 3, NAD HEENT: Normocephalic, PERRLA Neck: Supple, trachea midline, no JVD Chest: Clear to auscultation bilaterally Cardiovascular: RRR, S1&S2 Abdomen: Soft and nontender Extremities: No cyanosis/clubbing/or edema Central Nervous System: CN II-XII intact, no focal deficits Musculoskeletal: No paraspinal muscle tenderness, no muscle spasm Skin: Mildly erythematous b/l groins, stage II pressure ulcer in lower back Problem\Assessment\Plan Assessment & Plan Prerenal JONY 2/2 dehydration/vasomotor nephropathy Cystitis Dehydration Anemia, normocytic Anemia of chronic disease Malnutrition, moderate Chronic urinary indwelling catheter status UTI Stage II pressure ulcer- POA -CT abd/pelvis shows cystitis, no acute abdominal/pelvic abnormality, no hydronephrosis -BUN Cr 31.2, Cr 1.25, GFR 56, Hgb/Hct 11.9/34.4 no significant changes from 1 month ago -IVF, abx, follow strict I&Os 12/14: Cr downtrending on IVF, H/H slightly dropped likely hemodilutional 12/15: prelim urine cx gram neg john continued on ceftriaxone 12/16: urine cx Proteus mirabilis MDRO, discussed with ID Dr. Jeong, as patient is asymptomatic and chronic Nunez user ok to stop abx but to change Nunez; pending rehab IDDM Hyperglycemia Hypertension Chronic diastolic heart failure HLD Hyperlipidemia Left RCC s/p left nephrectomy Chronic b/l groin cellulitis -A1c 8.6%, Lantus, hyper/hypoglycemic protocol, healing wound, wound care consult, continue home statin, bbx DVT/VTE Prophylaxis: heparin Code Status: Full Code Date of Service: Dec 19, 2024 Billing Provider: DERIK العلي Common Visit Codes: [id number] INP/OBS CARE(MOD) DERIK العلي Dec 19, 2024 11:20
[2024-12-19] MEDS: insulin glargine (Lantus) pen - multi-dose SQ SCH (20:29)
[2024-12-20 06:00] VITALS: BP 165/69; PULSE 88; RESP 16; TEMP 98.7; O2SAT 96
[2024-12-20 08:15] VITALS: RESP 18
[2024-12-20 10:00] VITALS: BP 143/65; PULSE 90; RESP 16; TEMP 98.2; O2SAT 96
[2024-12-20 10:58] LABS: MEAN PLATELET VOLUME 7.9 FL (7.4-10.4); RED CELL DISTRIBUTION WIDTH 16.6 % (11.5-14.5)
[2024-12-20 11:13] LABS: CREATININE 0.91 MG/DL (0.60-1.10); TOTAL CARBON DIOXIDE 28.3 MMOL/L (24-32); eCRCL 83 ML/MIN; eGFR 81 ML/MIN
--- NOTE | 2024-12-20 15:45 | PROGRESS NOTE ---
Daily Progress Note Providers to CC Feels better today, better appetite better sleep, less pain ~ Central Line/PICC still needed: No Nunez-Non Protocol Nunez Indications Met/Not Met: F/C Indications Not Met Antibiotic Timeout Antibiotic Ordered?: Yes MRSA Education MRSA Education Provided to pt: Yes Subjective As above Objective Vital Signs Date Time Temp Pulse Resp B/P (MAP) Pulse Ox O2 Delivery O2 Flow Rate FiO2 12/20/24 10:00 98.2 90 16 143/65 (91) 96 Room Air 12/19/24 08:00 0.0 Vital signs, stable ,afebrile. Pulse Oximetry reflects adequate oxygenation. General: well developed, well nourished. Awake , alert, and oriented x4, resting comfortably in the bed, in no acute distress . Skin: Warm, dry, no pallor, no rash or petechiae. HEENT: Atraumatic, normocephalic, EOMI, anicteric sclera B; pink conjunctiva; PERRLA, normal oropharynx, moist oral and nasal mucosa. Tympanic membrane , nose , throat clear. Neck: Trachea midline. Supple, full range of motion, no JVD, bruit , hepatojugular reflex , lymphadenopathy or masses, or other lesions Cardiac: Regular rhythm, regular rate no murmurs, rubs, or gallops. Normal S1 and S2, no S3 noticed. PMI is normal. Respiratory: Equal breath sounds bilaterally, no tachypnea; lungs clear to auscultation bilaterally, no wheezing ,rub or rales, or crackles. Chest wall is symmetric and without deformity. No signs of trauma. Chest wall is nontender. No signs of respiratory distress. Resonance is normal upon percussion bilaterally. Gastrointestinal: Abdomen symmetric, non-distended, soft, non-tender, normal bowel sounds x4 quadrant, normoactive, no hepatosplenomegaly , no masses , no bruit, no flank pain bilaterally. No voluntary guarding, rebound, or rigidity. No tenderness to percussion. No pulsatile masses. Equal femoral pulses. No Mccarty's sign or McBurney point tenderness. Back; no CVA tenderness bilaterally, no deformities. Neck and back are without deformity as well. No tenderness noted on palpation of the spinous processes. Spinous processes are midline. Cervical, thoracic, and lumbar paraspinal muscles are not tender and are without spasm. : normal external genitalia, without lesions, swelling, masses or tenderness. Musculoskeletal: Extremities, normal range of motion, non-tender, muscle strength 5/5 x 4. Negative Homans signs bilaterally on lower extremity. Distal pulses full symmetrical, no clubbing, cyanosis , edema. Neurological: Speech is clear, alert, and oriented x 4. No motor or sensory deficit, deep tendon reflexes normal, cerebellar intact. Cranial nerves II-XII intact. Psych: Alert and or appropriate, normal affect. Vascular: Good distal pulses, which are equal x4; capillary refill less than 2 seconds. Lymphatic, no lymphadenopathy. Result Diagram: 12/20/24 1039 12/20/24 1039 Problem\Assessment\Plan Assessment & Plan Prerenal JONY 2/2 dehydration/vasomotor nephropathy Cystitis Dehydration Anemia, normocytic Anemia of chronic disease Malnutrition, moderate Chronic urinary indwelling catheter status UTI Stage II pressure ulcer- POA -CT abd/pelvis shows cystitis, no acute abdominal/pelvic abnormality, no hydronephrosis -BUN Cr 31.2, Cr 1.25, GFR 56, Hgb/Hct 11.9/34.4 no significant changes from 1 month ago -IVF, abx, follow strict I&Os 12/14: Cr downtrending on IVF, H/H slightly dropped likely hemodilutional 12/15: prelim urine cx gram neg john continued on ceftriaxone 12/16: urine cx Proteus mirabilis MDRO, discussed with ID Dr. Jeong, as patient is asymptomatic and chronic Nunez user ok to stop abx but to change Nunez; pending rehab IDDM Hyperglycemia Hypertension Chronic diastolic heart failure HLD Hyperlipidemia Left RCC s/p left nephrectomy Chronic b/l groin cellulitis -A1c 8.6%, Lantus, hyper/hypoglycemic protocol, healing wound, wound care consult, continue home statin, bbx DVT/VTE Prophylaxis: heparin Code Status: Full Code Sepsis Screening Reassessment Date: Dec 20, 2024 Date of Service: Dec 20, 2024 Billing Provider: SENIA ARROYO MD Common Visit Codes: [id number] INP/OBS CARE(HIGH) SENIA ARROYO MD Dec 20, 2024 15:45
[2024-12-20 18:00] VITALS: BP 143/67; PULSE 87; RESP 18; TEMP 98.3; O2SAT 94
[2024-12-20 20:00] VITALS: RESP 18; O2SAT 94
[2024-12-20 22:00] VITALS: BP 130/72; PULSE 92; RESP 18; TEMP 98.8; O2SAT 94
[2024-12-21 06:00] VITALS: BP 150/67; PULSE 96; RESP 15; TEMP 97.3; O2SAT 94
[2024-12-21 08:35] VITALS: RESP 20
[2024-12-21 10:00] VITALS: BP 117/43; PULSE 102; RESP 18; O2SAT 94
[2024-12-21] MEDS: lactose-reduced food (Ensure Enlive) - 237ml bottle PO SCH (12:30)
[2024-12-21 18:00] VITALS: BP 145/66; PULSE 91; RESP 18; TEMP 98.3; O2SAT 94
--- NOTE | 2024-12-21 19:50 | PROGRESS NOTE ---
Daily Progress Note Providers to CC Feels better today, tolerating medication fine better appetite ~ Central Line/PICC still needed: No Nunez-Non Protocol Nunez Indications Met/Not Met: F/C Indications Not Met Antibiotic Timeout Antibiotic Ordered?: Yes MRSA Education MRSA Education Provided to pt: Yes Subjective As above Objective Vital Signs Date Time Temp Pulse Resp B/P (MAP) Pulse Ox O2 Delivery O2 Flow Rate FiO2 12/21/24 10:00 102 18 117/43 (67) 94 Room Air 12/21/24 06:00 97.3 12/19/24 08:00 0.0 Vital signs, stable ,afebrile. Tachycardic, Pulse Oximetry reflects adequate oxygenation. General: well developed, well nourished. Awake , alert, and oriented x4, resting comfortably in the bed, in no acute distress . Skin: Warm, dry, no pallor, no rash or petechiae. HEENT: Atraumatic, normocephalic, EOMI, anicteric sclera B; pink conjunctiva; PERRLA, normal oropharynx, moist oral and nasal mucosa. Tympanic membrane , nose , throat clear. Neck: Trachea midline. Supple, full range of motion, no JVD, bruit , hepatojugular reflex , lymphadenopathy or masses, or other lesions Cardiac: Regular rhythm, regular rate no murmurs, rubs, or gallops. Normal S1 and S2, no S3 noticed. PMI is normal. Respiratory: Equal breath sounds bilaterally, no tachypnea; lungs clear to auscultation bilaterally, no wheezing ,rub or rales, or crackles. Chest wall is symmetric and without deformity. No signs of trauma. Chest wall is nontender. No signs of respiratory distress. Resonance is normal upon percussion bilaterally. Gastrointestinal: Abdomen symmetric, non-distended, soft, non-tender, normal bowel sounds x4 quadrant, normoactive, no hepatosplenomegaly , no masses , no bruit, no flank pain bilaterally. No voluntary guarding, rebound, or rigidity. No tenderness to percussion. No pulsatile masses. Equal femoral pulses. No Mccarty's sign or McBurney point tenderness. Back; no CVA tenderness bilaterally, no deformities. Neck and back are without deformity as well. No tenderness noted on palpation of the spinous processes. Spinous processes are midline. Cervical, thoracic, and lumbar paraspinal muscles are not tender and are without spasm. : normal external genitalia, without lesions, swelling, masses or tenderness. Musculoskeletal: Extremities, normal range of motion, non-tender, muscle strength 5/5 x 4. Negative Homans signs bilaterally on lower extremity. Distal pulses full symmetrical, no clubbing, cyanosis , edema. Neurological: Speech is clear, alert, and oriented x 4. No motor or sensory deficit, deep tendon reflexes normal, cerebellar intact. Cranial nerves II-XII intact. Psych: Alert and or appropriate, normal affect. Vascular: Good distal pulses, which are equal x4; capillary refill less than 2 seconds. Lymphatic, no lymphadenopathy. Result Diagram: 12/20/24 1039 12/20/24 1039 Problem\Assessment\Plan Assessment & Plan Prerenal JONY 2/2 dehydration/vasomotor nephropathy Cystitis Dehydration Anemia, normocytic Anemia of chronic disease Malnutrition, moderate Chronic urinary indwelling catheter status UTI Stage II pressure ulcer- POA -CT abd/pelvis shows cystitis, no acute abdominal/pelvic abnormality, no hydronephrosis -BUN Cr 31.2, Cr 1.25, GFR 56, Hgb/Hct 11.9/34.4 no significant changes from 1 month ago -IVF, abx, follow strict I&Os 12/14: Cr downtrending on IVF, H/H slightly dropped likely hemodilutional 12/15: prelim urine cx gram neg john continued on ceftriaxone 12/16: urine cx Proteus mirabilis MDRO, discussed with ID Dr. Jeong, as patient is asymptomatic and chronic Nunez user ok to stop abx but to change Nunez; pending rehab IDDM Hyperglycemia Hypertension Chronic diastolic heart failure HLD Hyperlipidemia Left RCC s/p left nephrectomy Chronic b/l groin cellulitis -A1c 8.6%, Lantus, hyper/hypoglycemic protocol, healing wound, wound care consult, continue home statin, bbx DVT/VTE Prophylaxis: heparin Code Status: Full Code Sepsis Screening Reassessment Date: Dec 21, 2024 Date of Service: Dec 21, 2024 Billing Provider: SENIA ARROYO MD Common Visit Codes: [id number] INP/OBS CARE(HIGH) SENIA ARROYO MD Dec 21, 2024 19:50
[2024-12-21 22:00] VITALS: BP 146/60; PULSE 84; RESP 15; TEMP 97.2; O2SAT 95
[2024-12-22 06:00] VITALS: BP 156/71; PULSE 90; RESP 14; TEMP 97.2; O2SAT 98
[2024-12-22 06:57] LABS: CREATININE 1.03 MG/DL (0.60-1.10); TOTAL CARBON DIOXIDE 27.3 MMOL/L (24-32); eCRCL 73 ML/MIN; eGFR 71 ML/MIN
[2024-12-22 08:00] VITALS: RESP 18
[2024-12-22 10:00] VITALS: BP 122/56; PULSE 89; RESP 16; TEMP 97.8; O2SAT 96
[2024-12-22] MEDS: lactose-reduced food (Ensure High Protein) 237ml bottle PO SCH (13:13)
[2024-12-22 18:00] VITALS: BP 157/66; PULSE 94; RESP 16; TEMP 98.1; O2SAT 94
--- NOTE | 2024-12-22 20:09 | PROGRESS NOTE ---
Daily Progress Note Providers to CC Feels better today, better sleep better appetite ~ Central Line/PICC still needed: No Nunez-Non Protocol Nunez Indications Met/Not Met: F/C Indications Met Antibiotic Timeout Antibiotic Ordered?: No MRSA Education MRSA Education Provided to pt: No Subjective As above Objective Vital Signs Date Time Temp Pulse Resp B/P (MAP) Pulse Ox O2 Delivery O2 Flow Rate FiO2 12/22/24 10:00 97.8 89 16 122/56 (78) 96 Room Air 12/19/24 08:00 0.0 Vital signs, stable ,afebrile. Pulse Oximetry reflects adequate oxygenation. General: well developed, well nourished. Awake , alert, and oriented x4, resting comfortably in the bed, in no acute distress . Skin: Warm, dry, no pallor, no rash or petechiae. HEENT: Atraumatic, normocephalic, EOMI, anicteric sclera B; pink conjunctiva; PERRLA, normal oropharynx, moist oral and nasal mucosa. Tympanic membrane , nose , throat clear. Neck: Trachea midline. Supple, full range of motion, no JVD, bruit , hepatojugular reflex , lymphadenopathy or masses, or other lesions Cardiac: Regular rhythm, regular rate no murmurs, rubs, or gallops. Normal S1 and S2, no S3 noticed. PMI is normal. Respiratory: Equal breath sounds bilaterally, no tachypnea; lungs clear to auscultation bilaterally, no wheezing ,rub or rales, or crackles. Chest wall is symmetric and without deformity. No signs of trauma. Chest wall is nontender. No signs of respiratory distress. Resonance is normal upon percussion bilaterally. Gastrointestinal: Abdomen symmetric, non-distended, soft, non-tender, normal bowel sounds x4 quadrant, normoactive, no hepatosplenomegaly , no masses , no bruit, no flank pain bilaterally. No voluntary guarding, rebound, or rigidity. No tenderness to percussion. No pulsatile masses. Equal femoral pulses. No Mccarty's sign or McBurney point tenderness. Back; no CVA tenderness bilaterally, no deformities. Neck and back are without deformity as well. No tenderness noted on palpation of the spinous processes. Spinous processes are midline. Cervical, thoracic, and lumbar paraspinal muscles are not tender and are without spasm. : normal external genitalia, without lesions, swelling, masses or tenderness. Musculoskeletal: Extremities, normal range of motion, non-tender, muscle strength 5/5 x 4. Negative Homans signs bilaterally on lower extremity. Distal pulses full symmetrical, no clubbing, cyanosis , edema. Neurological: Speech is clear, alert, and oriented x 4. No motor or sensory deficit, deep tendon reflexes normal, cerebellar intact. Cranial nerves II-XII intact. Psych: Alert and or appropriate, normal affect. Vascular: Good distal pulses, which are equal x4; capillary refill less than 2 seconds. Lymphatic, no lymphadenopathy. Result Diagram: 12/20/24 1039 12/22/24 0543 Problem\Assessment\Plan Assessment & Plan Prerenal JONY 2/2 dehydration/vasomotor nephropathy Cystitis Dehydration Anemia, normocytic Anemia of chronic disease Malnutrition, moderate Chronic urinary indwelling catheter status UTI Stage II pressure ulcer- POA -CT abd/pelvis shows cystitis, no acute abdominal/pelvic abnormality, no hydronephrosis -BUN Cr 31.2, Cr 1.25, GFR 56, Hgb/Hct 11.9/34.4 no significant changes from 1 month ago -IVF, abx, follow strict I&Os 12/14: Cr downtrending on IVF, H/H slightly dropped likely hemodilutional 12/15: prelim urine cx gram neg john continued on ceftriaxone 12/16: urine cx Proteus mirabilis MDRO, discussed with ID Dr. Jeong, as patient is asymptomatic and chronic Nunez user ok to stop abx but to change Nunez; pending rehab IDDM Hyperglycemia Hypertension Chronic diastolic heart failure HLD Hyperlipidemia Left RCC s/p left nephrectomy Chronic b/l groin cellulitis -A1c 8.6%, Lantus, hyper/hypoglycemic protocol, healing wound, wound care consult, continue home statin, bbx DVT/VTE Prophylaxis: heparin Code Status: Full Code Called the patient insurance companyClaudia Dr. states he will deny necessity of the patient to be in the hospital, and suggested if hospital agrees, hospital can appeal his decision Sepsis Screening Reassessment Date: Dec 22, 2024 Date of Service: Dec 22, 2024 Billing Provider: SENIA ARROYO MD Common Visit Codes: [id number] INP/OBS CARE(HIGH) SENIA ARROYO MD Dec 22, 2024 20:09
[2024-12-22 22:00] VITALS: BP 147/92; PULSE 87; RESP 18; TEMP 97.8; O2SAT 96
[2024-12-23 08:00] VITALS: RESP 18; O2SAT 97
[2024-12-23 09:29] VITALS: BP 153/76; PULSE 94; RESP 18; TEMP 98.8; O2SAT 97
[2024-12-23 11:41] VITALS: BP 147/70; PULSE 92; RESP 18; TEMP 98.1; O2SAT 95
[2024-12-23 18:00] VITALS: BP 150/69; PULSE 84; RESP 16; O2SAT 94
--- NOTE | 2024-12-23 18:34 | PROGRESS NOTE ---
Daily Progress Note Providers to CC ~ no new complaint today resting comfortably in the bed Central Line/PICC still needed: No Nunez-Non Protocol Nunez Indications Met/Not Met: F/C Indications Met Antibiotic Timeout Antibiotic Ordered?: No MRSA Education MRSA Education Provided to pt: No Subjective As above Objective Vital Signs Date Time Temp Pulse Resp B/P (MAP) Pulse Ox O2 Delivery O2 Flow Rate FiO2 12/23/24 11:41 98.1 92 18 147/70 (95) 95 Room Air 12/19/24 08:00 0.0 Vital signs, stable ,afebrile. Pulse Oximetry reflects adequate oxygenation. General: well developed, well nourished. Awake , alert, and oriented x4, resting comfortably in the bed, in no acute distress . Skin: Warm, dry, no pallor, no rash or petechiae. HEENT: Atraumatic, normocephalic, EOMI, anicteric sclera B; pink conjunctiva; PERRLA, normal oropharynx, moist oral and nasal mucosa. Tympanic membrane , nose , throat clear. Neck: Trachea midline. Supple, full range of motion, no JVD, bruit , hepatojugular reflex , lymphadenopathy or masses, or other lesions Cardiac: Regular rhythm, regular rate no murmurs, rubs, or gallops. Normal S1 and S2, no S3 noticed. PMI is normal. Respiratory: Equal breath sounds bilaterally, no tachypnea; lungs clear to auscultation bilaterally, no wheezing ,rub or rales, or crackles. Chest wall is symmetric and without deformity. No signs of trauma. Chest wall is nontender. No signs of respiratory distress. Resonance is normal upon percussion bilaterally. Gastrointestinal: Abdomen symmetric, non-distended, soft, non-tender, normal bowel sounds x4 quadrant, normoactive, no hepatosplenomegaly , no masses , no bruit, no flank pain bilaterally. No voluntary guarding, rebound, or rigidity. No tenderness to percussion. No pulsatile masses. Equal femoral pulses. No Mccarty's sign or McBurney point tenderness. Back; no CVA tenderness bilaterally, no deformities. Neck and back are without deformity as well. No tenderness noted on palpation of the spinous processes. Spinous processes are midline. Cervical, thoracic, and lumbar paraspinal muscles are not tender and are without spasm. : normal external genitalia, without lesions, swelling, masses or tenderness. Nunez catheter in place functional Musculoskeletal: Extremities, normal range of motion, non-tender, muscle strength 5/5 x 4. Negative Homans signs bilaterally on lower extremity. Distal pulses full symmetrical, no clubbing, cyanosis , edema. Neurological: Speech is clear, alert, and oriented x 4. No motor or sensory deficit, deep tendon reflexes normal, cerebellar intact. Cranial nerves II-XII intact. Psych: Alert and or appropriate, normal affect. Vascular: Good distal pulses, which are equal x4; capillary refill less than 2 seconds. Lymphatic, no lymphadenopathy. Result Diagram: 12/20/24 1039 12/22/24 0543 Problem\Assessment\Plan Assessment & Plan Prerenal JONY 2/2 dehydration/vasomotor nephropathy Cystitis, resolved Dehydration Anemia, normocytic Anemia of chronic disease Malnutrition, moderate Chronic urinary indwelling catheter status UTI, resolved Stage II pressure ulcer- POA -CT abd/pelvis shows cystitis, no acute abdominal/pelvic abnormality, no hydronephrosis -BUN Cr 31.2, Cr 1.25, GFR 56, Hgb/Hct 11.9/34.4 no significant changes from 1 month ago -IVF, abx, follow strict I&Os 12/14: Cr downtrending on IVF, H/H slightly dropped likely hemodilutional 12/15: prelim urine cx gram neg john continued on ceftriaxone 12/16: urine cx Proteus mirabilis MDRO, discussed with ID Dr. Jeong, as patient is asymptomatic and chronic Nunez user ok to stop abx but to change Nunez; pending rehab IDDM Hyperglycemia Hypertension Chronic diastolic heart failure HLD Hyperlipidemia Left RCC s/p left nephrectomy Chronic b/l groin cellulitis -A1c 8.6%, Lantus, hyper/hypoglycemic protocol, healing wound, wound care consult, continue home statin, bbx DVT/VTE Prophylaxis: heparin Code Status: Full Code Called the patient insurance companyClaudia Dr. states he will deny necessity of the patient to be in the hospital, and suggested if hospital agrees, hospital can appeal his decision Sepsis Screening Reassessment Date: Dec 23, 2024 Date of Service: Dec 23, 2024 Billing Provider: SENIA ARROYO MD Common Visit Codes: [id number] INP/OBS CARE(HIGH) SENIA ARROYO MD Dec 23, 2024 18:34
[2024-12-23 22:00] VITALS: BP 151/71; PULSE 94; RESP 18; TEMP 98.8; O2SAT 93
[2024-12-24 06:00] VITALS: BP 151/99; PULSE 105; RESP 17; TEMP 97.9; O2SAT 95
[2024-12-24 08:00] VITALS: RESP 17; O2SAT 97
[2024-12-24 10:00] VITALS: BP 153/78; PULSE 103; RESP 16; TEMP 97.6; O2SAT 99
[2024-12-24 15:01] VITALS: RESP 16
--- NOTE | 2024-12-24 17:16 | PROGRESS NOTE ---
Daily Progress Note Providers to CC ~ no new complaint, patient resting comfortably in the bed Central Line/PICC still needed: No Nunez-Non Protocol Nunez Indications Met/Not Met: F/C Indications Not Met Antibiotic Timeout Antibiotic Ordered?: No MRSA Education MRSA Education Provided to pt: No Subjective As above Objective Vital Signs Date Time Temp Pulse Resp B/P (MAP) Pulse Ox O2 Delivery O2 Flow Rate FiO2 12/24/24 15:01 16 Room Air 12/24/24 10:00 97.6 103 153/78 (103) 99 Vital signs, stable ,afebrile. Pulse Oximetry reflects adequate oxygenation. General: well developed, well nourished. Awake , alert, and oriented x4, resting comfortably in the bed, in no acute distress . Skin: Warm, dry, no pallor, no rash or petechiae. HEENT: Atraumatic, normocephalic, EOMI, anicteric sclera B; pink conjunctiva; PERRLA, normal oropharynx, moist oral and nasal mucosa. Tympanic membrane , nose , throat clear. Neck: Trachea midline. Supple, full range of motion, no JVD, bruit , hepatojugular reflex , lymphadenopathy or masses, or other lesions Cardiac: Regular rhythm, regular rate no murmurs, rubs, or gallops. Normal S1 and S2, no S3 noticed. PMI is normal. Respiratory: Equal breath sounds bilaterally, no tachypnea; lungs clear to auscultation bilaterally, no wheezing ,rub or rales, or crackles. Chest wall is symmetric and without deformity. No signs of trauma. Chest wall is nontender. No signs of respiratory distress. Resonance is normal upon percussion bilaterally. Gastrointestinal: Abdomen symmetric, non-distended, soft, non-tender, normal bowel sounds x4 quadrant, normoactive, no hepatosplenomegaly , no masses , no bruit, no flank pain bilaterally. No voluntary guarding, rebound, or rigidity. No tenderness to percussion. No pulsatile masses. Equal femoral pulses. No Mccarty's sign or McBurney point tenderness. Back; no CVA tenderness bilaterally, no deformities. Neck and back are without deformity as well. No tenderness noted on palpation of the spinous processes. Spinous processes are midline. Cervical, thoracic, and lumbar paraspinal muscles are not tender and are without spasm. : normal external genitalia, without lesions, swelling, masses or tenderness. Musculoskeletal: Extremities, normal range of motion, non-tender, muscle strength 5/5 x 4. Negative Homans signs bilaterally on lower extremity. Distal pulses full symmetrical, no clubbing, cyanosis , edema. Neurological: Speech is clear, alert, and oriented x 4. No motor or sensory deficit, deep tendon reflexes normal, cerebellar intact. Cranial nerves II-XII intact. Psych: Alert and or appropriate, normal affect. Vascular: Good distal pulses, which are equal x4; capillary refill less than 2 seconds. Lymphatic, no lymphadenopathy. Result Diagram: 12/20/24 1039 12/22/24 0543 Problem\Assessment\Plan Assessment & Plan Prerenal JONY 2/2 dehydration/vasomotor nephropathy Cystitis, resolved Dehydration Anemia, normocytic Anemia of chronic disease Malnutrition, moderate Chronic urinary indwelling catheter status UTI, resolved Stage II pressure ulcer- POA -CT abd/pelvis shows cystitis, no acute abdominal/pelvic abnormality, no hydronephrosis -BUN Cr 31.2, Cr 1.25, GFR 56, Hgb/Hct 11.9/34.4 no significant changes from 1 month ago -IVF, abx, follow strict I&Os 12/14: Cr downtrending on IVF, H/H slightly dropped likely hemodilutional 12/15: prelim urine cx gram neg john continued on ceftriaxone 12/16: urine cx Proteus mirabilis MDRO, discussed with ID Dr. Jeong, as patient is asymptomatic and chronic Nunez user ok to stop abx but to change Nunez; pending rehab IDDM Hyperglycemia Hypertension Chronic diastolic heart failure HLD Hyperlipidemia Left RCC s/p left nephrectomy Chronic b/l groin cellulitis -A1c 8.6%, Lantus, hyper/hypoglycemic protocol, healing wound, wound care consult, continue home statin, bbx DVT/VTE Prophylaxis: heparin Code Status: Full Code Called the patient insurance companyClaudia Dr. states he will deny necessity of the patient to be in the hospital, and suggested if hospital agrees, hospital can appeal his decision Sepsis Screening Reassessment Date: Dec 24, 2024 Date of Service: Dec 24, 2024 Billing Provider: SENIA ARROYO MD Common Visit Codes: [id number] INP/OBS CARE(HIGH) SENIA ARROYO MD Dec 24, 2024 17:15
[2024-12-24 18:00] VITALS: BP 145/52; PULSE 87; RESP 16; TEMP 98.2; O2SAT 97
[2024-12-24 22:00] VITALS: BP 150/69; PULSE 94; RESP 18; TEMP 97.8; O2SAT 96
[2024-12-25 06:00] VITALS: BP 153/77; PULSE 99; RESP 16; TEMP 97.5; O2SAT 97
[2024-12-25 08:00] VITALS: RESP 18; O2SAT 96
[2024-12-25 10:00] VITALS: BP 114/65; PULSE 92; RESP 14; TEMP 98; O2SAT 96
[2024-12-25 10:00] LABS: CREATININE 1.08 MG/DL (0.60-1.10); TOTAL CARBON DIOXIDE 25.3 MMOL/L (24-32); eCRCL 70 ML/MIN; eGFR 67 ML/MIN
--- NOTE | 2024-12-25 10:10 | RADIOLOGY REPORT ---
EXAM: CT CT HEAD INDICATION: R side weakness... TECHNIQUE: CT of the head without intravenous contrast. Coronal and sagittal reformatted images are submitted. Radiation Dose : 1. Head: CT Dose: CTDI volume is 66.2 mGy. Dose-length product is 1277.7 mGy*cm The dose indicators for CT are the volume Computed Tomography (CT) Dose Index (CTDIvol) and the Dose Length Product (DLP), and are measured in units of mGy and mGy-cm, respectively. These indicators are not patient dose, but values generated from the CT scanner acquisition factors. The report includes radiation exposure data for exposures received during this examination. All CT scans at this medical facility are performed using dose modulation techniques as appropriate to a performed exam including the following: Automated exposure control was utilized; adjustment of the MA and/or KV according to patient size; and use of iterative reconstruction technique. COMPARISON: MR MRA HEAD on DOS: 10/27/22, MR MRI HEAD on DOS: 10/27/22, CT CT STROKE ALERT on DOS: 10/25/22 FINDINGS: There is no evidence of acute intracranial hemorrhage, extra-axial collection, mass effect, midline shift, herniation or hydrocephalus. The ventricles, sulci and cisterns are age appropriate. The del toro-white differentiation is intact. The visualized paranasal sinuses and mastoid air cells are clear. No depressed calvarial fracture. The surrounding soft tissues are unremarkable. IMPRESSION: 1. No evidence of acute intracranial abnormality.
--- NOTE | 2024-12-25 16:04 | PROGRESS NOTE ---
Daily Progress Note Providers to CC Had an episode of generalized weakness associated with gait disorder today, CT was ordered of the head ~ Central Line/PICC still needed: No Nunez-Non Protocol Nunez Indications Met/Not Met: F/C Indications Not Met Antibiotic Timeout Antibiotic Ordered?: No MRSA Education MRSA Education Provided to pt: No Subjective As above Objective Vital Signs Date Time Temp Pulse Resp B/P (MAP) Pulse Ox O2 Delivery O2 Flow Rate FiO2 12/25/24 10:00 98.0 92 14 114/65 (81) 96 Room Air Vital signs, stable ,afebrile. Pulse Oximetry reflects adequate oxygenation. General: well developed, well nourished. Awake , alert, and oriented x4, resting comfortably in the bed, in no acute distress . Skin: Warm, dry, no pallor, no rash or petechiae. HEENT: Atraumatic, normocephalic, EOMI, anicteric sclera B; pink conjunctiva; PERRLA, normal oropharynx, moist oral and nasal mucosa. Tympanic membrane , nose , throat clear. Neck: Trachea midline. Supple, full range of motion, no JVD, bruit , hepatojugular reflex , lymphadenopathy or masses, or other lesions Cardiac: Regular rhythm, regular rate no murmurs, rubs, or gallops. Normal S1 and S2, no S3 noticed. PMI is normal. Respiratory: Equal breath sounds bilaterally, no tachypnea; lungs clear to auscultation bilaterally, no wheezing ,rub or rales, or crackles. Chest wall is symmetric and without deformity. No signs of trauma. Chest wall is nontender. No signs of respiratory distress. Resonance is normal upon percussion bilaterally. Gastrointestinal: Abdomen symmetric, non-distended, soft, non-tender, normal bowel sounds x4 quadrant, normoactive, no hepatosplenomegaly , no masses , no bruit, no flank pain bilaterally. No voluntary guarding, rebound, or rigidity. No tenderness to percussion. No pulsatile masses. Equal femoral pulses. No Mccarty's sign or McBurney point tenderness. Back; no CVA tenderness bilaterally, no deformities. Neck and back are without deformity as well. No tenderness noted on palpation of the spinous processes. Spinous processes are midline. Cervical, thoracic, and lumbar paraspinal muscles are not tender and are without spasm. : normal external genitalia, without lesions, swelling, masses or tenderness. Musculoskeletal: Extremities, normal range of motion, non-tender, muscle strength 5/5 x 4. Negative Homans signs bilaterally on lower extremity. Distal pulses full symmetrical, no clubbing, cyanosis , edema. Neurological: Speech is clear, alert, and oriented x 4. No motor or sensory deficit, deep tendon reflexes normal, cerebellar intact. Cranial nerves II-XII intact. Psych: Alert and or appropriate, normal affect. Vascular: Good distal pulses, which are equal x4; capillary refill less than 2 seconds. Lymphatic, no lymphadenopathy. Result Diagram: 12/25/24 0922 Problem\Assessment\Plan Assessment & Plan Prerenal JONY 2/2 dehydration/vasomotor nephropathy Cystitis, resolved Dehydration Anemia, normocytic Anemia of chronic disease Malnutrition, moderate Associated with general weakness, gait disorder, CT of the head today negative Chronic urinary indwelling catheter status UTI, resolved Stage II pressure ulcer- POA -CT abd/pelvis shows cystitis, no acute abdominal/pelvic abnormality, no hydronephrosis -BUN Cr 31.2, Cr 1.25, GFR 56, Hgb/Hct 11.9/34.4 no significant changes from 1 month ago -IVF, abx, follow strict I&Os 12/14: Cr downtrending on IVF, H/H slightly dropped likely hemodilutional 12/15: prelim urine cx gram neg john continued on ceftriaxone 12/16: urine cx Proteus mirabilis MDRO, discussed with ID Dr. Jeong, as patient is asymptomatic and chronic Nunez user ok to stop abx but to change Nunez; pending rehab IDDM Hyperglycemia Hypertension Chronic diastolic heart failure HLD Hyperlipidemia Left RCC s/p left nephrectomy Chronic b/l groin cellulitis -A1c 8.6%, Lantus, hyper/hypoglycemic protocol, healing wound, wound care consult, continue home statin, bbx DVT/VTE Prophylaxis: heparin Code Status: Full Code Called the patient insurance companyClaudia Dr. states he will deny necessity of the patient to be in the hospital, and suggested if hospital agrees, hospital can appeal his decision Sepsis Screening Reassessment Date: Dec 25, 2024 Date of Service: Dec 25, 2024 Billing Provider: SENIA ARROYO MD Common Visit Codes: [id number] INP/OBS CARE(HIGH) SENIA ARROYO MD Dec 25, 2024 16:04
[2024-12-25 18:00] VITALS: BP 134/69; PULSE 91; RESP 16; TEMP 97.2; O2SAT 96
[2024-12-25 20:00] VITALS: RESP 16; O2SAT 96
[2024-12-25 22:00] VITALS: BP 133/63; PULSE 97; RESP 16; TEMP 97.7; O2SAT 94
[2024-12-26 06:00] VITALS: BP 151/69; PULSE 99; RESP 23; TEMP 97.4; O2SAT 93
[2024-12-26 08:00] VITALS: RESP 17; O2SAT 96
[2024-12-26 10:00] VITALS: BP 139/61; PULSE 101; RESP 16; TEMP 98; O2SAT 94
[2024-12-26] MEDS ORDERED: bisacodyl 10mg suppository rectal RC PRN (12:00)
[2024-12-26] MEDS: INSULIN LISPRO 100 UNIT/ML INSULN.PEN MULTI-DOSE SQ SCH (12:14)
[2024-12-26] MEDS: bisacodyl 10mg suppository rectal RC STA (12:41)
[2024-12-26 18:00] VITALS: BP 133/57; PULSE 91; RESP 16; TEMP 97.4; O2SAT 95
[2024-12-26 20:00] VITALS: RESP 16; O2SAT 95
--- NOTE | 2024-12-26 21:43 | PROGRESS NOTE ---
Daily Progress Note Providers to CC ~ Antibiotic Timeout Antibiotic Ordered?: No Subjective The patient's blood sugars remained significantly uncontrolled I have increase the patient's Lantus change to high dose sliding scale and added 14 units of lispro PC. The patient remains weak and the family has a lot of questions about why he remains weak. Objective Vital Signs Date Time Temp Pulse Resp B/P (MAP) Pulse Ox O2 Delivery O2 Flow Rate FiO2 12/26/24 18:00 97.4 91 16 133/57 (82) 95 Room Air 12/26/24 08:00 0.0 Result Diagram: 12/25/24 0922 Gen. No acute distress alert and oriented 4 Lungs clear to ascultation bilaterally, no wheezes rales or rhonchi appreciated Heart normal sinus rhythm no murmurs rubs or clicks noted Abdomen soft nontender bowel sounds are normoactive Lower extremities no clubbing cyanosis, nor edema appreciated bilaterally Problem\Assessment\Plan Assessment & Plan Prerenal JONY 2/2 dehydration/vasomotor nephropathy Cystitis, resolved Dehydration Anemia, normocytic Anemia of chronic disease Malnutrition, moderate Associated with general weakness, gait disorder, CT of the head today negative Chronic urinary indwelling catheter status UTI, resolved Stage II pressure ulcer- POA -CT abd/pelvis shows cystitis, no acute abdominal/pelvic abnormality, no hydronephrosis -BUN Cr 31.2, Cr 1.25, GFR 56, Hgb/Hct 11.9/34.4 no significant changes from 1 month ago -IVF, abx, follow strict I&Os 12/14: Cr downtrending on IVF, H/H slightly dropped likely hemodilutional 12/15: prelim urine cx gram neg john continued on ceftriaxone 12/16: urine cx Proteus mirabilis MDRO, discussed with ID Dr. Jeong, as patient is asymptomatic and chronic Nunez user ok to stop abx but to change Nunez; pending rehab IDDM Hyperglycemia Hypertension Chronic diastolic heart failure HLD Hyperlipidemia Left RCC s/p left nephrectomy Chronic b/l groin cellulitis -A1c 8.6%, Lantus, hyper/hypoglycemic protocol, healing wound, wound care consult, continue home statin, bbx 12/26 blood glucose remains significantly uncontrolled- increase Lantus to 36 units- change to high dose sliding scale insulin and add 14 units of PC insulin DVT/VTE Prophylaxis: heparin Code Status: Full Code Called the patient insurance companyClaudia Dr. states he will deny necessity of the patient to be in the hospital, and suggested if hospital agrees, hospital can appeal his decision I encouraged the patient's to call the patient's insurance today 12/26/2024. Date of Service: Dec 26, 2024 Billing Provider: JAIME HOLDER DO Common Visit Codes: [id number] INP/OBS CARE(HIGH) JAIME HOLDER DO Dec 26, 2024 21:43
[2024-12-26] MEDS: polyethylene glycol 3350 17gm powd pack PO SCH (21:55)
[2024-12-26 22:00] VITALS: BP 146/70; PULSE 94; RESP 18; TEMP 98.5; O2SAT 94
[2024-12-26] MEDS: insulin glargine (Lantus) pen - multi-dose SQ SCH (22:16)
[2024-12-27 06:00] VITALS: BP 149/68; PULSE 86; RESP 18; TEMP 97.5; O2SAT 95
[2024-12-27 08:00] VITALS: RESP 17; O2SAT 96
[2024-12-27 08:57] LABS: MEAN PLATELET VOLUME 7.5 FL (7.4-10.4); RED CELL DISTRIBUTION WIDTH 16.7 % (11.5-14.5)
[2024-12-27 09:15] LABS: CREATININE 0.91 MG/DL (0.60-1.10); TOTAL CARBON DIOXIDE 29.1 MMOL/L (24-32); eCRCL 83 ML/MIN; eGFR 81 ML/MIN
[2024-12-27] MEDS: INSULIN LISPRO 100 UNIT/ML INSULN.PEN MULTI-DOSE SQ SCH (09:44)
[2024-12-27 10:00] VITALS: BP 150/60; PULSE 101; RESP 19; TEMP 98.4; O2SAT 98
[2024-12-27 10:06] LABS: EOSINOPHILS % (MANUAL) 2.0 % (0-6); LYMPHOCYTES % (MANUAL) 48.0 % (21-51); MONOCYTES % (MANUAL) 14.0 % (2-12); NEUTROPHILS % (MANUAL) 36.0 % (42-75)
[2024-12-27 10:07] LABS: PLATELET ESTIMATE INCREASED
--- NOTE | 2024-12-27 11:19 | PROGRESS NOTE ---
Daily Progress Note Providers to CC ~ Antibiotic Timeout Antibiotic Ordered?: No Subjective No acute events overnight. Patient examined at bedside. No new complaints. Patient denies chest pain, sob, palpitations, abdominal pain, n/v/d. Vss, labs unremarkable. Pending rehab. Objective Vital Signs Date Time Temp Pulse Resp B/P (MAP) Pulse Ox O2 Delivery O2 Flow Rate FiO2 12/27/24 09:11 91 12/27/24 08:00 17 96 Room Air 12/27/24 06:00 97.5 149/68 (95) 12/26/24 08:00 0.0 Result Diagram: 12/27/2445 12/27/2445 Physical Exam General: Generalized weakness, A&Ox 3, NAD HEENT: Normocephalic, PERRLA Neck: Supple, trachea midline, no JVD Chest: Clear to auscultation bilaterally Cardiovascular: RRR, S1&S2 Abdomen: Soft and nontender Extremities: No cyanosis/clubbing/or edema Central Nervous System: CN II-XII intact, no focal deficits Musculoskeletal: No paraspinal muscle tenderness, no muscle spasm Skin: Mildly erythematous b/l groins, stage II pressure ulcer in lower back Problem\Assessment\Plan Assessment & Plan Prerenal JONY 2/2 dehydration/vasomotor nephropathy Cystitis, resolved Dehydration Anemia, normocytic Anemia of chronic disease Malnutrition, moderate Associated with general weakness, gait disorder, CT of the head today negative Chronic urinary indwelling catheter status UTI, resolved Stage II pressure ulcer- POA -CT abd/pelvis shows cystitis, no acute abdominal/pelvic abnormality, no hydronephrosis -BUN Cr 31.2, Cr 1.25, GFR 56, Hgb/Hct 11.9/34.4 no significant changes from 1 month ago -IVF, abx, follow strict I&Os 12/14: Cr downtrending on IVF, H/H slightly dropped likely hemodilutional 12/15: prelim urine cx gram neg john continued on ceftriaxone 12/16: urine cx Proteus mirabilis MDRO, discussed with ID Dr. Jeong, as patient is asymptomatic and chronic Nunez user ok to stop abx but to change Nunez; pending rehab IDDM Hyperglycemia Hypertension Chronic diastolic heart failure HLD Hyperlipidemia Left RCC s/p left nephrectomy Chronic b/l groin cellulitis -A1c 8.6%, Lantus, hyper/hypoglycemic protocol, healing wound, wound care consult, continue home statin, bbx 12/26 blood glucose remains significantly uncontrolled- increase Lantus to 36 units- change to high dose sliding scale insulin and add 14 units of PC insulin 12/27: Lantus dose adjusted DVT/VTE Prophylaxis: heparin Code Status: Full Code Called the patient insurance companyClaudia Dr. states he will deny necessity of the patient to be in the hospital, and suggested if hospital agrees, hospital can appeal his decision I encouraged the patient's to call the patient's insurance today 12/26/2024. Date of Service: Dec 27, 2024 Billing Provider: DERIK العلي Common Visit Codes: [id number] INP/OBS CARE(MOD) DERIK العلي Dec 27, 2024 11:19
[2024-12-27 18:00] VITALS: BP 160/76; PULSE 92; RESP 14; TEMP 97.6; O2SAT 95
[2024-12-27 22:00] VITALS: BP 174/91; PULSE 104; RESP 16; TEMP 98.4; O2SAT 96
[2024-12-27] MEDS: insulin glargine (Lantus) pen - multi-dose SQ SCH (22:32)
[2024-12-27 22:50] VITALS: BP 138/73; PULSE 94
[2024-12-28 05:48] VITALS: BP 113/40; PULSE 77; RESP 14; TEMP 98.4; O2SAT 97
[2024-12-28 08:30] VITALS: RESP 16
[2024-12-28 10:00] VITALS: BP 118/65; PULSE 95; RESP 16; TEMP 97.8; O2SAT 98
[2024-12-28 10:41] LABS: MEAN PLATELET VOLUME 8.0 FL (7.4-10.4); RED CELL DISTRIBUTION WIDTH 16.2 % (11.5-14.5)
[2024-12-28 10:55] LABS: CREATININE 0.88 MG/DL (0.60-1.10); TOTAL CARBON DIOXIDE 26.0 MMOL/L (24-32); eCRCL 86 ML/MIN; eGFR 85 ML/MIN
--- NOTE | 2024-12-28 11:47 | PROGRESS NOTE ---
Daily Progress Note Providers to CC ~ Antibiotic Timeout Antibiotic Ordered?: No Subjective No acute events overnight. Patient examined at bedside. No new complaints. Patient denies chest pain, sob, palpitations, abdominal pain, n/v/d. Vss, labs unremarkable. Pending rehab. Objective Vital Signs Date Time Temp Pulse Resp B/P (MAP) Pulse Ox O2 Delivery O2 Flow Rate FiO2 12/28/24 10:00 97.8 95 16 118/65 (82) 98 Room Air 12/26/24 08:00 0.0 Result Diagram: 12/28/24 1009 12/28/24 1009 Physical Exam General: Generalized weakness, A&Ox 3, NAD HEENT: Normocephalic, PERRLA Neck: Supple, trachea midline, no JVD Chest: Clear to auscultation bilaterally Cardiovascular: RRR, S1&S2 Abdomen: Soft and nontender Extremities: No cyanosis/clubbing/or edema Central Nervous System: CN II-XII intact, no focal deficits Musculoskeletal: No paraspinal muscle tenderness, no muscle spasm Skin: Mildly erythematous b/l groins, stage II pressure ulcer in lower back Problem\Assessment\Plan Assessment & Plan Prerenal JONY 2/2 dehydration/vasomotor nephropathy Cystitis, resolved Dehydration Anemia, normocytic Anemia of chronic disease Malnutrition, moderate Associated with general weakness, gait disorder, CT of the head today negative Chronic urinary indwelling catheter status UTI, resolved Stage II pressure ulcer- POA -CT abd/pelvis shows cystitis, no acute abdominal/pelvic abnormality, no hydronephrosis -BUN Cr 31.2, Cr 1.25, GFR 56, Hgb/Hct 11.9/34.4 no significant changes from 1 month ago -IVF, abx, follow strict I&Os 12/14: Cr downtrending on IVF, H/H slightly dropped likely hemodilutional 12/15: prelim urine cx gram neg john continued on ceftriaxone 12/16: urine cx Proteus mirabilis MDRO, discussed with ID Dr. Jeong, as patient is asymptomatic and chronic Nunez user ok to stop abx but to change Nunez; pending rehab IDDM Hyperglycemia Hypertension Chronic diastolic heart failure HLD Hyperlipidemia Left RCC s/p left nephrectomy Chronic b/l groin cellulitis -A1c 8.6%, Lantus, hyper/hypoglycemic protocol, healing wound, wound care consult, continue home statin, bbx 12/26 blood glucose remains significantly uncontrolled- increase Lantus to 36 units- change to high dose sliding scale insulin and add 14 units of PC insulin 12/27: Lantus dose adjusted DVT/VTE Prophylaxis: heparin Code Status: Full Code Called the patient insurance companyClaudia Dr. states he will deny necessity of the patient to be in the hospital, and suggested if hospital agrees, hospital can appeal his decision I encouraged the patient's to call the patient's insurance today 12/26/2024. Date of Service: Dec 28, 2024 Billing Provider: DERIK العلي Common Visit Codes: [id number] INP/OBS CARE(MOD) DERIK العلي Dec 28, 2024 11:46
[2024-12-28] MEDS: magnesium hydroxide 30ml (MOM) UD suspension PO PRN (13:07)
[2024-12-28 18:00] VITALS: BP 141/75; PULSE 98; RESP 16; O2SAT 94
[2024-12-28 20:00] VITALS: RESP 18; O2SAT 96
[2024-12-28 22:00] VITALS: BP 155/70; PULSE 94; RESP 20; TEMP 98.1; O2SAT 97
[2024-12-28] MEDS: insulin glargine (Lantus) pen - multi-dose SQ SCH (22:08)
[2024-12-29 06:10] LABS: CREATININE 0.93 MG/DL (0.60-1.10); TOTAL CARBON DIOXIDE 28.8 MMOL/L (24-32); eCRCL 81 ML/MIN; eGFR 79 ML/MIN
[2024-12-29 06:27] LABS: MEAN PLATELET VOLUME 8.2 FL (7.4-10.4); RED CELL DISTRIBUTION WIDTH 16.3 % (11.5-14.5)
[2024-12-29 07:50] VITALS: BP 150/77; PULSE 98; RESP 14; TEMP 98.5; O2SAT 94
[2024-12-29 10:00] VITALS: BP 141/74; PULSE 94; RESP 16; TEMP 97.6; O2SAT 95
--- NOTE | 2024-12-29 10:51 | PROGRESS NOTE ---
Daily Progress Note Providers to CC ~ Antibiotic Timeout Antibiotic Ordered?: No Subjective No acute events overnight. Patient examined at bedside. No new complaints, not in acute distress. Patient denies chest pain, sob, palpitations, abdominal pain, n/v/d. Vss, labs unremarkable. Pending rehab. Objective Vital Signs Date Time Temp Pulse Resp B/P (MAP) Pulse Ox O2 Delivery O2 Flow Rate FiO2 12/29/24 07:50 98.5 98 14 150/77 (101) 94 Room Air 12/28/24 20:00 0.0 Result Diagram: 12/29/2452012/29/24520 Physical Exam General: Generalized weakness, A&Ox 3, NAD HEENT: Normocephalic, PERRLA Neck: Supple, trachea midline, no JVD Chest: Clear to auscultation bilaterally Cardiovascular: RRR, S1&S2 Abdomen: Soft and nontender Extremities: No cyanosis/clubbing/or edema Central Nervous System: CN II-XII intact, no focal deficits Musculoskeletal: No paraspinal muscle tenderness, no muscle spasm Skin: Mildly erythematous b/l groins, stage II pressure ulcer in lower back Problem\Assessment\Plan Assessment & Plan Prerenal JONY 2/2 dehydration/vasomotor nephropathy Cystitis, resolved Dehydration Anemia, normocytic Anemia of chronic disease Malnutrition, moderate Associated with general weakness, gait disorder, CT of the head today negative Chronic urinary indwelling catheter status UTI, resolved Stage II pressure ulcer- POA -CT abd/pelvis shows cystitis, no acute abdominal/pelvic abnormality, no hydronephrosis -BUN Cr 31.2, Cr 1.25, GFR 56, Hgb/Hct 11.9/34.4 no significant changes from 1 month ago -IVF, abx, follow strict I&Os 12/14: Cr downtrending on IVF, H/H slightly dropped likely hemodilutional 12/15: prelim urine cx gram neg john continued on ceftriaxone 12/16: urine cx Proteus mirabilis MDRO, discussed with ID Dr. Jeong, as patient is asymptomatic and chronic Nunez user ok to stop abx but to change Nunez; pending rehab IDDM Hyperglycemia Hypertension Chronic diastolic heart failure HLD Hyperlipidemia Left RCC s/p left nephrectomy Chronic b/l groin cellulitis -A1c 8.6%, Lantus, hyper/hypoglycemic protocol, healing wound, wound care consult, continue home statin, bbx 12/26 blood glucose remains significantly uncontrolled- increase Lantus to 36 units- change to high dose sliding scale insulin and add 14 units of PC insulin 12/27: Lantus dose adjusted DVT/VTE Prophylaxis: heparin Code Status: Full Code Called the patient insurance company, Claudia De La Paz states he will deny necessity of the patient to be in the hospital, and suggested if hospital agrees, hospital can appeal his decision I encouraged the patient's to call the patient's insurance today 12/26/2024. Date of Service: Dec 29, 2024 Billing Provider: DERIK العلي Common Visit Codes: [id number] INP/OBS CARE(MOD) DERIK العلي Dec 29, 2024 10:51
[2024-12-29] MEDS: lactose-reduced food (Ensure High Protein) 237ml bottle PO SCH (13:56)
[2024-12-29 18:00] VITALS: BP 131/71; PULSE 96; RESP 16; TEMP 98.1; O2SAT 97
[2024-12-29 20:00] VITALS: RESP 16; O2SAT 97
[2024-12-29] MEDS: insulin glargine (Lantus) pen - multi-dose SQ SCH (21:01)
[2024-12-29 22:00] VITALS: BP 131/49; PULSE 83; RESP 16; TEMP 97.5; O2SAT 96
[2024-12-30 06:00] VITALS: BP 124/58; PULSE 95; RESP 17; TEMP 97.8; O2SAT 93
[2024-12-30 10:00] VITALS: BP 128/53; PULSE 98; RESP 16; TEMP 98.7; O2SAT 95
--- NOTE | 2024-12-30 10:40 | PROGRESS NOTE ---
Daily Progress Note Providers to CC ~ Antibiotic Timeout Antibiotic Ordered?: No Subjective No acute events overnight. Patient examined at bedside. No new complaints, not in acute distress. Patient denies chest pain, sob, palpitations, abdominal pain, n/v/d. Vss, labs refused by patient. Pending rehab. Objective Vital Signs Date Time Temp Pulse Resp B/P (MAP) Pulse Ox O2 Delivery O2 Flow Rate FiO2 12/30/24 07:50 95 12/30/24 06:00 97.8 17 124/58 (80) 93 Room Air 12/29/24 20:00 0.0 Result Diagram: 12/29/2452012/29/24520 Physical Exam General: Generalized weakness, A&Ox 3, NAD HEENT: Normocephalic, PERRLA Neck: Supple, trachea midline, no JVD Chest: Clear to auscultation bilaterally Cardiovascular: RRR, S1&S2 Abdomen: Soft and nontender Extremities: No cyanosis/clubbing/or edema Central Nervous System: CN II-XII intact, no focal deficits Musculoskeletal: No paraspinal muscle tenderness, no muscle spasm Skin: Mildly erythematous b/l groins, stage II pressure ulcer in lower back Problem\Assessment\Plan Assessment & Plan Prerenal JONY 2/2 dehydration/vasomotor nephropathy Cystitis, resolved Dehydration Anemia, normocytic Anemia of chronic disease Malnutrition, moderate Associated with general weakness, gait disorder, CT of the head today negative Chronic urinary indwelling catheter status UTI, resolved Stage II pressure ulcer- POA -CT abd/pelvis shows cystitis, no acute abdominal/pelvic abnormality, no hydronephrosis -BUN Cr 31.2, Cr 1.25, GFR 56, Hgb/Hct 11.9/34.4 no significant changes from 1 month ago -IVF, abx, follow strict I&Os 12/14: Cr downtrending on IVF, H/H slightly dropped likely hemodilutional 12/15: prelim urine cx gram neg john continued on ceftriaxone 12/16: urine cx Proteus mirabilis MDRO, discussed with ID Dr. Jeong, as patient is asymptomatic and chronic Nunez user ok to stop abx but to change Nunez; pending rehab IDDM Hyperglycemia Hypertension Chronic diastolic heart failure HLD Hyperlipidemia Left RCC s/p left nephrectomy Chronic b/l groin cellulitis -A1c 8.6%, Lantus, hyper/hypoglycemic protocol, healing wound, wound care consult, continue home statin, bbx 12/26 blood glucose remains significantly uncontrolled- increase Lantus to 36 units- change to high dose sliding scale insulin and add 14 units of PC insulin 12/27: Lantus dose adjusted DVT/VTE Prophylaxis: heparin Code Status: Full Code Called the patient insurance companyClaudia Dr. states he will deny necessity of the patient to be in the hospital, and suggested if hospital agrees, hospital can appeal his decision I encouraged the patient's to call the patient's insurance today 12/26/2024. Date of Service: Dec 30, 2024 Billing Provider: DERIK العلي Common Visit Codes: [id number] INP/OBS CARE(HIGH) DERIK العلي Dec 30, 2024 10:40
--- NOTE | 2024-12-31 11:35 | DISCHARGE SUMMARY ---
Discharge Summary Providers to CC ~ Discharge Summary Admission Diagnosis: JONY Hospital Course DATE OF ADMISSION: 12/13/24 DATE OF DISCHARGE: 12/30/24 Discharge Diagnosis\Comment: Prerenal JONY 2/2 dehydration/vasomotor nephropathy Cystitis, resolved Dehydration Anemia, normocytic Anemia of chronic disease Malnutrition, moderate Associated with general weakness, gait disorder, CT of the head today negative Chronic urinary indwelling catheter status UTI, resolved Stage II pressure ulcer- POA IDDM Hyperglycemia Hypertension Chronic diastolic heart failure HLD Hyperlipidemia Left RCC s/p left nephrectomy Chronic b/l groin cellulitis Generalized weakness Operations\Procedures: None Consultants: Alejandra Hartman Dr. Complications: None Condition on DC: Stable for transfer Discharge Summary: History of Present Illness Charlie Bang is a 74-year-old female with a past medical history of diastolic heart failure, chronic indwelling catheter status, chronic b/l groin cellulitis, IDDM who was brought to the ED from [facility] due to concerns for low H/H. Patient denies prior MD/CAD, CVA, cardiac arrhythmia, DVT/PE, or GIB. Patient denies chest pain, palpitations, shortness of breath, abdominal pain, n/v/d, melena, hematochezia, hematemesis, fatigue, dizziness, loss of consciousness. Initial diagnostic findings are notable for findings of acute kidney injury. Patient is to be admitted for further workups and treatment. Hospital Course Diagnostic findings were notable for renal insufficiency and urinalysis revealing urinary tract infection. Patient was initial treated with intravenous fluids and empirical antibiotics. On following days, urine culture resulted positive for MDRO Proteus mirabilis. Case was discussed with ADRIENNE Jeong with recommendation against antibiotics as patient is asymptomatic. Patient did not experience further complications throughout the entire hospital stay and remained clinically hemodynamically stable. Patient was seen and examined on the day of discharge. Vss. Patient refused labs on day of discharge. All labs, diagnostic workups, discharge plan discussed with patient in details during visit before discharge. All questions and concerns answered to the best of my professional knowledge. Patient is to be discharged to rehab for continued management. Discharge was delayed due to rehab approval. Physical Exam General: Generalized weakness, A&Ox 3, NAD HEENT: Normocephalic, PERRLA Neck: Supple, trachea midline, no JVD Chest: Clear to auscultation bilaterally Cardiovascular: RRR, S1&S2 Abdomen: Soft and nontender Extremities: No cyanosis/clubbing/or edema Central Nervous System: CN II-XII intact, no focal deficits Musculoskeletal: No paraspinal muscle tenderness, no muscle spasm Skin: Mildly erythematous b/l groins, stage II pressure ulcer in lower back *Problems/Diagnosis: (1) JONY (acute kidney injury) Status: Resolved Total Time Spent on D/C: > 30 Minutes Date of Service: Dec 30, 2024 Billing Provider: DERIK العلي Common Visit Codes: [id number] DISCH DAY >30min DERIK العلي Dec 31, 2024 11:35
== END 2024-12-30 18:10 | DRG 698 ==
LOC: ER 12:27 → ED HOLD 16:36 → ORTHO 4S 19:12
PROVIDERS: ADMIT Nurse Practitioner Family; ATTEND Nurse Practitioner Family
PROC: BW211ZZ Computerized Tomography (CT Scan) of Abdomen and Pelvis using Low Osmolar Contrast (ICD-10-PCS; principal; 2024-12-13)
DX: T83.511A Infection and inflammatory reaction due to indwelling urethral catheter, initial encounter (principal); N17.0 Acute kidney failure with tubular necrosis; I50.32 Chronic diastolic (congestive) heart failure; E44.0 Moderate protein-calorie malnutrition; L03.314 Cellulitis of groin; N30.90 Cystitis, unspecified without hematuria; E86.0 Dehydration; L89.152 Pressure ulcer of sacral region, stage 2; E11.8 Type 2 diabetes mellitus with unspecified complications; I11.0 Hypertensive heart disease with heart failure; D63.8 Anemia in other chronic diseases classified elsewhere; Y84.6 Urinary catheterization as the cause of abnormal reaction of the patient, or of later complication, without mention of misadventure at the time of the procedure; E11.65 Type 2 diabetes mellitus with hyperglycemia; E78.5 Hyperlipidemia, unspecified; Z88.5 Allergy status to narcotic agent; Z91.09 Other allergy status, other than to drugs and biological substances; Z79.84 Long term (current) use of oral hypoglycemic drugs; Z79.899 Other long term (current) drug therapy; Z90.5 Acquired absence of kidney; Y92.89 Other specified places as the place of occurrence of the external cause
CPT/HCPCS: 36415; 70450; 74176; 80048; 80053; 81001; 82550; 82728; 82948; 83540; 83550; 83690; 83735; 84145; 85007; 85025; 87077; 87081; 87088; 87186; 97110; 97116; 97162; 97530; 99285; A4314; A4649; A5200; A6209; A6212; A6213; A6222; A6223; A6449; G0378; J0696; J1644; J1815; J2270; J2543; J7030

== ENCOUNTER 2025-03-05 10:14 | Emergency (ER) | payer MEDICARE ==
[~2025-03-05] VITALS: Ht 188 cm; Wt 82.0 kg
[2025-03-05] MEDS ORDERED: FERR325T28 PO (10:51)
[2025-03-05] MEDS ORDERED: NO HOME MEDS (10:51)
[2025-03-05] MEDS ORDERED: CRAN450T9 PO (10:51)
[2025-03-05] MEDS ORDERED: INSU100C10 SQ (10:51)
[2025-03-05] MEDS ORDERED: ONDA-243 PO (10:51)
[2025-03-05] MEDS ORDERED: MIRT-142 PO (10:51)
[2025-03-05] MEDS ORDERED: DUPI300S SUBCUT (10:51)
[2025-03-05] MEDS ORDERED: DOCU100C40 PO (10:51)
[2025-03-05] MEDS ORDERED: MELA1TAB28 PO (10:51)
[2025-03-05] MEDS ORDERED: HYDROcodone/acetaminophen 5mg/325mg tablet PO ONE (12:35)
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
[2025-03-05] MEDS: HYDROcodone/acetaminophen 5mg/325mg tablet PO ONE (13:36)
--- NOTE | 2025-03-05 14:42 | RADIOLOGY REPORT ---
CLINICAL HISTORY: Headache TECHNIQUE: Helical imaging carried out from skull base to vertex without intravenous contrast. This exam was performed according to our departmental dose optimization program. Up-to-date CT equipment and radiation dose reduction techniques are utilized as appropriate. CTDIVol: 69.77 mGy DLP: 1308 3.67 mGy-cm WID: COMPARISON: CT CT HEAD on DOS: 01/12/25 FINDINGS: There is mild cerebral volume loss with concordant prominence of the subarachnoid spaces and ventricles. Mild patchy low attenuation in the cerebral white matter consistent with nonspecific white matter disease. There is no midline shift or mass effect. The [place] white matter interfaces are maintained. The basal cisterns are patent. There is no evidence of acute intracranial hemorrhage or extra-axial fluid collection. The mastoid air cells are well-aerated. There is paranasal sinus mucosal thickening with complete opacification of the left frontal sinus likely chronic. IMPRESSION: 1. No acute intracranial abnormality. 2. Mild cerebral volume loss and mild chronic microvascular ischemic change.
--- NOTE | 2025-03-05 14:51 | RADIOLOGY REPORT ---
CLINICAL HISTORY: Headache TECHNIQUE: CT exam of the cervical spine was performed without intravenous contrast. This exam was performed according to our departmental dose optimization program. Up-to-date CT equipment and radiation dose reduction techniques are utilized as appropriate. CTDI: 20.63 DLP: 549.29 WID: COMPARISON: None FINDINGS: There is normal cervical alignment. The vertebral body heights are maintained. No acute cervical fracture or subluxation is identified. Bony demineralization. Cervical spondylosis with multilevel osteophyte formation and multilevel [id number] disc space narrowing. There is multilevel facet and uncovertebral hypertrophy resulting in multilevel bony neural foraminal stenosis up to Severe on the right at C5-C6. No high-grade spinal stenosis. Flowing anter ior osteophytes concordant with dish. Sub 5 mm right apical nodule on series 2, image 11. There are mild inspissated secretions in the visualized upper trachea. The posterior paraspinal soft tissues are intact. Mild calcified plaque of the bilateral carotid bifurcations. IMPRESSION: 1. No acute fracture or traumatic malalignment. 2. Multilevel cervical spondylosis. There is up to Severe degenerative Right neural foraminal stenosis at C5-C6. 3. Sub 5 mm right apical pulmonary nodule, nonspecific on initial exam. If there are risk factors for pulmonary malignancy, follow-up CT chest could be obtained in 1 year for re-evaluation.
[2025-03-05] MEDS ORDERED: HYDR-3965 PO (15:25)
[2025-03-05 15:26] VITALS: BP 139/98; PULSE 95; RESP 20; TEMP 98.1; O2SAT 93
== END 2025-03-05 19:28 | disposition home or self-care (01) ==
LOC: ER 10:15
DX: M47.899 Other spondylosis, site unspecified (principal); R51.9 Headache, unspecified; E11.9 Type 2 diabetes mellitus without complications; G89.29 Other chronic pain; I10 Essential (primary) hypertension; J44.9 Chronic obstructive pulmonary disease, unspecified; Z87.440 Personal history of urinary (tract) infections; Z90.49 Acquired absence of other specified parts of digestive tract; Z91.048 Other nonmedicinal substance allergy status; Z88.1 Allergy status to other antibiotic agents; Z88.5 Allergy status to narcotic agent; Z79.899 Other long term (current) drug therapy; Z79.84 Long term (current) use of oral hypoglycemic drugs; Z98.890 Other specified postprocedural states
CPT/HCPCS: 70450; 72125; 99285